=== PATIENT | male | born 1945 | race African-American/Black ===

== ENCOUNTER 2018-08-29 11:08 | Inpatient (IN) | payer OTHER ==
--- OUTSIDE RECORDS SUMMARY | 2018-08-29 11:10 | XMS REPORT | Clinical Summary ---
:1945 Author Organization [facility] Address [address] [place] [address] Care Team Providers Name Role Phone Asked, No Pcp Primary Care Provider Unavailable Allergies No Known Allergies Medications Medication Sig Dispensed Refills Start Date End Date Status amLODIPine (NORVASC) Take 10 mg by mouth 0 Active 10 mg tablet daily. atorvastatin Take 20 mg by mouth 0 Active (LIPITOR) 20 MG daily. Default OP tablet ins furosemide (LASIX) 20 Take 20 mg by mouth 0 Active mg tablet 2 (two) times a day. latanoprost (XALATAN) Administer 1 drop 0 Active 0.005 % ophthalmic to both eyes daily. solution insulin detemir Inject 45 Units 0 Active (LEVEMIR) 100 unit/mL under the skin injection nightly. insulin ASPART Inject 5 Units 0 Active (NovoLOG) 100 unit/mL under the skin 3 injection (three) times a day before meals. calcium carbonate 650 Take 1 tablet by 0 Active mg calcium (1,625 mg) mouth as needed for tablet indigestion. cholecalciferol, Take 2,000 Units by 0 Active vitamin D3, (VITAMIN mouth daily. D3) 2,000 unit capsule capsule metoprolol succinate Take 25 mg by mouth 0 Active XL (TOPROL-XL) 25 mg daily. 24 hr tablet WILMA ASPIRIN ORAL Take 81 mg by mouth 0 Active daily. Active Problems Problem Noted Date Chronic kidney disease (CKD), stage V 08/17/2017 Encounters Date Type Specialty Care Team Description 09/03/2017 Office Visit General Surgery Carlos Albert Surgery follow- up MD Kojo (Primary Dx) after 08/28/2017 Social History Tobacco Use Types Packs/Day Years Used Date Never Smoker Smokeless Tobacco: Never Used Alcohol Use Drinks/Week oz/Week Comments No Sex Assigned at Date Recorded Not on file Job Start Date Occupation Industry Not on file Not on file Not on file Travel History Travel Start Travel End No recent travel history available. Last Filed Vital Signs Vital Sign Reading Time Taken Blood Pressure 164/75 09/03/2017 1:23 PM CDT Pulse 78 09/03/2017 1:23 PM CDT Temperature - - Respiratory Rate - - Oxygen Saturation - - Inhaled Oxygen Concentration - - Weight 117 kg (257 lb) 09/03/2017 1:23 PM CDT Height 165.1 cm (5' 5") 09/03/2017 1:23 PM CDT Body Mass Index 42.77 09/03/2017 1:23 PM CDT Plan of Treatment Health Maintenance Due Date Last Done Comments COLON CANCER SCREENING 1997 SHINGLES VACCINES (#1) 1997 65+ PNEUMOCOCCAL VACCINE (1 of 2 - PCV13) 2012 PNEUMOCOCCAL POLYSACCHARIDE VACCINE AGE 65 AND OVER 2012 INFLUENZA VACCINE 12/30/2017 Implants Implanted Type Area Candy Butcher Device Shelf Model / Identifier Expiration Serial / Date Lot Catheter 19.5cm Peritoneal Dialysis Extended - [id number] Surgical N/A: N/A 04/30/2022 SNPS 14030 / Implanted: 08/17/2017 (Quantity not on file) Implants; / Expanders; [id number] Extenders; Surgical Wires Results Not on fileafter 08/28/2017 Insurance Payer Benefit Plan / Group Subscriber ID Type Phone Address MEDICARE MEDICARE PART A AND B xxxxxxxxxx Medicare [place], [place] (Home) [place] [address] Advance Directives Patient has advance care planning documents on file. For more information, please contact:[address] [place] [address]
[2018-08-29 11:54] LABS: Absolute Lymphocytes (CBC) 0.6 K/uL (0.7-4.9); Absolute Monocytes 0.9 K/uL (0.1-1.3); Absolute Neutrophil 18.5 K/uL (1.8-8.0); Basophils % 0.4 % (0-1.3); Eosinophils % 0.1 % (0-4.4); Hematocrit 34.5 % (39.6-49.0); Lymphocytes % 3.1 % (15.3-44.8); MPV 8.3 fL (7.6-11.3); Monocytes % 4.6 % (3.3-12.3); RBC Red Blood Cell Count 4.18 M/uL (4.33-5.43)
--- NOTE | 2018-08-29 12:18 | RAD REPORT ---
EXAM DESCRIPTION: CT - Stone Protocol - 08/29/2018 12:02 pm CLINICAL HISTORY: left flank pain, hematuria, peritoneal dialysis COMPARISON: July 2015 TECHNIQUE: Axial 5 mm thick images were obtained without oral or IV contrast. The [id number] span s the entirety of the system including uppermost abdomen and lung bases. All CT scans are performed using dose optimization technique as appropriate and may include automated exposure control or mA/KV adjustment according to patient size. FINDINGS: No hydronephrosis present. No obstructing or nonobstructing calculi. Bilateral perinephric stranding is present new from the 2016 comparison. This is slightly worse on the left. No suspicious renal masses. Isodense masses and pyelonephritis are not excluded on a stone protocol CT scan. Urina ry bladder is mostly contracted. No gross abnormality seen. No significant adrenal finding. Imaged portions of the liver, spleen and pancreas show no suspicious findings on non-contrast imaging . Small cyst posterior subcapsular right lobe has not changed since 2016. No gallbladder or biliary t ree abnormality seen. Gallstones can be occult. No dilated bowel loops or bowel wall thickening. No acute GI process identifiable. No hernia, mass or bulky lymphadenopathy noted. No free air or pneumatosis. Trace amount of peritonea l free fluid is present not unexpected. Patient is a peritoneal dialysis patient. No acute bone finding. Vascular calcifications are present. IMPRESSION: No hydronephrosis or obstructing calculus present. Left greater than right perinephric stranding is present. This is new from 2016. Pyelonephritis and i sodense masses are not excluded. No acute finding. Trace amount of free fluid is present not unexpected given the peritoneal dialysis status. Isodense masses and pyelonephritis are not excluded on stone protocol technique.
[2018-08-29 12:36] LABS: Blood Morphology Comment NOT SEEN (NOT SEEN); Platelet Estimate ADEQ
--- NOTE | 2018-08-29 12:41 | EDPHYS ---
Physician Documentation [facility] Name: Jeffery Sneed Age: 73 yrs Sex: Male : 1945 Arrival Date: 08/29/2018 Time: 11:11 Bed 4 Private [facility] Phys[facility] Rojelio Ortiz HPI: 08/29 11:28 This 73 yrs old Black Male presents to ER via Unassigned with complaints of Weakness, rn Urinary Problem. 11:29 The patient presents with pain that is acute. The symptoms are located in the low back. rn Onset: The symptoms/episode began/occurred 2 week(s) ago. The pain does not radiate. Severity of symptoms: At their worst the symptoms were moderate, in the emergency department the symptoms are unchanged. The patient has experienced similar episodes in the past. Reports muscle spasms of back for 2 weeks, reports told by dialysis nurse to get checked because temperature was 99, patient reports painful urination and small amount of blood in urine. No chest pain/cough/sob/abd pain. Denies vomiting/diarrhea. NO trauma. No known prostate problems. . Historical: - Allergies: 11:33 NKA; iw - Home Meds: 11:36 Levemir 100 unit/mL subcutaneous soln 10 units in morning, 50 units at night [Active]; iw Novolog 100 unit/mL Sub-Q soln before meals [Active]; Vitamin C Oral daily [Active]; lisinopril 20 mg oral tab once daily [Active]; calcitriol oral oral MWF [Active]; metoprolol tartrate 25 mg Oral tab 1 tab once daily [Active]; amlodipine 10 mg tab 1 tab once daily [Active]; furosemide 80 mg Oral tab 1 tab 2 times per day [Active]; aspirin 81 mg Oral TbEC 1 tab once daily [Active]; calcium carbonate 600 mg (1,500 mg) Oral tab daily [Active]; Vitamin D Oral daily [Active]; - PMHx: 11:33 Glaucoma; Hyperlipidemia; Hypertension; IDDM; Dialysis; iw - PSHx: 11:33 None; iw - Immunization history:: Adult Immunizations up to date. - Social history:: Smoking status: Patient/guardian denies using tobacco. - Family history:: not pertinent. - Ebola Screening: : Patient negative for fever greater than or equal to 101.5 degrees Fahrenheit, and additional compatible Ebola Virus Disease symptoms Patient denies exposure to infectious person Patient denies travel to an Ebola-affected area in the 21 days before illness onset No symptoms or risks identified at this time. - Hospitalizations: : No recent hospitalization is reported. ROS: 11:29 Constitutional: Negative for fever, chills, and weight loss, Eyes: Negative for injury, rn pain, redness, and discharge, Cardiovascular: Negative for chest pain, palpitations, and edema, Respiratory: Negative for shortness of breath, cough, wheezing, and pleuritic chest pain, Abdomen/GI: Negative for abdominal pain, nausea, vomiting, diarrhea, and constipation, Back: + left low back pain : + dysuria and hematuria MS/Extremity: Negative for injury and deformity, Neuro: Negative for headache, numbness, tingling, and seizure. Exam: 11:29 Constitutional: Overweight male, no acute distress, sitting upright Head/Face: rn Normocephalic, atraumatic. ENT: MMM Respiratory: No increased work of breathing, no retractions or nasal flaring. Abdomen/GI: soft, non-tender, no skin changes Back: No spinal tenderness. No costovertebral tenderness. Painful ROM and ain with getting into bed Skin: Warm, dry, and no evidence of cellulitis. MS/ Extremity: Pulses equal, no cyanosis. Neurovascular intact. Full, normal range of motion. Equal circumference. Neuro: Awake and alert, GCS 15, oriented to person, place, time, and situation. Cranial nerves II-XII grossly intact. Motor strength 5/5 in all extremities. Sensory grossly intact. Cerebellar exam normal. Antalgic gait. Vital Signs: 11:31 BP 162 / 96; Pulse 100; Resp 19 S; Temp 99.4(O); Pulse Ox 100% on R/A; Weight 116.12 iw kg; Height 5 ft. 5 in. (165.10 cm); Pain 0/10; 12:30 BP 133 / 75; Pulse 96; Resp 18 S; Pulse Ox 99% on R/A; aa5 13:10 BP 147 / 78; Pulse 95; Resp 18 S; Temp 100.2(O); Pulse Ox 99% on R/A; aa5 13:56 BP 147 / 79; Pulse 92; Resp 18 S; Temp 100.5(O); Pulse Ox 100% on R/A; aa5 11:31 Body Mass Index 42.60 (116.12 kg, 165.10 cm) iw MDM: 11:20 Patient medically screened. rn 12:39 Differential diagnosis: chronic back pain, Pyelonephritis Ureterolithiasis UTI, muscle rn spasm, radiculopathy. Data reviewed: vital signs, nurses notes, lab test result(s), radiologic studies, CT scan, and as a result, I will admit patient. Counseling: I had a detailed discussion with the patient and/or guardian regarding: the historical points, exam findings, and any diagnostic results supporting the discharge/admit diagnosis, lab results, radiology results, the need for further work-up and treatment in the hospital. Admission orders: after a detailed discussion of the patient's condition and case, the admit orders are written by me. 08/29 11:27 Order name: CBC with Diff; Complete Time: 12:43 08/29 11:27 Order name: Basic Metabolic Panel; Complete Time: 12:19 08/29 11:27 Order name: Urine Culture 08/29 11:27 Order name: Urine Microscopic Only 08/29 11:27 Order name: Procalcitonin; Complete Time: 12:21 rn 08/29 12:21 Order name: Blood Culture Adult (2) 08/29 11:27 Order name: IV Start; Complete Time: 12:01 rn 08/29 11:27 Order name: Urine Dipstick-Ancillary (obtain specimen); Complete Time: 13:13 08/29 11:27 Order name: CT Stone Protocol; Complete Time: 12:19 08/29 12:36 Order name: Urine Dipstick--Ancillary (enter results) 08/29 12:36 Order name: Manual Differential; Complete Time: 12:43 EDMS Administered Medications: 13:10 Drug: Rocephin - (cefTRIAXone) 1 grams {Note: administered slow IVP per pharmacy at aa5 this time .} Route: IVPB; Infused Over: 30 mins; Site: left antecubital; 13:20 Follow up: Response: No adverse reaction aa5 13:13 Drug: Tylenol 650 mg Route: PO; aa5 13:56 Follow up: Response: No adverse reaction aa5 Disposition: 08/29/18 12:40 Hospitalization ordered by Cervantes, Poyani for Inpatient Admission. Preliminary diagnosis is Pyelonephritis. - Bed requested for Telemetry/MedSurg (Inpatient). - Status is Inpatient Admission. iw - Condition is Stable. - Problem is new. - Symptoms have improved. UTI on Admission? Yes Signatures: Dispatcher [employer] EDMS Марина Cronin RN RN dw Jackelyn Garzon RN RN iw Rojelio Ortiz MD MD rn Calderon, Audri, RN RN aa[address] Corrections: (The following items were deleted from the chart) 12:45 12:40 Hospitalization Ordered by Celso Eaton DO for Inpatient Admission. Preliminary rn diagnosis is Pyelonephritis. Bed requested for Telemetry/MedSurg (Inpatient). Status is Inpatient Admission. Condition is Stable. Problem is new. Symptoms have improved. UTI on Admission? Yes. rn 13:05 12:45 08/29/2018 12:40 Hospitalization Ordered by Rosy Cervantes MD for Inpatient eb Admission. Preliminary diagnosis is Pyelonephritis. Bed requested for Telemetry/MedSurg (Inpatient). Status is Inpatient Admission. Condition is Stable. Problem is new. Symptoms have improved. UTI on Admission? Yes. rn 13:40 13:05 08/29/2018 12:40 Hospitalization Ordered by Rosy Cervantes MD for Inpatient dw Admission. Preliminary diagnosis is Pyelonephritis. Bed requested for Telemetry/MedSurg (Inpatient). Status is Inpatient Admission. Condition is Stable. Problem is new. Symptoms have improved. UTI on Admission? Yes. eb 14:16 13:40 08/29/2018 12:40 Hospitalization Ordered by Rosy Cervantes MD for Inpatient iw Admission. Preliminary diagnosis is Pyelonephritis. Bed requested for Telemetry/MedSurg (Inpatient). Status is Inpatient Admission. Condition is Stable. Problem is new. Symptoms have improved. UTI on Admission? Yes. dw
--- NOTE | 2018-08-29 12:41 | ER ---
Nurse's Notes [facility] Name: Jeffery Sneed Age: 73 yrs Sex: Male : 1945 Arrival Date: 08/29/2018 Time: 11:11 Bed 4 Private MD: Cruz Troy Diagnosis: Pyelonephritis Presentation: 08/29 11:29 Presenting complaint: Patient states: c/o blood in urine, pain with urination since iw yesterday, also c/o left low back pain X 2 weeks, feels like muscle spasms, denies vomiting, diarrhea, or abd pain, hx of peritoneal dialysis X 1 year, last dialyzed yesterday. Transition of care: patient was not received from another setting of care. Onset of symptoms was August 28, 2018. Risk Assessment: Do you want to hurt yourself or someone else? Patient reports no desire to harm self or others. Initial Sepsis Screen: Does the patient meet any 2 criteria? No. Patient's initial sepsis screen is negative. Does the patient have a suspected source of infection? No. Patient's initial sepsis screen is negative. Care prior to arrival: None. 11:29 Method Of Arrival: Wheelchair iw 11:29 Acuity: MAHESH 3 iw Historical: - Allergies: 11:33 NKA; iw - Home Meds: 11:36 Levemir 100 unit/mL subcutaneous soln 10 units in morning, 50 units at night [Active]; iw Novolog 100 unit/mL Sub-Q soln before meals [Active]; Vitamin C Oral daily [Active]; lisinopril 20 mg oral tab once daily [Active]; calcitriol oral oral MWF [Active]; metoprolol tartrate 25 mg Oral tab 1 tab once daily [Active]; amlodipine 10 mg tab 1 tab once daily [Active]; furosemide 80 mg Oral tab 1 tab 2 times per day [Active]; aspirin 81 mg Oral TbEC 1 tab once daily [Active]; calcium carbonate 600 mg (1,500 mg) Oral tab daily [Active]; Vitamin D Oral daily [Active]; - PMHx: 11:33 Glaucoma; Hyperlipidemia; Hypertension; IDDM; Dialysis; iw - PSHx: 11:33 None; iw - Immunization history:: Adult Immunizations up to date. - Social history:: Smoking status: Patient/guardian denies using tobacco. - Family history:: not pertinent. - Ebola Screening: : Patient negative for fever greater than or equal to 101.5 degrees Fahrenheit, and additional compatible Ebola Virus Disease symptoms Patient denies exposure to infectious person Patient denies travel to an Ebola-affected area in the 21 days before illness onset No symptoms or risks identified at this time. - Hospitalizations: : No recent hospitalization is reported. Screenin:30 Abuse screen: Denies threats or abuse. Nutritional screening: No deficits noted. aa5 Tuberculosis screening: No symptoms or risk factors identified. Fall Risk None identified. Assessment: 11:30 General: Appears comfortable, Behavior is calm, cooperative. Pain: Complains of pain in aa5 left low back and left flank Pain currently is 5 out of 10 on a pain scale. Quality of pain is described as "spasm" Is continuous. Neuro: Level of Consciousness is awake, alert, obeys commands, Oriented to person, place, time, situation. Cardiovascular: Heart tones S1 S2 present Rhythm is regular. Respiratory: Airway is patent Respiratory effort is even, unlabored, Respiratory pattern is regular, symmetrical. GI: Abdomen is obese, Peritoneal dialysis Catheter noted Abd is non tender X 4 quads Patient currently denies diarrhea, nausea, vomiting. : Reports pain flank(s), with urination, Reports blood tinged urine. EENT: No signs and/or symptoms were reported regarding the EENT system. Derm: Skin is dry, Skin is normal, Skin temperature is warm. Musculoskeletal: Range of motion: intact in all extremities. 11:30 Reassessment: Pt states he does not need any medication for pain at this time and aa5 states he will notify me when needed. . 12:00 Reassessment: Pt in CT . aa5 12:30 : Urine is blood tinged, Urine micro and culture sent to lab. Pt voided 100 cc. aa5 13:00 Reassessment: Pt resting in bed with eyes closed, respirations even and unlabored, skin aa5 is normal/warm/dry. Pt easy to awaken to verbal stimuli. Awaiting room assignment, pt notified of wait time .. 13:56 Neuro: Level of Consciousness is awake, alert, obeys commands, Oriented to person, aa5 place, time, situation. Respiratory: Airway is patent Respiratory effort is even, unlabored, Respiratory pattern is regular, symmetrical. Derm: Skin is dry, Skin is normal, Skin temperature is warm. 13:56 Pain: Pain currently is 5 out of 10 on a pain scale. aa5 Vital Signs: 11:31 BP 162 / 96; Pulse 100; Resp 19 S; Temp 99.4(O); Pulse Ox 100% on R/A; Weight 116.12 iw kg; Height 5 ft. 5 in. (165.10 cm); Pain 0/10; 12:30 BP 133 / 75; Pulse 96; Resp 18 S; Pulse Ox 99% on R/A; aa5 13:10 BP 147 / 78; Pulse 95; Resp 18 S; Temp 100.2(O); Pulse Ox 99% on R/A; aa5 13:56 BP 147 / 79; Pulse 92; Resp 18 S; Temp 100.5(O); Pulse Ox 100% on R/A; aa5 11:31 Body Mass Index 42.60 (116.12 kg, 165.10 cm) iw ED Course: 11:11 Patient arrived in ED. mr 11:11 [facility] is Private Physician. mr 11:20 Rojelio Ortiz MD is Attending Physician. rn 11:27 Saundra Perez RN is Primary Nurse. aa5 11:31 Triage completed. iw 11:32 Arm band placed on. iw 11:32 Patient has correct armband on for positive identification. Placed in gown. Bed in low aa5 position. Call light in reach. Side rails up X2. 11:32 Initial lab(s) drawn, by ia, sent to lab. Inserted saline lock: 22 gauge in left aa5 antecubital area, using aseptic technique. Blood collected. 12:03 CT Stone Protocol In Process Unspecified. EDMS 12:40 Celso Eaton DO is Hospitalizing Provider. rn 12:45 Rosy Cervantes MD is Hospitalizing Provider. rn 13:27 No provider procedures requiring assistance completed. aa5 14:10 Patient admitted, IV remains in place. aa5 Administered Medications: 13:10 Drug: Rocephin - (cefTRIAXone) 1 grams {Note: administered slow IVP per pharmacy at [facility] this time .} Route: IVPB; Infused Over: 30 mins; Site: left antecubital; 13:20 Follow up: Response: No adverse reaction aa5 13:13 Drug: Tylenol 650 mg Route: PO; aa5 13:56 Follow up: Response: No adverse reaction aa5 Outcome: 12:40 Decision to Hospitalize by Provider. rn 14:10 Admitted to Med/surg accompanied by tech, family with patient, via stretcher, with aa5 chart, Report called to JD Thakkar 14:10 Condition: stable aa5 14:10 Instructed on the need for admit, Demonstrated understanding of instructions. 14:16 Patient left the ED. iw Signatures: Dispatcher [employer] EDIL Marek Karyn Jackelyn Celestin, RN JD iw Rojelio Ortiz MD MD rn Calderon, JD Arguello RN aa5 Corrections: (The following items were deleted from the chart) 11:36 11:31 BP 162 / 96; Pulse 100bpm; Resp 19bpm; Spontaneous; Pulse Ox 100% RA; 116.12 kg; iw Height 5 ft. 5 in.; BMI: 42.6; Pain 0/10; iw 14:26 13:56 Pulse 92bpm; Resp 18bpm; Spontaneous; Pulse Ox 100% RA; Temp 100.5F Oral; aa5 aa5
[2018-08-29] MEDS ORDERED: CEFTRIAXONE/SWI 1gm 1 GM/10 ML SYR ONE ×2 (13:14→22:09)
[2018-08-29 13:20] LABS: Urine Bacteria <20 /HPF (NONE SEEN); Urine Culture Reflex Order NOT NEEDED; Urine RBC >50 /HPF (NONE SEEN)
[2018-08-29] MEDS ORDERED: ACETAMINOPHEN 325 MG TABLET ONE (13:22)
[2018-08-29 14:19] LABS: Urine Blood 3+ (NEG); Urine Glucose TRACE (NEG); Urine Protein 3+ (NEG); Urine Specific Gravity 1.015 (1.005-1.030)
[2018-08-29] MEDS ORDERED: HOME MED 1 EA UNK (Ferric Citrate [Auryxia] 210 MG) PO SCH (19:45)
--- NOTE | 2018-08-29 19:45 | P.HP ---
Patient History Date of Service: 08/29/18 Reason for admission: Pyelonephritis History of Present Illness: This is a 73-year-old male on peritoneal dialysis admitted for low-grade fever and bilateral perinephric stranding on CT. Per patient, he started having left- sided pain and on the side/flank. He rated a 10/10, sharp and associated with the urinary retention. Subjective low-grade temperatures also noted. Therefore brought him to the ER. In the ER, CT scan was done which showed bilateral perinephric stranding. His lab work was remarkable for WBC count of 20.2 and creatinine of 14. His pro calcitonin was elevated to 8.35. Otherwise he is finally stable. At the time of my exam, he was alert oriented x3 in no acute distress. He was hemodynamically stable. Allergies No Known Allergies Allergy (Verified 08/15/15 09:01) Home Medications: Amlodipine Besylate 10 mg PO DAILY 08/29/18 Ascorbic Acid [Vitamin C] 500 mg PO DAILY 08/29/18 Aspirin 81 mg PO DAILY 08/29/18 Atorvastatin Calcium 20 mg PO BEDTIME 08/29/18 Calcitriol 0.5 mcg PO SEECOM 08/29/18 Calcium Carbonate [Calcium] 2 tab PO DAILY 08/29/18 Cholecalciferol (Vitamin D3) [Vitamin D3] 3,000 unit PO DAILY 08/29/18 Ferric Citrate [Auryxia] 210 mg PO SEECOM 08/29/18 Ferrous Sulfate [Iron] 325 mg PO DAILY 08/29/18 Furosemide 80 mg PO TID 08/29/18 Insulin Aspart [Novolog] 10 unit SQ BREAKFAST & LUNCH 08/29/18 Insulin Aspart [Novolog] 15 units SQ DAILY AT SUPPER 08/29/18 Insulin Detemir [Levemir] 10 units SQ BREAKFAST 08/29/18 Insulin Detemir [Levemir] 50 units SQ BEDTIME 08/29/18 Lisinopril 20 mg PO DAILY 08/29/18 Metoprolol Succinate [Toprol Xl] 25 mg PO DAILY 08/29/18 - Past Medical/Surgical History Has patient received pneumonia vaccine in the past: No Diabetic: Yes -: HTN -: Hyperlipidemia -: IDDM -: glaucoma - Family History Mother -: Hypertension, Diabetes - Social History Smoking Status: Never smoker Alcohol use: No CD- Drugs: No Caffeine use: Yes Place of Residence: Home Review of Systems 10-point ROS is otherwise unremarkable Physical Examination - Vital Signs Temperature: 98.3 F Blood Pressure: 129/61 Pulse: 98 Respirations: 18 Pulse Ox (%): 98 - Physical Exam General: Alert, In no apparent distress HEENT: Atraumatic, PERRLA, Mucous membr. moist/pink, EOMI, Sclerae nonicteric Neck: Supple, 2+ carotid pulse no bruit, No LAD, Without JVD or thyroid abnormality Respiratory: Clear to auscultation bilaterally, Normal air movement Cardiovascular: Regular rate/rhythm, Normal S1 S2 Gastrointestinal: Normal bowel sounds, No tenderness Musculoskeletal: No tenderness Integumentary: No rashes Neurological: Normal gait, Normal speech, Normal strength at 5/5 x4 extr, Normal tone, Normal affect Lymphatics: No axilla or inguinal lymphadenopathy - Studies Laboratory Data (last 24 hrs) 08/29/18 11:32: Sodium 139, Potassium 4.0, BUN 110 H, Creatinine 14.00 H*, Glucose 202 H 08/29/18 11:32: WBC 20.2 H*, Hgb 11.0 L, Hct 34.5 L, Plt Count 241 Assessment and Plan - Problems (Diagnosis) (1) Diabetes mellitus Onset Date: 08/13/15 Current Visit: No Status: Acute (2) Hypertension Onset Date: 08/13/15 Current Visit: No Status: Acute (3) ESRD on peritoneal dialysis Current Visit: Yes Status: Acute (4) Flank pain Current Visit: Yes Status: Acute (5) Pyelonephritis Current Visit: Yes Status: Acute - Plan Admit to floor with tele. Monitor via labs. Nephrology consulted, Dr. morales. Pending recommendations Start IV antibiotics, in cultures. We will adjust antibiotics once cultures are back. Monitor vital signs. DVT prophylaxis: Lovenox GI prophylaxis: None Diet: Renal Disposition: Pending symptomatic improvement - Advance Directives Does patient have a Living Will: Yes Does patient have a Durable POA for Healthcare: Yes
[2018-08-29] MEDS ORDERED: CEFTRIAXONE 1 GM/NS 50 ML 1 GM/50 ML BAG IV SCH (21:00)
[2018-08-29] MEDS: INSULIN GLARGINE 100 UNITS/ML SQ SCH (21:47)
[2018-08-29] MEDS: ATORVASTATIN 20 MG TAB PO SCH (21:47)
[2018-08-29] MEDS: FUROSEMIDE 40 MG TABLET PO SCH (21:47)
[2018-08-30 06:47] LABS: Absolute Lymphocytes (CBC) 1.1 K/uL (0.7-4.9); Absolute Monocytes 1.3 K/uL (0.1-1.3); Absolute Neutrophil 15.4 K/uL (1.8-8.0); Basophils % 0.4 % (0-1.3); Eosinophils % 0.6 % (0-4.4); Hematocrit 30.6 % (39.6-49.0); Lymphocytes % 6.1 % (15.3-44.8); MPV 8.5 fL (7.6-11.3); Monocytes % 7.1 % (3.3-12.3); RBC Red Blood Cell Count 3.69 M/uL (4.33-5.43)
[2018-08-30 07:17] LABS: Magnesium 2.4 mg/dL (1.8-2.4); Phosphorus 8.2 mg/dL (2.5-4.9); Potassium 4.1 mmol/L (3.5-5.1)
[2018-08-30] MEDS: INSULIN GLARGINE 100 UNITS/ML SQ SCH ×2 (08:00→21:57)
[2018-08-30] MEDS ORDERED: HOME MED 1 EA UNK (Insulin Detemir [Levemir] 10 UNITS) SQ SCH (08:00)
[2018-08-30] MEDS ORDERED: INSULIN ASPART 10 UNIT SQ SCH (08:00)
[2018-08-30] MEDS: INSULIN LISPRO 100 UNIT/1 ML SQ SCH ×3 (08:49→17:54)
[2018-08-30] MEDS: ERYTHROMYCIN 1 APPL/1 GM TUBE EACH EYE SCH ×2 (08:49→21:59)
[2018-08-30] MEDS: VITAMIN D 1000 UNIT TAB PO SCH (08:52)
[2018-08-30] MEDS: ASPIRIN 81 MG CHEWABLE TABLET PO SCH (08:53)
[2018-08-30] MEDS: AMLODIPINE 10 MG TAB PO SCH (08:53)
[2018-08-30] MEDS: LISINOPRIL 20 MG TAB PO SCH (08:53)
[2018-08-30] MEDS: FERROUS SULFATE 325 MG TAB PO SCH (08:54)
[2018-08-30] MEDS: FUROSEMIDE 40 MG TABLET PO SCH ×3 (08:54→22:00)
[2018-08-30] MEDS: METOPROLOL XL 25 MG TAB PO SCH (08:54)
[2018-08-30] MEDS: CEFTRIAXONE/SWI 1gm 1 GM/10 ML SYR IV SCH ×2 (08:55→22:00)
[2018-08-30] MEDS: CALCIUM CARBONATE 500 MG TAB PO SCH (08:55)
[2018-08-30] MEDS ORDERED: CALCIUM CARBONATE PO SCH (09:00)
[2018-08-30] MEDS ORDERED: ERYTHROMYCIN 3.5GM OPTH OINT EACH EYE SCH (09:00)
[2018-08-30] MEDS ORDERED: TOBRADEX 0.3-0.1% OPTH SUSP OPTH SCH (09:00)
[2018-08-30] MEDS: CALCITROL 0.25 MCG CAP PO SCH (09:23)
[2018-08-30] MEDS ORDERED: INSULIN ASPART 15 UNIT SQ SCH (17:00)
--- NOTE | 2018-08-30 19:59 | P.PN ---
Subjective Date of Service: 08/30/18 Chief Complaint: Pyelonephritis Subjective: Improving Patient seen and examined at bedside. at bedside. Chart reviewed and case discussed with nursing staff. Patient without any complaints this morning. Comfortably in the shower. Afebrile overnight, vital signs stable Review of Systems 10-point ROS is otherwise unremarkable Physical Examination - Vital Signs Temperature: 98.3 F Blood Pressure: 129/61 Pulse: 98 Respirations: 18 Pulse Ox (%): 98 - Physical Exam General: Alert, In no apparent distress Neck: Supple, JVD not distended Respiratory: Clear to auscultation bilaterally, Normal air movement Cardiovascular: Regular rate/rhythm, Normal S1 S2 Assessment And Plan - Current Problems (Diagnosis) (1) Diabetes mellitus Onset Date: 08/13/15 Current Visit: No Status: Acute (2) Hypertension Onset Date: 08/13/15 Current Visit: No Status: Acute (3) ESRD on peritoneal dialysis Current Visit: Yes Status: Acute (4) Flank pain Current Visit: Yes Status: Acute (5) Pyelonephritis Current Visit: Yes Status: Acute - Plan Continue to monitor on floor with tele. Monitor via labs. Nephrology consulted, Dr. morales. Pending recommendations Continue IV antibiotics, pending cultures. We will adjust antibiotics once cultures are back. Blood cultures also seem to positive, pending final cultures and sensitivities. Monitor vital signs. DVT prophylaxis: Lovenox GI prophylaxis: None Diet: Renal Disposition: Pending symptomatic improvement. Possible discharge home in the next 24-48 hr once cultures are back.
[2018-08-30] MEDS ORDERED: LATANOPROST 0.005% 2.5ML OPTH OPTH SCH (21:00)
--- NOTE | 2018-08-30 21:34 | P.CNS ---
Date of Consult: 08/30/18 Reason for Consult: ESRD on PD Requesting Physician: Rosy Cervantes Chief Complaint: Pyelonephritis History of Present Illness: This is a 73-year-old male on peritoneal dialysis admitted for low-grade fever and bilateral perinephric stranding on CT. Per patient, he started having left- sided pain and on the side/flank. He rated a 10/10, sharp and associated with the urinary retention. Subjective low-grade temperatures also noted. Therefore brought him to the ER. 11:28 This 73 yrs old Black Male presents to ER via Unassigned with complaints of Weakness, rn Urinary Problem. 11:29 The patient presents with pain that is acute. The symptoms are located in the low back. rn Onset: The symptoms/episode began/occurred 2 week(s) ago. The pain does not radiate. Severity of symptoms: At their worst the symptoms were moderate, in the emergency department the symptoms are unchanged. The patient has experienced similar episodes in the past. Reports muscle spasms of back for 2 weeks, reports told by dialysis nurse to get checked because temperature was 99, patient reports painful urination and small amount of blood in urine. No chest pain/cough/sob/abd pain. Denies vomiting/diarrhea. NO trauma. No known prostate problems. Allergies No Known Allergies Allergy (Verified 08/15/15 09:01) Home medications list reviewed: Yes Home Medications: Amlodipine Besylate 10 mg PO DAILY 08/29/18 Ascorbic Acid [Vitamin C] 500 mg PO DAILY 08/29/18 Aspirin 81 mg PO DAILY 08/29/18 Atorvastatin Calcium 20 mg PO BEDTIME 08/29/18 Calcitriol 0.5 mcg PO SEECOM 08/29/18 Calcium Carbonate [Calcium] 2 tab PO DAILY 08/29/18 Cholecalciferol (Vitamin D3) [Vitamin D3] 3,000 unit PO DAILY 08/29/18 Ferric Citrate [Auryxia] 210 mg PO SEECOM 08/29/18 Ferrous Sulfate [Iron] 325 mg PO DAILY 08/29/18 Furosemide 80 mg PO TID 08/29/18 Insulin Aspart [Novolog] 10 unit SQ BREAKFAST & LUNCH 08/29/18 Insulin Aspart [Novolog] 15 units SQ DAILY AT SUPPER 08/29/18 Insulin Detemir [Levemir] 10 units SQ BREAKFAST 08/29/18 Insulin Detemir [Levemir] 50 units SQ BEDTIME 08/29/18 Lisinopril 20 mg PO DAILY 08/29/18 Metoprolol Succinate [Toprol Xl] 25 mg PO DAILY 08/29/18 - Past Medical/Surgical History Diabetic: Yes -: HTN -: Hyperlipidemia -: IDDM -: glaucoma - Family History Mother Medical History: Hypertension, Diabetes - Social History Alcohol use: No CD- Drugs: No Caffeine use: Yes Place of Residence: Home Review of Systems 10-point ROS is otherwise unremarkable General: Weakness, Malaise Physical Examination Temp Pulse Resp BP Pulse Ox 98.0 F 77 20 141/63 H 98 08/30/18 20:00 08/30/18 20:00 08/30/18 20:00 08/30/18 20:00 08/30/18 20:00 General: In no apparent distress, Oriented x3, Cooperative HEENT: Atraumatic Neck: Supple Respiratory: Clear to auscultation bilaterally Cardiovascular: Regular rate/rhythm, Edema Gastrointestinal: Soft and benign, Non-distended, No guarding Musculoskeletal: No clubbing, No contractures Integumentary: No rashes, No cyanosis Neurological: Normal speech Blood work reviewed in the chart. BUN 126/ Cr 15.8 Imagings Data: EXAM DESCRIPTION: CT - Stone Protocol - 08/29/2018 12:02 pm CLINICAL HISTORY: left flank pain, hematuria, peritoneal dialysis COMPARISON: July 2015 TECHNIQUE: Axial 5 mm thick images were obtained without oral or IV contrast. The [id number] spans the entirety of the system including uppermost abdomen and lung bases. All CT scans are performed using dose optimization technique as appropriate and may include automated exposure control or mA/KV adjustment according to patient size. FINDINGS: No hydronephrosis present. No obstructing or nonobstructing calculi. Bilateral perinephric stranding is present new from the 2016 comparison. This is slightly worse on the left. No suspicious renal masses. Isodense masses and pyelonephritis are not excluded on a stone protocol CT scan. Urinary bladder is mostly contracted. No gross abnormality seen. No significant adrenal finding. Imaged portions of the liver, spleen and pancreas show no suspicious findings on non-contrast imaging. Small cyst posterior subcapsular right lobe has not changed since 2016. No gallbladder or biliary tree abnormality seen. Gallstones can be occult. No dilated bowel loops or bowel wall thickening. No acute GI process identifiable. No hernia, mass or bulky lymphadenopathy noted. No free air or pneumatosis. Trace amount of peritoneal free fluid is present not unexpected. Patient is a peritoneal dialysis patient. No acute bone finding. Vascular calcifications are present. IMPRESSION: No hydronephrosis or obstructing calculus present. Left greater than right perinephric stranding is present. This is new from 2016. Pyelonephritis and isodense masses are not excluded. No acute finding. Trace amount of free fluid is present not unexpected given the peritoneal dialysis status. Isodense masses and pyelonephritis are not excluded on stone protocol technique. Conclusions/Impression: A/ ESRD on HD. Proteinuria. HTN with CKD/ CHF. Diastolic CHF, chronic. Anemia in CKD. DM II with CKD. EMI/ Secondary HyperPTH. Hypocalcemia. HyperPO4. GNR Cystitis/ Pyelonephritis. P/ Continue current POC and Medications. Continue home PD prescription. Agree with abx. Follow up cultures. Titrate insulin as needed. Restart home medications as indicated. Agree with diuresis. Give Procrit. No NSAIDs. AM labs. Daily weight. Thank you kindly for the consultation.
[2018-08-30] MEDS ORDERED: EPOETIN ALFA 10,000 UNIT/ML SQ ONE (21:48)
[2018-08-30] MEDS: ATORVASTATIN 20 MG TAB PO SCH (22:00)
[2018-08-30] MEDS ORDERED: EPOETIN ALFA 10,000 UNIT/ML VIAL ONE (23:35)
[2018-08-31] MEDS: INSULIN GLARGINE 100 UNITS/ML SQ SCH ×2 (08:00→20:39)
[2018-08-31] MEDS ORDERED: PNEUMOCOCCAL VACCINE 0.5 ML IMVAC ONE (08:00)
[2018-08-31] MEDS: INSULIN LISPRO 100 UNIT/1 ML SQ SCH ×3 (08:44→18:03)
[2018-08-31] MEDS: CEFTRIAXONE/SWI 1gm 1 GM/10 ML SYR IV SCH ×2 (08:47→20:40)
[2018-08-31] MEDS: ERYTHROMYCIN 1 APPL/1 GM TUBE EACH EYE SCH ×2 (08:51→20:41)
[2018-08-31] MEDS: ASPIRIN 81 MG CHEWABLE TABLET PO SCH (08:51)
[2018-08-31] MEDS: FERROUS SULFATE 325 MG TAB PO SCH (08:52)
[2018-08-31] MEDS: CALCIUM CARBONATE 500 MG TAB PO SCH (08:52)
[2018-08-31] MEDS: FUROSEMIDE 40 MG TABLET PO SCH ×3 (08:52→20:39)
[2018-08-31] MEDS: LISINOPRIL 20 MG TAB PO SCH (08:52)
[2018-08-31] MEDS: VITAMIN D 1000 UNIT TAB PO SCH (08:53)
[2018-08-31] MEDS: AMLODIPINE 10 MG TAB PO SCH (08:54)
[2018-08-31] MEDS: METOPROLOL XL 25 MG TAB PO SCH (08:54)
--- NOTE | 2018-08-31 18:47 | P.PN ---
Date of Service: 08/31/18 Vital Signs Temp Pulse Resp BP Pulse Ox 98.5 F 69 18 119/51 L 97 08/31/18 16:00 08/31/18 16:00 08/31/18 16:00 08/31/18 16:00 08/31/18 16:00 Medications Amlodipine Besylate (Norvasc) 10 mg PO DAILY JOE Stop: 09/29/18 09:01 Last Admin: 08/31/18 08:54 Dose: 10 mg Aspirin (Aspirin Chewable) 81 mg PO DAILY JOE Stop: 09/29/18 09:01 Last Admin: 08/31/18 08:51 Dose: 81 mg Atorvastatin Calcium (Lipitor) 20 mg PO BEDTIME JOE Stop: 09/28/18 21:01 Last Admin: 08/30/18 22:00 Dose: 20 mg Calcitriol (Rocaltrol) 0.5 mcg PO MoWeFr@0900 JOE Stop: 09/29/18 09:01 Last Admin: 08/30/18 09:23 Dose: 0.5 mcg Calcium Carbonate/Glycine (Oscal) 1,000 mg PO DAILY JOE Stop: 09/29/18 09:01 Last Admin: 08/31/18 08:52 Dose: 1,000 mg Cholecalciferol (Vitamin D 1000 Iu Tab) 3,000 unit PO DAILY JOE Stop: 09/29/18 09:01 Last Admin: 08/31/18 08:53 Dose: 3,000 unit Erythromycin (Erythromycin Eye Ointment) 1 appl EACH EYE BID JOE Stop: 09/29/18 09:01 Last Admin: 08/31/18 08:51 Dose: 1 appl Ferrous Sulfate (Feosol) 325 mg PO DAILY JOE Stop: 09/29/18 09:01 Last Admin: 08/31/18 08:52 Dose: 325 mg Furosemide (Lasix) 80 mg PO TID JOE Stop: 09/28/18 22:01 Last Admin: 08/31/18 14:00 Dose: 80 mg Home Med (Ferric Citrate [Auryxia]) 210 mg PO SEECOM JOE Stop: 09/28/18 19:46 Ceftriaxone Sodium/Sodium Chloride (Rocephin 1 Gm/10 Ml Swi Ivp) 1 gm in 10 mls @ 600 mls/hr IV Q12HR JOE; Protocol Stop: 09/29/18 09:01 Last Admin: 08/31/18 08:47 Dose: 10 mls Insulin Glargine (Lantus) 50 units SQ BEDTIME JOE Stop: 09/28/18 21:01 Last Admin: 08/30/18 21:57 Dose: 50 units Insulin Glargine (Lantus) 10 units SQ BREAKFAST JOE Stop: 09/29/18 08:01 Last Admin: 08/31/18 08:00 Dose: 10 units Insulin Human Lispro (Humalog) 10 unit SQ BREAKFAST & LUNCH JOE Stop: 09/29/18 08:01 Last Admin: 08/31/18 11:57 Dose: 10 unit Insulin Human Lispro (Humalog) 15 unit SQ DAILY AT SUPPER JOE Stop: 09/29/18 17:01 Last Admin: 08/31/18 18:03 Dose: 15 unit Latanoprost (Xalatan 0.005% Ophth Bri) 1 drops OPTH BEDTIME JOE Stop: 09/29/18 21:01 Last Admin: 08/30/18 21:59 Dose: 1 drop Lisinopril (Prinivil) 20 mg PO DAILY JOE Stop: 09/29/18 09:01 Last Admin: 08/31/18 08:52 Dose: 20 mg Metoprolol Succinate (Toprol Xl) 25 mg PO DAILY JOE Stop: 09/29/18 09:01 Last Admin: 08/31/18 08:54 Dose: 25 mg Microbiology Results 08/29/18 12:50 Blood - Blood Aerobic Blood Culture - Preliminary 08/29/18 12:50 Blood - Blood Gram Stain - Preliminary 08/29/18 12:50 Blood - Blood Anaerobic Blood Culture - Preliminary 08/29/18 12:50 Blood - Blood Gram Stain - Preliminary 08/29/18 12:35 Blood - Blood Aerobic Blood Culture - Preliminary 08/29/18 12:35 Blood - Blood Gram Stain - Preliminary 08/29/18 12:35 Blood - Blood Anaerobic Blood Culture - Preliminary 08/29/18 12:35 Blood - Blood Gram Stain - Preliminary 08/29/18 12:30 Clean Catch Urine [place] Count - Final >100,000 CFU/ML. 08/29/18 12:30 Clean Catch Urine - Final Escherichia Coli Assessment/ Plan: Nephrology. Feeling better today. Currently doing PD without complications. Case discussed with the . CPS stable without CP or SOB. No acute events overnight. Vitals, medications, blood work and imaging reviewed in the chart. General: In no apparent distress, Oriented x3, Cooperative HEENT: Atraumatic Neck: Supple Respiratory: Clear to auscultation bilaterally Cardiovascular: Regular rate/rhythm, Edema Gastrointestinal: Soft and benign, Non-distended, No guarding Musculoskeletal: No clubbing, No contractures Integumentary: No rashes, No cyanosis Neurological: Normal speech Blood work reviewed in the chart. BUN 126/ Cr 15.8 Imagings Data: EXAM DESCRIPTION: CT - Stone Protocol - 08/29/2018 12:02 pm CLINICAL HISTORY: left flank pain, hematuria, peritoneal dialysis COMPARISON: July 2015 TECHNIQUE: Axial 5 mm thick images were obtained without oral or IV contrast. The [id number] spans the entirety of the system including uppermost abdomen and lung bases. All CT scans are performed using dose optimization technique as appropriate and may include automated exposure control or mA/KV adjustment according to patient size. FINDINGS: No hydronephrosis present. No obstructing or nonobstructing calculi. Bilateral perinephric stranding is present new from the 2016 comparison. This is slightly worse on the left. No suspicious renal masses. Isodense masses and pyelonephritis are not excluded on a stone protocol CT scan. Urinary bladder is mostly contracted. No gross abnormality seen. No significant adrenal finding. Imaged portions of the liver, spleen and pancreas show no suspicious findings on non-contrast imaging. Small cyst posterior subcapsular right lobe has not changed since 2016. No gallbladder or biliary tree abnormality seen. Gallstones can be occult. No dilated bowel loops or bowel wall thickening. No acute GI process identifiable. No hernia, mass or bulky lymphadenopathy noted. No free air or pneumatosis. Trace amount of peritoneal free fluid is present not unexpected. Patient is a peritoneal dialysis patient. No acute bone finding. Vascular calcifications are present. IMPRESSION: No hydronephrosis or obstructing calculus present. Left greater than right perinephric stranding is present. This is new from 2016. Pyelonephritis and isodense masses are not excluded. No acute finding. Trace amount of free fluid is present not unexpected given the peritoneal dialysis status. Isodense masses and pyelonephritis are not excluded on stone protocol technique. Conclusions/Impression: A/ ESRD on HD. Proteinuria. HTN with CKD/ CHF. Diastolic CHF, chronic. Anemia in CKD. DM II with CKD. EMI/ Secondary HyperPTH. Hypocalcemia. HyperPO4. E.coli Cystitis/ Pyelonephritis. P/ Continue current POC and Medications. Continue home PD prescription. Start PO4 binder. Agree with abx. May be able to change to PO abx soon. Titrate insulin as needed. Agree with diuresis. No NSAIDs. AM labs. Daily weight.
[2018-08-31] MEDS: ATORVASTATIN 20 MG TAB PO SCH (20:38)
[2018-08-31] MEDS ORDERED: OPTH OPTH SCH (21:00)
[2018-08-31] MEDS ORDERED: LATANOPROST 0.005% OPTH SCH (21:00)
--- NOTE | 2018-08-31 22:24 | PN ---
Date of Progress Note: 08/31/2018 Subjective: The patient is seen and examined. Chart reviewed and case discussed with RN. The patie nt does not have any specific complaints. Code Status: Full. Medications: List reviewed. Physical Examination: Vital Signs: Temperature 97.2, heart rate 74, blood pressure 118/70, respirations 18, and O2 of 96% on room air. General: Awake, alert, and oriented x3 elderly male, no acute distress. Obese, BMI 42. CV: S1 and S2. Regular rate and rhythm. Peripheral pulses present. Respiratory: Moving air well bilaterally. No wheezing. Gastrointestinal: Abdomen is soft, nontender, and nondistended. Positive bowel sounds. Extremities: No clubbing or cyanosis. The patient does have peripheral edema. Neurologic: Nonfocal. Laboratory Data: Hemoglobin A1c is 7.7, rest of the labs are pending. Urine culture growing out Esc herichia coli resistant to ampicillin. Blood cultures growing out gram-negative rods. Assessment And Plan: A 73-year-old male with, 1.Acute pyelonephritis secondary to Escherichia coli. Urine cultures positive. We will continue IV antibiotics. The patient is currently on Rocephin. 2.Bacteremia secondary to gram-negative rods. ID and sensitivity pending at this time. We will con tinue IV antibiotics for now. White blood cell count is improving. The patient has been afebrile si nce the . We will continue to monitor. 3.Diabetes mellitus type 2 with chronic kidney disease, on insulin. We will monitor Accu-Cheks and continue sliding scale insulin. 4.Essential hypertension. Resume home medications. Continue to monitor. Stable. 5.End-stage renal disease, on peritoneal dialysis. We will continue for now. Dr. Lozano on board. 6.Flank pain secondary to pyelonephritis, improving. 7.Plan: Discharge once ID and sensitivity for blood cultures have returned and the patient is impro hill clinically. Currently still has elevated white blood cell count, needs dialysis. SA/MODL Voice ID: [id number] Report ID: [id number]
[2018-09-01 04:14] LABS: Absolute Neutrophil 9.5 K/uL (1.8-8.0); Basophils % 0.5 % (0-1.3); Eosinophils % 3.7 % (0-4.4); Hematocrit 28.7 % (39.6-49.0); MPV 9.2 fL (7.6-11.3); Monocytes % 8.2 % (3.3-12.3); RBC Red Blood Cell Count 3.51 M/uL (4.33-5.43)
[2018-09-01 05:01] LABS: Albumin 2.5 g/dL (3.4-5.0); Bilirubin Total 0.2 mg/dL (0.2-1.0); Magnesium 2.3 mg/dL (1.8-2.4); Potassium 3.8 mmol/L (3.5-5.1); Protein, Total 6.6 g/dL (6.4-8.2); Uric Acid 9.3 mg/dL (3.5-7.2)
[2018-09-01 05:06] LABS: Phosphorus 8.9 mg/dL (2.5-4.9)
[2018-09-01 08:09] LABS: Urine Appearance CLEAR; Urine Bilirubin NEGATIVE (NEG); Urine Blood 3+ (NEG); Urine Color YELLOW; Urine Glucose TRACE (NEG); Urine Protein 2+ (NEG); Urine Urobilinogen 0.2 mg/dL (0.2-1.0)
[2018-09-01] MEDS: INSULIN GLARGINE 100 UNITS/ML SQ SCH (08:30)
[2018-09-01] MEDS: SEVELAMER CARBONATE 800 MG TABLET PO SCH ×2 (08:30→12:10)
[2018-09-01] MEDS: INSULIN LISPRO 100 UNIT/1 ML SQ SCH ×2 (08:31→12:10)
[2018-09-01] MEDS: ERYTHROMYCIN 1 APPL/1 GM TUBE EACH EYE SCH (09:00)
[2018-09-01] MEDS: CALCIUM CARBONATE 500 MG TAB PO SCH (09:24)
[2018-09-01] MEDS: VITAMIN D 1000 UNIT TAB PO SCH (09:24)
[2018-09-01] MEDS: METOPROLOL XL 25 MG TAB PO SCH (09:24)
[2018-09-01] MEDS: ASPIRIN 81 MG CHEWABLE TABLET PO SCH (09:24)
[2018-09-01 09:25] LABS: Urine Bacteria <20 /HPF (NONE SEEN); Urine Culture Reflex Order REFLEXED; Urine RBC 20-50 /HPF (NONE SEEN)
[2018-09-01] MEDS: FUROSEMIDE 40 MG TABLET PO SCH ×2 (09:25→14:21)
[2018-09-01] MEDS: AMLODIPINE 10 MG TAB PO SCH (09:25)
[2018-09-01] MEDS: CALCITROL 0.25 MCG CAP PO SCH (09:25)
[2018-09-01] MEDS: LISINOPRIL 20 MG TAB PO SCH (09:25)
[2018-09-01] MEDS: FERROUS SULFATE 325 MG TAB PO SCH (09:26)
[2018-09-01] MEDS: CEFTRIAXONE/SWI 1gm 1 GM/10 ML SYR IV SCH (09:30)
--- NOTE | 2018-09-01 22:17 | P.PN ---
Date of Service: 09/01/18 Vital Signs Temp Pulse Resp BP Pulse Ox 97.7 F 77 18 145/91 H 98 09/01/18 12:00 09/01/18 14:21 09/01/18 12:00 09/01/18 14:21 09/01/18 12:00 Microbiology Results 08/29/18 12:35 Blood - Blood Aerobic Blood Culture - Final Escherichia Coli 08/29/18 12:35 Blood - Blood Gram Stain - Final 08/29/18 12:35 Blood - Blood Anaerobic Blood Culture - Final Escherichia Coli 08/29/18 12:35 Blood - Blood Gram Stain - Final 08/29/18 12:50 Blood - Blood Aerobic Blood Culture - Final Escherichia Coli 08/29/18 12:50 Blood - Blood Gram Stain - Final 08/29/18 12:50 Blood - Blood Anaerobic Blood Culture - Final Escherichia Coli 08/29/18 12:50 Blood - Blood Gram Stain - Final 08/29/18 12:30 Clean Catch Urine [place] Count - Final >100,000 CFU/ML. 08/29/18 12:30 Clean Catch Urine - Final Escherichia Coli Assessment/ Plan: Nephrology. Feeling better today. Case discussed with the . CPS stable without CP or SOB. No acute events overnight. Vitals, medications, blood work and imaging reviewed in the chart. General: In no apparent distress, Oriented x3, Cooperative HEENT: Atraumatic Neck: Supple Respiratory: Clear to auscultation bilaterally Cardiovascular: Regular rate/rhythm, Edema Gastrointestinal: Soft and benign, Non-distended, No guarding Musculoskeletal: No clubbing, No contractures Integumentary: No rashes, No cyanosis Neurological: Normal speech Blood work reviewed in the chart. BUN 126/ Cr 15.8 Imagings Data: EXAM DESCRIPTION: CT - Stone Protocol - 08/29/2018 12:02 pm CLINICAL HISTORY: left flank pain, hematuria, peritoneal dialysis COMPARISON: July 2015 TECHNIQUE: Axial 5 mm thick images were obtained without oral or IV contrast. The [id number] spans the entirety of the system including uppermost abdomen and lung bases. All CT scans are performed using dose optimization technique as appropriate and may include automated exposure control or mA/KV adjustment according to patient size. FINDINGS: No hydronephrosis present. No obstructing or nonobstructing calculi. Bilateral perinephric stranding is present new from the 2016 comparison. This is slightly worse on the left. No suspicious renal masses. Isodense masses and pyelonephritis are not excluded on a stone protocol CT scan. Urinary bladder is mostly contracted. No gross abnormality seen. No significant adrenal finding. Imaged portions of the liver, spleen and pancreas show no suspicious findings on non-contrast imaging. Small cyst posterior subcapsular right lobe has not changed since 2016. No gallbladder or biliary tree abnormality seen. Gallstones can be occult. No dilated bowel loops or bowel wall thickening. No acute GI process identifiable. No hernia, mass or bulky lymphadenopathy noted. No free air or pneumatosis. Trace amount of peritoneal free fluid is present not unexpected. Patient is a peritoneal dialysis patient. No acute bone finding. Vascular calcifications are present. IMPRESSION: No hydronephrosis or obstructing calculus present. Left greater than right perinephric stranding is present. This is new from 2016. Pyelonephritis and isodense masses are not excluded. No acute finding. Trace amount of free fluid is present not unexpected given the peritoneal dialysis status. Isodense masses and pyelonephritis are not excluded on stone protocol technique. Conclusions/Impression: A/ ESRD on HD. Proteinuria. HTN with CKD/ CHF. Diastolic CHF, chronic. Anemia in CKD. DM II with CKD. EMI/ Secondary HyperPTH. Hypocalcemia. HyperPO4. E.coli Cystitis/ Pyelonephritis. P/ Continue current POC and Medications. Continue home PD prescription. Agree with abx. Titrate insulin as needed. Agree with diuresis. No NSAIDs. AM labs. Daily weight. Follow up in the PD clinic.
--- NOTE | 2018-09-02 06:13 | DS ---
Date of Discharge: 09/01/2018 [place]: Dr. Lozano with Nephrology. Admitting Diagnoses: 1.Pyelonephritis. 2.Flank pain. 3.End-stage renal disease, on peritoneal dialysis. 4.Essential hypertension. 5.Diabetes mellitus type 2, insulin requiring, with chronic kidney disease. 6.Morbid obesity. Discharge Diagnoses: 1.Acute pyelonephritis, secondary to Escherichia coli. 2.Bacteremia secondary to Escherichia coli. 3.Diabetes mellitus type 2 with chronic kidney disease, on insulin. 4.Essential hypertension, stable. 5.End-stage renal disease, on peritoneal dialysis, stable. 6.Flank pain, secondary to pyelonephritis, resolved. 7.Morbid obesity. 8.Hyperphosphatemia. 9.Moderate protein-calorie malnutrition, albumin is 2.5. 10.Microcytic anemia, likely due to anemia of chronic kidney disease. Hemoglobin and hematocrit are stable. Hospital Course: The patient is a 73-year-old male with end-stage kidney disease, on peritoneal dial ysis, who was found to have pyelonephritis. The patient came in with flank pain and fever. CT scan showed bilateral perinephric stranding. The patient was started on IV antibiotics. Cultures were ob tained. His white count was elevated at 20,000 and procalcitonin was 8.35. The patient's white bloo d cell count trended down and was down to 12. The patient remained afebrile. His urine culture show ed E. coli which was pansensitive, essentially other than to ampicillin and aztreonam. The patient's blood cultures were also positive for E. coli and the patient responded well to Rocephin. The patie nt continued his peritoneal dialysis. He was not septic. Peritoneal dialysis machinery was brought in by the and was continued. Dr. Lozano with Nephrology was also consulted. The patient was t hen cleared for discharge as his pain resolved, he was no longer febrile, was able to ambulate withou t difficulty, and he was cleared from Nephrology standpoint. The patient was then sent home in a sta ble condition. Activity: As tolerated. Diet: Renal. Followup: Follow up with primary care physician in 2-3 days. Follow up with bundle shaker, Dr. Yoni kidd, in 2 weeks. Return to ER for worsening condition. Medications: As per medication reconciliation list. Physical Examination: General: Awake, alert, oriented x3, not in any acute distress. Morbidly obese male. CV: S1, S2. No murmurs. Respiratory: Moving air well bilaterally. Abdomen: Abdomen is soft, nontender, nondistended. Positive bowel sounds. Extremities: No clubbing or cyanosis. The patient does have peripheral edema. Neurologic: Nonfocal. Total time spent discharging the patient was 33 minutes. /MARCI Voice ID: [id number] Report ID: [id number]
== END 2018-09-01 16:07 | disposition home or self-care (01) | DRG 690 ==
LOC: ER 11:08 → ERHOLD 13:37 → 4TH 14:04
PROVIDERS: ADMIT Family Medicine; ATTEND Family Medicine
DX: N10 Acute pyelonephritis (principal); R78.81 Bacteremia; Z68.41 Body mass index [BMI] 40.0-44.9, adult; E44.0 Moderate protein-calorie malnutrition; I13.2 Hypertensive heart and chronic kidney disease with heart failure and with stage 5 chronic kidney disease, or end stage renal disease; I50.32 Chronic diastolic (congestive) heart failure; B96.20 Unspecified Escherichia coli [E. coli] as the cause of diseases classified elsewhere; E66.01 Morbid (severe) obesity due to excess calories; D63.1 Anemia in chronic kidney disease; E83.39 Other disorders of phosphorus metabolism; E11.22 Type 2 diabetes mellitus with diabetic chronic kidney disease; N18.6 End stage renal disease; Z99.2 Dependence on renal dialysis
CPT/HCPCS: 36415; 74176; 76377; 80048; 80053; 81001; 81003; 81015; 82962; 83036; 83605; 83735; 83880; 84100; 84145; 84550; 85025; 87040; 87077; 87086; 87088; 87186; 87205; 96374; 99285; J0696; J0885; Q4081

== ENCOUNTER 2022-05-16 17:19 | Inpatient (IN) | payer OTHER ==
--- OUTSIDE RECORDS SUMMARY | 2022-05-16 17:27 | XMS REPORT | Continuity of Care Document ---
:1945 Author Organization [facility] t Address [address] [place] [address] Care Team Providers Name Role Phone Irving Smith MD Primary Care Physician Camron KERR, Moi Aguiar Attending Clinician Sharron Platt MD Attending Clinician Irving Smith MD Attending Clinician DB VERAS Attending Clinician Unavailable [facility] [place] Attending Clinician Unavailable Fabio Valentin Attending Clinician FABIO VALENTIN Attending Clinician Unavailable Provider, Unknown Attending Clinician Unavailable Bety KERR, Matt Varma Attending Clinician Leno KERR, Hector Ho Attending Clinician Brooklyn KERR, Yancy Kiser Attending Clinician Junito Garcia CRNA Attending Clinician [phone] Jose KERR, Chandan Ellis Attending Clinician [phone] Nash CAMARA-C, Alanna Randhawa Attending Clinician [phone] Maureen Mccloud MA Attending Clinician Unavailable Nu Fraga MA Attending Clinician Unavailable MARILEE SAMPSON Attending Clinician Unavailable MD MARILEE SAMPSON Attending Clinician Unavailable MD AIDE TILLMAN Attending Clinician Unavailable AIDE TILLMAN Attending Clinician Unavailable MIRIAM MCGUIRE Attending Clinician Unavailable MD IRVING SMITH Attending Clinician Unavailable SUKI Attending Clinician Unavailable IRVING SMITH Admitting Clinician Unavailable Kade Negrete Admitting Clinician KADE NEGRETE Admitting Clinician Unavailable MARILEE SAMPSON Admitting Clinician Unavailable MD MARILEE SAMPSON Admitting Clinician Unavailable MD AIDE TILLMAN Admitting Clinician Unavailable AIDE TILLMAN Admitting Clinician Unavailable MD IRVING SMITH Admitting Clinician Unavailable SUKI Admitting Clinician Unavailable MATT SEVERINO Admitting Clinician Unavailable Payers Payer Name Policy Type Policy Number Effective Date Expiration Date S ource MEDICARE [place]: [id number] 2006 [employer] 00:00:00 Problems Condition Condition Condition Status Onset Resolution Last Treating Co mments Source Name Details Category Date Date Treatment Clinician Date Generalize Generalize Disease Active 2021-06 M ethodi d d 0-28 st abdominal abdominal 00:00: [facility]osp [facility]ita pain pain 00 l SBO SMALL SBO SMALL Diagnosis Active 2021-062022-03-20 Memoria BOWEL BOWEL 0-07 11:19:00 l OBSTRUCTIO OBSTRUCTIO 00:00: He rubio Villatoro 00 ASPIRATION ASPIRATION P P Active 03/07/2022 [facility] SBO (small SBO (small Disease Active M ethodi bowel bowel 7-03 st obstructio obstructio 00:00: Ho dennista n) n) 00 l Hyperlipid Hyperlipid Disease Active M ethodi emia emia -20 st 00:00: Hospita 00 l Peritoneal Peritoneal Disease Active M ethodi dialysis dialysis 20 st finding finding 00:00: Hospita 00 l 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 00:00: Hospit a 00 l Chronic Chronic Disease Active Methodi kidney kidney 4-20 st disease-mi disease-mi 00:00: Ho spita neral and neral and 00 l bone bone disorder disorder Peritoniti Peritoniti Disease Active M ethodi s s 4-20 st associated associated 00:00: Ho spita with with 00 l peritoneal peritoneal dialysis dialysis End stage End stage Disease Active Met [facility]odi renal renal 420 st failure on failure on 00:00: Ho spita dialysis dialysis 00 l ESRD (end ESRD (end Disease Active Overview: Methodi stage stage 4-[address] renal renal 00:00: g of this Hospita disease) disease) 00 note l might be different from the original. 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 Met hodi chronic chronic 4-12 st kidney kidney 00:00: Hospita disease disease 00 l Dependence Dependence Disease Active M ethodi on renal on renal 4-12 st dialysis dialysis 00:00: Hospit a 00 l Secondary Secondary Disease Active Met hodi hyperparat hyperparat 4-12 st hyroidism hyroidism 00:00: Hosp anita 00 l End stage End stage Disease Active Met hodi renal renal 4-12 st disease disease 00:00: Hospita 00 l Dialysis-a Dialysis-a Disease Active M ethodi ssociated ssociated 3-08 st peritoniti peritoniti 00:00: Ho spita s s 00 l Acute Acute Disease Active Methodi abdominal abdominal 3-06 st pain pain 00:00: Hospita 00 l Acute Acute Disease Active Methodi perforated perforated 07-20 gastric gastric 00:00: Hospita ulcer with ulcer with 00 l hemorrhage hemorrhage ESRD on ESRD on Disease Active 2018-06 Methodi peritoneal peritoneal 2- dialysis dialysis 00:00: Hospit a 00 l Hyperkalem Hyperkalem Disease Active 2018-06 M ethodi ia ia 07-21 00:00: Hospita 00 l Hypertensi Hypertensi Disease Active 2018-06 M ethodi ve urgency ve urgency 07-21 00:00: Hospita 00 l Hypoxemia Hypoxemia Disease Active 2018-06 Met hodi 07-21 00:00: Hospita 00 l Hypertensi Hypertensi Disease Active 2018-06 M ethodi on on 07-21 00:00: Hospita 00 l Chronic Chronic Disease Active Methodi kidney kidney 3 disease disease 00:00: Hospita (CKD), (CKD), 00 l stage V 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 00:00: Hospit a 00 l Dependence Dependenc Problem Active 2022-03-10 Memoria on e on 10:10:54 l hemodialys hemodialys He rmann is due to is due to end stage end stage renal renal disease disease (finding) (finding) Active Problem 03/10/2022 [facility] Diabetic Diabetic Problem Active 2022-03-10 Memoria on diet on diet 10:10:54 l only only [place] (finding) (finding) Active Problem 03/10/2022 [facility] Pneumonia Pneumonia Problem Active 2022-03-10 Memoria (disorder) (disorder) 10:10:54 l Active [place] Problem 03/10/2022 [facility] Allergies, Adverse Reactions, Alerts This patient has no known allergies or adverse reactions. Family History Family Member Diagnosis Comments Start Date Stop Date Source Natural father No Known Problems Met [facility] Natural mother Diabetes [facility] Social History Social Habit Start Date Stop Date Quantity Comments Source Alcohol intake 2022-03-29 2022-03-29 Current [facility] 00:00:00 00:00:00 non-drinker of Hospital alcohol (finding) Social History 2022-03-07 [facility]22[facility]03[facility] 21:47:11 Tobacco use and 2017-08-13 2017-08-13 Smokeless tobacco [facility] exposure 00:00:00 00:00:00 non-user Hospital Sex Ass[birth year] At [birth year] [facility] 00:00:00 00:00:00 Hospital Smoking Status Start Date Stop Date Source Never smoked tobacco [facility] Medications Ordered Filled Start Stop Current Ordering Indication Dosage Frequency Signature Comments Components Source Medication Medication Date Date Medication? Clinician (SIG) Name Name amLODIPine 2021-06 No 10mg QD Take 1 Meth vincent (NORVASC) 06-02 tablet (10 st 10 mg 00:00: 05:59 mg total) Hospit a tablet 00 :00 by mouth l daily for 30 days. amLODIPine 2021-06 No 5mg QD Take 5 mg M ethodi (NORVASC) 06-[address] 2.5 mg 15:12: 00:00 daily. Hospita tablet 12 :00 l atorvastati 2021-06 Yes 20mg QD Take 20 mg Methodi n (LIPITOR) 06-[address] 20 MG 15:12: nightly. Hospita tablet 09 Default OP l ins latanoprost 2021-06 Yes 1[drp] QD Administer Methodi (XALATAN) 06-[address] 0.005 % 15:12: both eyes Hospi ta ophthalmic 09 nightly. l solution insulin 2021-06 Yes Q.[id number] Inject Me thodi ASPART 06-[id number] (NovoLOG) 15:12: 3D skin 3 Hospit a 100 unit/mL 09 (three) l injection times a day before meals. 10 UNITS WITH MEALS AND 15 UNITS AT BEDTIME metoprolol 2021-06 Yes 25mg QD Take 25 mg M ethodi succinate 06-[address] XL 15:12: daily. Hospita (TOPROL-XL) 09 l 25 mg 24 hr tablet WILMA 2021-06 Yes 81mg Q2D Take 81 mg Method i ASPIRIN 06-[address] ORAL 15:12: every Hospita 09 other day. l ascorbic 2021-06 Yes 1{tbl} QD Take 1 Metho di acid 1-[address] (VITAMIN C 15:12: mouth Hospit a ORAL) 09 daily. l ferric 2021-06 Yes 3{tbl} Q.[id number] Take 3 M ethodi citrate 210 06-[id number] mg iron 15:12: 3D mouth 3 Hospita tablet 09 (three) l times a day with meals. 3 tabs with meals and 1 tab with snacks losartan 2021-06 Yes 50mg Q.5D Take 50 mg Met jermainei (COZAAR) 50 06-[address] MG tablet 15:12: (two) Hospita 09 times a l day. insulin 2021-06 Yes 45U QD Inject 45 Metho di GLARGINE - Units st (Lantus 15:12: under the Hospi ta Solostar 09 skin l U-100 nightly. Insulin) 100 unit/mL injection (pen) ferric 2021-06 Yes 1{tbl} Take 1 Methodi citrate 06-[address] (Auryxia) 15:12: mouth as Hosp anita 210 mg iron 09 needed l tablet (snacks). 3 tabs with meals and 2 tabs with snacks gabapentin 2021-06 Yes 300mg QD Take 300 Me thodi (NEURONTIN) - mg by st 300 mg 15:12: mouth Hospita capsule 09 nightly. l cholecalcif 2021-06 Yes Take by Met alfaro [place], [address] vitamin D3, 15:12: Hospit a (VITAMIN D3 09 l ORAL) lactulose 2021-06 Yes Q.[id number] Take by Methodi 10 gram/15 06-[id number] mL (15 mL) 15:12: 3D (three) Hosp anita solution 09 times a l day. nut.tx.impa 2021-06- No 240mL Q.5D Take 240 Methodi ired renal 06-01 12-[address] fxn,soy 00:00: 05:59 mouth 2 Hospit a ([employer] 00 :00 (two) l Renal 2 times a [place]) 0.09 day for 30 gram- 2 days. kcal/mL liquid Augmentin 2021-06 Yes 1 tab, PO, Me moria 500 mg oral 0-09 Q24H, X 7 l tablet 20:57: day, # 7 Blaze 00 tab, 0 Refill(s), Pharmacy: [facility] #[id number], 165.1, cm, 03/07/22 22:24:00 CDT, Height, 73.636, kg, 03/07/22 22:24:00 CDT, Weight Augmentin 2021-06 Yes 1 tab, PO, Me moria 500 mg oral 0-09 Q24H, X 7 l tablet 20:57: day, # 7 Blaze 00 tab, 0 Refill(s), Pharmacy: [facility] #[id number], 165.1, cm, 03/07/22 22:24:00 CDT, Height, 73.636, kg, 03/07/22 22:24:00 CDT, Weight Augmentin 2021-06 Yes 1 tab, PO, Me moria 500 mg oral 0-09 Q24H, X 7 l tablet 20:57: day, # 7 [place] 00 tab, 0 Refill(s), Pharmacy: [facility][id number], 165.1, cm, 03/07/22 22:24:00 CDT, Height, 73.636, kg, 03/07/22 22:24:00 CDT, Weight amLODIPine 2021-06 No Notes: Memor ia 0-09 (Same as: l 02:00: Norvasc) atorvastati 2021-06 No Notes: Santiago pravin n 0-09 (Same as: l 02:00: Lipitor) losartan 2021-06 No Notes: Memoria 0-09 (Same as: l 02:00: Cozaar) amLODIPine 2021-06 No Notes: Memor ia 0-09 (Same as: l 02:00: Norvasc) atorvastati 2021-06 No Notes: Santiago pravin n 0-09 (Same as: l 02:00: Lipitor) losartan 2021-06 No Notes: Memoria 0-09 (Same as: l 02:00: Cozaar) amLODIPine 2021-06 No Notes: Memor ia 0-09 (Same as: l 02:00: Norvasc) atorvastati 2021-06 No Notes: Santiago pravin n 0-09 (Same as: l 02:00: Lipitor) losartan 2021-06 No Notes: Memoria 0-09 (Same as: l 02:00: Cozaar) Dextrose 2021-06 No 12.5 gm, Memor ia 50% Syringe 0-08 25 mL, l (D50W) 22:13: Route: Blaze IVP, Drug Form: INJ, Dosing Weight 73.636, kg, PRN, PRN Blood Glucose Results, Start date: 03/08/22 17:13:00 CDT, Duration: 30 day, Stop date: 04/07/22 16:12:00 ENTRY TABLE OPERATOR, 0 glucagon 2021-06 No 1 mg, Memoria 0-08 Route: IM, l 22:13: Drug form: [place] 00 PDR/INJ, PRN, Dosing Weight 73.636, kg, PRN Blood Glucose Results, Start date: 03/08/22 17:13:00 CDT, Duration: 30 day, Stop date: 04/07/22 16:12:00 ENTRY TABLE OPERATOR, 0 insulin 2021-06 No Notes: Memoria lispro 0-08 (Same as: l 22:13: Humalog) Roll in palms of hands gently; Do not shake vigorously . WASTE: F/P - Black; E - Municipal Trash Bin Stable for 28 days at room temperatur e. Expires in days from ____Date Dextrose 2021-06 No 12.5 gm, Memor ia 50% Syringe 0-08 25 mL, l (D50W) 22:13: Route: IVP, Drug Form: INJ, Dosing Weight 73.636, kg, PRN, PRN Blood Glucose Results, Start date: 03/08/22 17:13:00 CDT, Duration: 30 day, Stop date: 04/07/22 16:12:00 ENTRY TABLE OPERATOR, 0 glucagon 2021-06 No 1 mg, Memoria 0-08 Route: IM, l 22:13: Drug form: Blaze 00 PDR/INJ, PRN, Dosing Weight 73.636, kg, PRN Blood Glucose Results, Start date: 03/08/22 17:13:00 CDT, Duration: 30 day, Stop date: 04/07/22 16:12:00 ENTRY TABLE OPERATOR, 0 insulin 2021-06 No Notes: Memoria lispro 0-08 (Same as: l 22:13: Humalog) Blaze 00 Roll in palms of hands gently; Do not shake vigorously . WASTE: F/P - Black; E - Municipal Trash Bin Stable for 28 days at room temperatur e. Expires in days from ____Date Dextrose 2021-06 No 12.5 gm, Memor ia 50% Syringe 0-08 25 mL, l (D50W) 22:13: Route: [place] 00 IVP, Drug Form: INJ, Dosing Weight 73.636, kg, PRN, PRN Blood Glucose Results, Start date: 03/08/22 17:13:00 CDT, Duration: 30 day, Stop date: 04/07/22 16:12:00 ENTRY TABLE OPERATOR, 0 glucagon 2021-06 No 1 mg, Memoria 0-08 Route: IM, l 22:13: Drug form: Blaze 00 PDR/INJ, PRN, Dosing Weight 73.636, kg, PRN Blood Glucose Results, Start date: 03/08/22 17:13:00 CDT, Duration: 30 day, Stop date: 04/07/22 16:12:00 ENTRY TABLE OPERATOR, 0 insulin 2021-06 No Notes: Memoria lispro 0-08 (Same as: l 22:13: Humalog) Blaze 00 Roll in palms of hands gently; Do not shake vigorously . WASTE: F/P - Black; E - Municipal Trash Bin Stable for 28 days at room temperatur e. Expires in days from ____Date Augmentin 2021-06 No 1 tab, PO, Me moria 500 mg oral 0-08 Q24H, X 7 l tablet 19:16: day, # 7 [place] 00 tab, 0 Refill(s), Pharmacy: [facility] #[id number], 165.1, cm, 03/07/22 22:24:00 CDT, Height, 73.636, kg, 03/07/22 22:24:00 CDT, Weight Augmentin 2021-06 No 1 tab, PO, Me moria 500 mg oral 0-08 Q24H, X 7 l tablet 19:16: day, # 7 Blaze 00 tab, 0 Refill(s), Pharmacy: [facility] #[id number], 165.1, cm, 03/07/22 22:24:00 CDT, Height, 73.636, kg, 03/07/22 22:24:00 CDT, Weight Augmentin 2021-06 No 1 tab, PO, Me moria 500 mg oral 0-08 Q24H, X 7 l tablet 19:16: day, # 7 Blaze 00 tab, 0 Refill(s), Pharmacy: [facility] #[id number], 165.1, cm, 03/07/22 22:24:00 CDT, Height, 73.636, kg, 03/07/22 22:24:00 CDT, Weight lactulose 2021-06 No Notes: Memori a 10 g/15 mL 0-08 (Same l oral syrup 14:11: as:Chronul H ermann 00 ac) lactulose 2021-06 No Notes: Memori a 10 g/15 mL 0-08 (Same l oral syrup 14:11: as:Chronul H ermann 00 ac) lactulose 2021-06 No Notes: Memori a 10 g/15 mL 0-08 (Same l oral syrup 14:11: as:Chronul H ermann 00 ac) Protonix 2021-06 No Notes: Memoria 0-07 Tablet l 23:13: should not Blaze 00 be chewed or crushed. (Same as: Protonix) Protonix 2021-06 No Notes: Memoria 0-07 Tablet l 23:13: should not Blaze 00 be chewed or crushed. (Same as: Protonix) Protonix 2021-06 No Notes: Memoria 0-07 Tablet l 23:13: should not Blaze 00 be chewed or crushed. (Same as: Protonix) atorvastati 2021-06 Yes 80 mg = 1 M emoria n 80 mg 0-07 tab, PO, l oral tablet 22:34: Bedtime, He rmann 00 taken at night 1999, # 30 tab, 0 Refill(s) atorvastati 2021-06 Yes 80 mg = 1 M emoria n 80 mg 0-07 tab, PO, l oral tablet 22:34: Bedtime, He rmann 00 taken at night 1999, # 30 tab, 0 Refill(s) atorvastati 2021-06 Yes 80 mg = 1 M emoria n 80 mg 0-07 tab, PO, l oral tablet 22:34: Bedtime, He rmann 00 taken at night 1999, # 30 tab, 0 Refill(s) lactulose 2021-06 Yes 10 gm = 15 Me moria 10 g/15 mL 0-07 mL, PO, l oral syrup 22:32: Daily, 10 He rmann 00 mL as needed for constipati on, 0 Refill(s) lactulose 2021-06 Yes 10 gm = 15 Me moria 10 g/15 mL 0-07 mL, PO, l oral syrup 22:32: Daily, 10 He rmann 00 mL as needed for constipati on, 0 Refill(s) lactulose 2021-06 Yes 10 gm = 15 Me moria 10 g/15 mL 0-07 mL, PO, l oral syrup 22:32: Daily, 10 He rmann 00 mL as needed for constipati on, 0 Refill(s) amLODIPine 2021-06 No PO, Daily, M emoria 0-07 0 l 22:30: Refill(s) Blaze 00 amLODIPine 2021-06 No PO, Daily, M emoria 0-07 0 l 22:30: Refill(s) Blaze 00 amLODIPine 2021-06 No PO, Daily, M emoria 0-07 0 l 22:30: Refill(s) [place] 00 Zosyn + 2021-06 No Notes: Memoria Sodium 0-07 (Same as: l Chloride 22:00: Zosyn) Blaze 0.9% IV 100 00 Dosing mL based on Piperacill in component MEDICATION WASTE Product Size: 3375 mg Product Wasted: ___ mg Zosyn + 2021-06 No Notes: Memoria Sodium 0-07 (Same as: l Chloride 22:00: Zosyn) [place] 0.9% IV 100 00 Dosing mL based on Piperacill in component MEDICATION WASTE Product Size: 3375 mg Product Wasted: ___ mg Zosyn + 2021-06 No Notes: Memoria Sodium 0-07 (Same as: l Chloride 22:00: Zosyn) Blaze 0.9% IV 100 00 Dosing mL based on Piperacill in component MEDICATION WASTE Product Size: 3375 mg Product Wasted: ___ mg Dextrose 2021-06 No 25 mL, Memoria 50% Syringe 0-07 Route: l (D50W) 21:46: IVP, kg, [place] 00 PRN, PRN Blood Glucose Results, Start date: 03/07/22 16:46:00 CDT, Duration: 30 day, Stop date: 04/06/22 15:45:00 ENTRY TABLE OPERATOR glucagon 2021-06 No 1 mg, Memoria 0-07 Route: IM, l 21:46: PRN, kg, [place] 00 PRN Blood Glucose Results, Start date: 03/07/22 16:46:00 CDT, Duration: 30 day, Stop date: 04/06/22 15:45:00 ENTRY TABLE OPERATOR insulin 2021-06 No Notes: Memoria lispro 0-07 (Same as: l 21:46: Humalog) [place] 00 Roll in palms of hands gently; Do not shake vigorously . WASTE: F/P - Black; E - Municipal Trash Bin Stable for 28 days at room temperatur e. Expires in days from ____Date Dextrose 2021-06 No 25 mL, Memoria 50% Syringe 0-07 Route: l (D50W) 21:46: IVP, kg, Blaze 00 PRN, PRN Blood Glucose Results, Start date: 03/07/22 16:46:00 CDT, Duration: 30 day, Stop date: 04/06/22 15:45:00 ENTRY TABLE OPERATOR glucagon 2021-06 No 1 mg, Memoria 0-07 Route: IM, l 21:46: PRN, kg, [place] 00 PRN Blood Glucose Results, Start date: 03/07/22 16:46:00 CDT, Duration: 30 day, Stop date: 04/06/22 15:45:00 ENTRY TABLE OPERATOR insulin 2021-06 No Notes: Memoria lispro 0-07 (Same as: l 21:46: Humalog) [place] 00 Roll in palms of hands gently; Do not shake vigorously . WASTE: F/P - Black; E - Municipal Trash Bin Stable for 28 days at room temperatur e. Expires in days from ____Date Dextrose 2021-06 No 25 mL, Memoria 50% Syringe 0-07 Route: l (D50W) 21:46: IVP, kg, Blaze 00 PRN, PRN Blood Glucose Results, Start date: 03/07/22 16:46:00 CDT, Duration: 30 day, Stop date: 04/06/22 15:45:00 ENTRY TABLE OPERATOR glucagon 2021-06 No 1 mg, Memoria 0-07 Route: IM, l 21:46: PRN, kg, Blaze 00 PRN Blood Glucose Results, Start date: 03/07/22 16:46:00 CDT, Duration: 30 day, Stop date: 04/06/22 15:45:00 ENTRY TABLE OPERATOR insulin 2021-06 No Notes: Memoria lispro 0-07 (Same as: l 21:46: Humalog) Blaze 00 Roll in palms of hands gently; Do not shake vigorously . WASTE: F/P - Black; E - Municipal Trash Bin Stable for 28 days at room temperatur e. Expires in days from ____Date Lactated 2021-06 No 1,000 mL, Santiago pravin Ringers IV 0-07 Rate: 60 l 1000 mL 20:31: ml/hr, Blaze 00 Infuse over: 16.7 hr, Route: IV, Total Volume: 1,000, Priority: STAT, Start date: 03/07/22 15:31:00 CDT, Duration: 30 day, Stop date: 04/06/22 15:30:00 ENTRY TABLE OPERATOR Lactated 2021-06 No 1,000 mL, Santiago pravin Ringers IV 0-07 Rate: 60 l 1000 mL 20:31: ml/hr, [place] 00 Infuse over: 16.7 hr, Route: IV, Total Volume: 1,000, Priority: STAT, Start date: 03/07/22 15:31:00 CDT, Duration: 30 day, Stop date: 04/06/22 15:30:00 ENTRY TABLE OPERATOR Lactated 2021- No 1,000 mL, Santiago pravin Ringers IV 0-07 Rate: 60 l 1000 mL 20:31: ml/hr, Infuse over: 16.7 hr, Route: IV, Total Volume: 1,000, Priority: STAT, Start date: 03/07/22 15:31:00 CDT, Duration: 30 day, Stop date: 04/06/22 15:30:00 ENTRY TABLE OPERATOR bisacodyl 2021-06 No 10 mg, Memori a 0-07 Route: NM, l 20:26: Daily, kg, PRN Constipati on, Start date: 03/07/22 15:26:00 CDT, Duration: 30 day, Stop date: 04/06/22 15:25:00 ENTRY TABLE OPERATOR bisacodyl 2021-06 No 10 mg, Memori a 0-07 Route: NM, l 20:26: Daily, kg, PRN Constipati on, Start date: 03/07/22 15:26:00 CDT, Duration: 30 day, Stop date: 04/06/22 15:25:00 ENTRY TABLE OPERATOR bisacodyl 2021- No 10 mg, Memori a 0-07 Route: NM, l 20:26: Daily, kg, [place] 00 PRN Constipati on, Start date: 03/07/22 15:26:00 CDT, Duration: 30 day, Stop date: 04/06/22 15:25:00 ENTRY TABLE OPERATOR Dextrose 2021-06 No 12.5 gm, Memor ia 50% Syringe 0-07 25 mL, l (D50W) 19:41: Route: IVP, Drug Form: INJ, kg, PRN, PRN Blood Glucose Results, Start date: 03/07/22 14:41:00 CDT, Duration: 30 day, Stop date: 04/06/22 13:40:00 ENTRY TABLE OPERATOR, 0 glucagon 2021-06 No 1 mg, Memoria 0-07 Route: IM, l 19:41: Drug form: PDR/INJ, PRN, kg, PRN Blood Glucose Results, Start date: 03/07/22 14:41:00 CDT, Duration: 30 day, Stop date: 04/06/22 13:40:00 ENTRY TABLE OPERATOR, 0 melatonin 2021-06 No Notes: Memori a 0-07 (Same as: l 19:41: Melatonin) Blaze acetaminoph 2021-06 No Notes: Do M emoria en 0-07 not exceed l 19:41: 4 gm/day. Blaze 00 (Same as: Tylenol) Dextrose 2021-06 No 12.5 gm, Memor ia 50% Syringe 0-07 25 mL, l (D50W) 19:41: Route: Blaze 00 IVP, Drug Form: INJ, kg, PRN, PRN Blood Glucose Results, Start date: 03/07/22 14:41:00 CDT, Duration: 30 day, Stop date: 04/06/22 13:40:00 ENTRY TABLE OPERATOR, 0 glucagon 2021-06 No 1 mg, Memoria 0-07 Route: IM, l 19:41: Drug form: Blaze 00 PDR/INJ, PRN, kg, PRN Blood Glucose Results, Start date: 03/07/22 14:41:00 CDT, Duration: 30 day, Stop date: 04/06/22 13:40:00 ENTRY TABLE OPERATOR, 0 melatonin 2021-06 No Notes: Memori a 0-07 (Same as: l 19:41: Melatonin) [place] 00 acetaminoph 2021-06 No Notes: Do M emoria en 0-07 not exceed l 19:41: 4 gm/day. [place] 00 (Same as: Tylenol) Dextrose 2021-06 No 12.5 gm, Memor ia 50% Syringe 0-07 25 mL, l (D50W) 19:41: Route: Blaze 00 IVP, Drug Form: INJ, kg, PRN, PRN Blood Glucose Results, Start date: 03/07/22 14:41:00 CDT, Duration: 30 day, Stop date: 04/06/22 13:40:00 ENTRY TABLE OPERATOR, 0 glucagon 2021-06 No 1 mg, Memoria 0-07 Route: IM, l 19:41: Drug form: [place] 00 PDR/INJ, PRN, kg, PRN Blood Glucose Results, Start date: 03/07/22 14:41:00 CDT, Duration: 30 day, Stop date: 04/06/22 13:40:00 ENTRY TABLE OPERATOR, 0 melatonin 2021-06 No Notes: Memori a 007 (Same as: l 19:41: Melatonin) acetaminoph 2021-06 No Notes: Do M emoria en 0-07 not exceed l 19:41: 4 gm/day. (Same as: Tylenol) losartan 50 2021-06 Yes 50 mg = 1 M emoria mg oral 0-07 tab, PO, l tablet 01:00: Daily, at Naveed n 00 night ..around 20:00, # 90 tab, 0 Refill(s) amLODIPine 2021-06 Yes 10 mg, PO, M emoria 0-07 Daily, l 01:00: amlodipine besylate taken at night 1999, 0 Refill(s) losartan 50 2021-06 Yes 50 mg = 1 M emoria mg oral 0-07 tab, PO, l tablet 01:00: Daily, at Naveed n 00 night ..around 20:00, # 90 tab, 0 Refill(s) amLODIPine 2021-06 Yes 10 mg, PO, M emoria 0-07 Daily, l 01:00: amlodipine besylate taken at night 1999, 0 Refill(s) losartan 50 2021-06 Yes 50 mg = 1 M emoria mg oral 0-07 tab, PO, l tablet 01:00: Daily, at Naveed n 00 night ..around 20:00, # 90 tab, 0 Refill(s) amLODIPine 2021-06 Yes 10 mg, PO, M emoria 0-07 Daily, l 01:00: amlodipine besylate taken at night 1999, 0 Refill(s) clonIDINE 2021-0 2021- No .3mg Q7D Place 1 Meth vincent (CATAPRES-T 12-15-16 patch (0.3 s t TS) 0.3 00:00: 04:59 mg total) [facility] mg/24 hr 00 :00 on the l skin once a week for 60 days. clonIDINE 2021-0 202- No .3mg Q7D Place 1 Meth vincent (CATAPRES-T 7-17 -16 patch (0.3 s t TS) 0.3 00:00: 04:59 mg total) [facility]osp [facility]ita mg/24 hr 00 :00 on the l skin once a week for 60 days. clonIDINE 0 2022- No .3mg Q7D Place 1 Meth vincent (CATAPRES-T 12-15 09-16 patch (0.3 s t TS) 0.3 00:00: 04:59 mg total) [facility]osp [facility]ita mg/24 hr 00 :00 on the l skin once a week for 60 days. atorvastati 0 Yes 20mg QD Take 20 mg Methodi n (LIPITOR) [address] 20 MG 20:25: nightly. Hospita tablet 34 Default OP l ins latanoprost Yes 1[drp] QD Administer Methodi (XALATAN) 12-[address] 0.005 % 20:25: both eyes Hospi ta ophthalmic 34 daily. l solution insulin 0 Yes Q.[id number] Inject Me thodi ASPART 12-[id number] (NovoLOG) 20:25: 3D skin 3 Hospit a 100 unit/mL 34 (three) l injection times a day before meals. 10 UNITS WITH MEALS AND 15 UNITS AT BEDTIME metoprolol Yes 25mg QD Take 25 mg M ethodi succinate [address] XL 20:25: daily. Hospita (TOPROL-XL) 34 l 25 mg 24 hr tablet WILMA 0 Yes 81mg Q2D Take 81 mg Method i ASPIRIN [address] ORAL 20:25: every Hospita 34 other day. l ascorbic 0 Yes 1{tbl} QD Take 1 Metho di acid -[address] (VITAMIN C 20:25: mouth Hospit a ORAL) 34 daily. l ferric 2021-0 Yes 3{tbl} Q.[id number] Take 3 M ethodi citrate 210 -[id number] mg iron 20:25: 3D mouth 3 Hospita tablet 34 (three) l times a day with meals. 3 tabs with meals and 1 tab with snacks amLODIPine 0 Yes 5mg QD Take 5 mg [facility] (NORVASC) [address] 2.5 mg 20:25: daily. Hospita tablet 34 l losartan 2022-0 Yes 50mg Q.5D Take 50 mg Met hodi (COZAAR) 50 7-[address] MG tablet 20:25: (two) Hospita 34 times a l day. insulin Yes 45U QD Inject 45 Metho di GLARGINE 7-[address] (Lantus 20:25: under the Hospi ta Solostar 34 skin l U-100 nightly. Insulin) 100 unit/mL injection (pen) ferric Yes 1{tbl} Take 1 [facility] citrate 7-[address] (Auryxia) 20:25: mouth as Hosp anita 210 mg iron 34 needed l tablet (snacks). 3 tabs with meals and 2 tabs with snacks gabapentin Yes 300mg QD Take 300 [facility] (NEURONTIN) 7-[address] 300 mg 20:25: mouth Hospita capsule 34 nightly. l cholecalcif Yes Take by Met h[facility] [place], 7-[address] vitamin D3, 20:25: Hospit a (VITAMIN D3 34 l ORAL) lactulose 0 Yes [id number] Take by Method[facility] 10 gram/15 7-[id number] mL (15 mL) 20:25: 3D (three) Hosp anita solution 34 times a l day. atorvastati Yes 20mg QD Take 20 mg Methodi n (LIPITOR) 7-[address] 20 MG 20:25: nightly. Hospita tablet 34 Default OP l ins latanoprost Yes 1[drp] QD Administer Methodi (XALATAN) 7-[address] 0.005 % 20:25: both eyes Hospi ta ophthalmic 34 daily. l solution insulin 0 Yes [id number] Inject Me [facility] ASPART 7-[id number] (NovoLOG) 20:25: 3D skin 3 Hospit a 100 unit/mL 34 (three) l injection times a day before meals. 10 UNITS WITH MEALS AND 15 UNITS AT BEDTIME metoprolol Yes 25mg QD Take 25 mg M ethodi succinate 7-[address] XL 20:25: daily. Hospita (TOPROL-XL) 34 l 25 mg 24 hr tablet WILMA 0 Yes 81mg Q2D Take 81 mg Method i ASPIRIN 7-[address] ORAL 20:25: every Hospita 34 other day. l ascorbic 2021-0 Yes 1{tbl} QD Take 1 Metho di acid 7-[address] (VITAMIN C 20:25: mouth Hospit a ORAL) 34 daily. l ferric 202-0 Yes 3{tbl} [id number] Take 3 M ethodi citrate 210 7-[id number] mg iron 20:25: 3D mouth 3 Hospita tablet 34 (three) l times a day with meals. 3 tabs with meals and 1 tab with snacks amLODIPine 0 Yes 5mg QD Take 5 mg [facility] (NORVASC) 7-[address] 2.5 mg 20:25: daily. Hospita tablet 34 l losartan 0 Yes 50mg Q.5D Take 50 mg Met [facility] (COZAAR) 50 7-[address] MG tablet 20:25: (two) Hospita 34 times a l day. insulin 0 Yes 45U QD Inject 45 Metho di GLARGINE 7-[address] (Lantus 20:25: under the Hospi ta Solostar 34 skin l U-100 nightly. Insulin) 100 unit/mL injection (pen) ferric 0 Yes 1{tbl} Take 1 [facility] citrate 7-[address] (Auryxia) 20:25: mouth as [facility]osp [facility]ita 210 mg iron 34 needed l tablet (snacks). 3 tabs with meals and 2 tabs with snacks gabapentin 2021-0 Yes 300mg QD Take 300 [facility] (NEURONTIN) 7-[address] 300 mg 20:25: mouth Hospita capsule 34 nightly. l cholecalcif 0 Yes Take by Met [facility] [place], 7-[address] vitamin D3, 20:25: Hospit a (VITAMIN D3 34 l ORAL) lactulose 2021-0 Yes [id number] Take by Method[facility] 10 gram/15 7-[id number] mL (15 mL) 20:25: 3D (three) Hosp anita solution 34 times a l day. pantoprazol 2021-0 2022- No 40mg QD Take 40 mg Methodi e 12-[address] (PROTONIX) 11:43: 00:00 daily. Hosp anita 40 MG EC 58 :00 l tablet pantoprazol 2021-0 2021- No 40mg QD Take 40 mg Methodi e 12-[address] (PROTONIX) 11:43: 00:00 daily. [facility]osp anita 40 MG EC 58 :00 l tablet pantoprazol 2021-0 2- No 40mg QD Take 40 mg Methodi e 12-[address] (PROTONIX) 11:43: 00:00 daily. Hosp anita 40 MG EC 58 :00 l tablet pantoprazol 2021-0 2- No 40mg QD Take 1 Met hodi e 12-03-05 tablet (40 st (PROTONIX) 00:00: 04:59 mg total) H ospita 40 MG EC 00 :00 by mouth l tablet daily for 30 days. ondansetron 2021-0 2021- No 4mg Q8H Take 1 Met hodi (Zofran) 4 -10 06-05 tablet (4 st MG tablet 00:00: 04:59 mg total) Ho spita 00 :00 by mouth l every 8 (eight) hours as needed for nausea or vomiting for up to 30 days. pantoprazol 2021-0 2021- No 40mg QD Take 1 Met hodi e 12-03-05 tablet (40 st (PROTONIX) 00:00: 04:59 mg total) H ospita 40 MG EC 00 :00 by mouth l tablet daily for 30 days. ondansetron 2021-0 2021- No 4mg Q8H Take 1 Met hodi (Zofran) 4 - 08-05 tablet (4 st MG tablet 00:00: 04:59 mg total) Ho spita 00 :00 by mouth l every 8 (eight) hours as needed for nausea or vomiting for up to 30 days. pantoprazol 2-0 2- No 40mg QD Take 1 Met hodi e 12-03 08-05 tablet (40 st (PROTONIX) 00:00: 04:59 mg total) H ospita 40 MG EC 00 :00 by mouth l tablet daily for 30 days. ondansetron 2022-0 2022- No 4mg Q8H Take 1 Met [facility]odi (Zofran) 4 7-05 08-05 tablet (4 st MG tablet 00:00: 04:59 mg total) Ho spita 00 :00 by mouth l every 8 (eight) hours as needed for nausea or vomiting for up to 30 days. lidocaine-p 2021- No Apply Meth vincent rilocaine 02-[address] (EMLA) 00:00: 04:59 as needed Hospi ta 2.5-2.5 % 00 :00 for mild l cream pain. Apply to area 30-45 minutes prior to dialysis. lidocaine-p 2021- No Apply Meth vincent rilocaine 02-[address] (EMLA) 00:00: 04:59 as needed Hospi ta 2.5-2.5 % 00 :00 for mild l cream pain. Apply to area 30-45 minutes prior to dialysis. lidocaine-p 2021- No Apply Meth vincent rilocaine 02-[address] (EMLA) 00:00: 04:59 as needed Hospi ta 2.5-2.5 % 00 :00 for mild l cream pain. Apply to area 30-45 minutes prior to dialysis. traMADoL Yes [id number] 50mg Q8H Take 1 Method i (Ultram) 50 8-12 tablet (50 st mg tablet 00:00: mg total) Hos melissa 00 by mouth l every 8 (eight) hours as needed for moderate pain for up to 3 days .acute pain. traMADoL Yes [id number] 50mg Q8H Take 1 Method i (Ultram) 50 8-12 tablet (50 st mg tablet 00:00: mg total) Hos melissa 00 by mouth l every 8 (eight) hours as needed for moderate pain for up to 3 days .acute pain. traMADoL Yes [id number] 50mg Q8H Take 1 Method i (Ultram) 50 8-12 tablet (50 st mg tablet 00:00: mg total) Hos melissa 00 by mouth l every 8 (eight) hours as needed for moderate pain for up to 3 days .acute pain. Immunizations Ordered Immunization Filled Immunization Date Status Commen ts Source Name Name [facility] COVID-19 MRNA 2020-08-25 Completed Meth odist VACCINATION 00:00:00 [facility] PFIZER COVID-19 MRNA 2020-08-25 Completed Meth odist VACCINATION 00:00:00 [facility] PFIZER COVID-19 MRNA 2020-08-25 Completed Meth odist VACCINATION 00:00:00 [facility] PFIZER COVID-19 MRNA 2020-08-04 Completed Meth odist VACCINATION 00:00:00 [facility] PFIZER COVID-19 MRNA 2020-08-04 Completed Meth odist VACCINATION 00:00:00 [facility] PFIZER COVID-19 MRNA 2020-08-04 Completed Meth odist VACCINATION 00:00:00 Hospital Vital Signs Vital Name Observation Time Observation Value Comments Source Systolic blood 2022-04-01 16:28:31 175 mm[Hg] [facility] pressure Diastolic blood 2022-04-01 16:28:31 84 mm[Hg] [facility] pressure Heart rate 2022-04-01 16:28:31 66 /min [facility] Body temperature 2022-04-01 16:28:31 36.06 Yen [facility] Respiratory rate 2022-04-01 16:28:31 16 /min [facility] Oxygen saturation in 2022-04-01 16:28:31 98 /min [facility] Arterial blood by Pulse oximetry Body weight 2022-04-01 10:00:00 70.761 kg [facility] BMI 2022-04-01 10:00:00 25.96 kg/m2 [facility] Body height 2022-03-28 16:20:00 165.1 cm [facility] Heart Rate 2022-03-09 16:59:33 [facility] Respitory Rate 2022-03-09 16:59:33 [facility] Systolic (mm Hg) 2022-03-09 16:59:27 [facility] [place] Diastolic (mm Hg) 2022-03-09 16:59:27 [facility] Heart Rate 2022-03-09 16:59:27 [facility] [place] Temperature Oral (F) 2022-03-09 16:59:02 97.5 F [facility] Heart Rate 2022-03-09 12:26:54 [facility] Respitory Rate 2022-03-09 12:26:54 Memori [facility] [place] Systolic (mm Hg) 2022-03-09 12:26:47 [facility] Diastolic (mm Hg) 2022-03-09 12:26:47 [facility] Temperature Oral (F) 2022-03-09 12:26:26 97.9 F [facility] Temperature Oral (F) 2022-03-09 08:54:00 98.0 F [facility] [place] Respitory Rate 2022-03-09 08:54:00 Memori [facility] [place] Systolic (mm Hg) 2022-03-09 08:54:00 Santiago [facility] Diastolic (mm Hg) 2022-03-09 08:54:00 Mem [facility] Height 2022-03-08 03:24:00 165.1 cm [facility] [place] Weight 2022-03-08 03:24:00 [facility] BMI Calculated 2022-03-08 03:24:00 [facility] [place] Body height 2022-02-13 18:33:00 165.1 cm [facility] Body weight 2022-02-13 18:33:00 81.194 kg [facility] BMI 2022-02-13 18:33:00 29.79 kg/m2 [facility] Systolic blood 2022-02-13 18:31:15 206 mm[Hg] [facility] pressure Diastolic blood 2022-02-13 18:31:15 97 mm[Hg] [facility] pressure Heart rate 2022-02-13 18:31:15 83 /min [facility] Body temperature 2022-02-13 18:31:15 36.39 Yen [facility] Respiratory rate 2022-02-13 18:31:15 16 /min [facility] Oxygen saturation in 2022-02-13 18:31:15 96 /min [facility] Arterial blood by Pulse oximetry Procedures Procedure Date / Time Performing Clinician Source Performed POC GLUCOSE 2022-04-01 16:28:00 [facility] POC GLUCOSE 2022-04-01 12:35:00 [facility] COMPREHENSIVE METABOLIC 2022-04-01 10:47:00 [facility] PANEL CBC WITH PLATELET AND 2022-04-01 10:47[facility]00 [facility]FFER[facility] MAGNESIUM LEVEL 2022-04-01 10:47:00 [facility] ESTIMATED GFR 2022-04-01 10:47:00 [facility] POC GLUCOSE 2022-04-01 01:29:00 [facility] POC GLUCOSE 2022-03-31 21:12:[address] [facility] POC GLUCOSE 2022-03-31 18:15:00 Luis [facility] POC GLUCOSE 2022-03-31 12:45:[address] [facility] POC GLUCOSE 2022-03-31 01:41:[address] [facility] POC GLUCOSE 2022-03-30 20:48:[address] [facility] HEMODIALYSIS 2022-03-30 17:02:28 [facility] POC GLUCOSE 2022-03-30 16:21:00 Luis [facility] POC GLUCOSE 2022-03-30 12:49:[address] [facility] BASIC METABOLIC PANEL 2022-03-30 10:29:00 [facility] FERRITIN LEVEL 2022-03-30 10:29:00 [facility] spital TOTAL IRON BINDING 2022-03-30 10:29:00 [facility] CAPACITY RETICULOCYTE COUNT 2022-03-30 10:29:00 [facility] ESTIMATED GFR 2022-03-30 10:29:00 [facility] spital POC GLUCOSE 2022-03-30 01:33:[address] [facility] POC GLUCOSE 2022-03-29 22:03:[address] [facility] POC GLUCOSE 2022-03-29 18:27:[address] [facility] HEPATITIS B SURFACE 2022-03-29 14:15:00 Chris [facility] ANTIGEN HEPATITIS B SURFACE AB, 2022-03-29 14:15:00 Chris, [facility] QUANTITATIVE POC GLUCOSE 2022-03-29 12:16:[address] [facility] CBC WITH PLATELET AND 2022-03-29 09:51:00 Elian Mehta [facility] DIFFERENTIAL BASIC METABOLIC PANEL 2022-03-29 09:51:00 Elian Mehta [facility] ESTIMATED GFR 2022-03-29 09:51:00 Elian Mehta [facility] POC GLUCOSE 2022-03-29 03:35:[address] [facility] LACTIC ACID LEVEL, SEPSIS 2022-03-28 22:50:00 [facility] - NOW AND REPEAT 2X EVERY 3 HOURS HEMODIALYSIS 2022-03-28 21:58:34 Elian Mehta [facility] LACTIC ACID LEVEL, SEPSIS 2022-03-28 20:43:00 [facility] - NOW AND REPEAT 2X EVERY 3 HOURS COVID-19 QUALITATIVE 2022-03-28 20:33:00 [facility] RT-PCR CBC WITH PLATELET AND 2022-03-28 17:30:00 [facility] DIFFERENTIAL COMPREHENSIVE METABOLIC 2022-03-28 17:30:00 [facility] PANEL LACTIC ACID LEVEL, SEPSIS 2022-03-28 17:30:00 [facility] - NOW AND REPEAT 2X EVERY 3 HOURS ESTIMATED GFR 2022-03-28 17:30:[address] [facility] [address] ABDOMEN PELVIS WO 2022-03-28 17:11:31 [facility] CONTRAST POC GLUCOSE 2021-12-12 22:04:[address] [facility] POC GLUCOSE 2021-12-12 16:17:[address] [facility] POC GLUCOSE 2021-12-12 16:14:[address] [facility] POC GLUCOSE 2021-12-12 12:32:00 [facility] PHOSPHORUS LEVEL 2021-12-12 10:03:00 [facility] MAGNESIUM LEVEL 2021-12-12 10:03:00 [facility] COMPREHENSIVE METABOLIC 2021-12-12 10:03:00 [facility] PANEL HC COMPLETE BLD COUNT 2021-12-12 10:03:00 [facility] W/AUTO DIFF ESTIMATED GFR 2021-12-12 10:03:00 [facility] POC GLUCOSE 2021-12-12 00:11:00 [facility] 2021-12-11 22:43:00 [facility] POC [facility]SE 2021-12-11 19:29:00 [facility] HEMODIALYSIS 2021-12-11 14:05:58 [facility] POC GLUCOSE 2021-12-11 12:12:00 [facility] PHOSPHORUS LEVEL 2021-12-11 10:50:00 [facility] MAGNESIUM LEVEL 2021-12-11 10:50:00 [facility] COMPREHENSIVE METABOLIC 2021-12-11 10:50:00 [facility] PANEL HC COMPLETE BLD COUNT 2021-12-11 10:50:00 [facility] W/AUTO DIFF ESTIMATED GFR 2021-12-11 10:50:00 [facility] POC GLUCOSE 2021-12-11 09:34:00 [facility] POC [facility]SE 2021-12-11 05:03:00 [facility] POC GLUCOSE 2021-12-11 01:08:00 [facility] POC GLUCOSE 2021-12-10 21:37:00 [facility] FL SMALL BOWEL 2021-12-10 17:44:42 Chip Ramesh ospital HEPATIC FUNCTION PANEL 2021-12-10 14:56:00 Chip Ramesh Chandan [facility] POC GLUCOSE 2021-12-10 12:52:00 Luis [facility] HC COMPLETE BLD COUNT 2021-12-10 09:33:00 [facility]FF COMPREHENSIVE METABOLIC 2021-12-10 09:33:00 [facility] PHOSPHORUS LEVEL 2021-12-10 09:33:00 [facility] MAGNESI[facility]EL 2021-12-10 09:33:00 [facility] ESTIMATED GFR 2021-12-10 09:33:00 [facility] 2021-12-10 09:33:[address] [facility] POC GLUCOSE 2021-12-10 00:54:[address] [facility] POC GLUCOSE 2021-12-09 22:36:[address] [facility] BASIC METABOLIC PANEL 2021-12-09 17:36:00 [facility] 2021-12-09 17:36:[address] [facility] MAGNESIUM LEVEL 2021-12-09 17:36:[address] [facility] ESTIMATED GFR 2021-12-09 17:36:[address] [facility] POC GLUCOSE 2021-12-09 17:12:[address] [facility] HEMODIALYSIS 2021-12-09 14:27:40 [facility]SE 2021-12-09 13:07:[address] [facility] POC GLUCOSE 2021-12-09 02:05:00 [facility] POC GLUCOSE 2021-12-08 21:51:[address] [facility] POC GLUCOSE 2021-12-08 16:32:[address] [facility] POC GLUCOSE 2021-12-08 12:58:[address] [facility] POC GLUCOSE 2021-12-08 01:49:[address] [facility] POC GLUCOSE 2021-12-07 21:23:[address] [facility] POTASSIUM LEVEL 2021-12-07 18:56:00 Roman Villalpando [facility] POC GLUCOSE 2021-12-07 17:11:[address] [facility] POC GLUCOSE 2021-12-07 12:17:[address] [facility] POC GLUCOSE 2021-12-07 09:52:[address] [facility] MAGNESIUM LEVEL 2021-12-07 09:35:00 Chip Ramesh ospital HC COMPLETE BLD COUNT 2021-12-07 09:35:00 Chip Ramesh [facility] W/AUTO DIFF COMPREHENSIVE METABOLIC 2021-12-07 09:35:00 Chip Ramesh [facility] PANEL ESTIMATED GFR 2021-12-07 09:35:[address] [facility] POC GLUCOSE 2021-12-07 05:30:[address] [facility] POC GLUCOSE 2021-12-07 03:11:[address] [facility] POC GLUCOSE 2021-12-07 00:27:[address] [facility] HEMODIALYSIS 2021-12-06 20:01:42 Ilia Perez spital HEPATITIS B SURFACE 2021-12-06 19:51:00 Ilia Perez [facility] ANTIGEN POC GLUCOSE 2021-12-06 16:56:[address] [facility] POC GLUCOSE 2021-12-06 13:10:[address] [facility] MAGNESIUM LEVEL 2021-12-06 10:29:00 Chip Ramesh ospital HC COMPLETE BLD COUNT 2021-12-06 10:29:00 Chip Ramesh [facility] W/AUTO DIFF COMPREHENSIVE METABOLIC 2021-12-06 10:29:00 Chip Ramesh [facility] PANEL ESTIMATED GFR 2021-12-06 10:29:00 Luis [facility] POC GLUCOSE 2021-12-06 10:11:00 Luis [facility] POC GLUCOSE 2021-12-06 02:04:00 Luis [facility] POC GLUCOSE 2021-12-05 22:14:00 Luis [facility] POC GLUCOSE 2021-12-05 19:00:00 Luis [facility] ARTERIAL LINE 2021-12-05 18:45:31 [facility] NM AN ELECTIVE 2021-12-05 16:42:00 Junito Garcia [facility] ENDOTRACHEAL AIRWAY LYSIS, ADHESIONS, FOR 2021-12-05 16:25:00 [facility] SMALL BOWEL OBSTRUCTION POC GLUCOSE 2021-12-05 12:12:00 Luis [facility] XR CHEST 1 VW PORTABLE 2021-12-05 11:51:38 Luis [facility] POC GLUCOSE 2021-12-05 11:41:00 Luis [facility] MAGNESIUM LEVEL 2021-12-05 08:14:[address] [facility] ospital HC COMPLETE BLD COUNT 2021-12-05 08:14:00 Detbarbara [facility] W/AUTO DIFF COMPREHENSIVE METABOLIC 2021-12-05 08:14:00 Detbarbara [facility] PANEL PHOSPHORUS LEVEL 2021-12-05 08:14:00 [facility] PARTIAL THROMBOPLASTIN 2021-12-05 08:14:00 Detbarbara [facility] TIME (PTT) PROTHROMBIN TIME WITH INR 2021-12-05 08:14:00 Gadiel [facility] TYPE AND SCREEN 2021-12-05 08:14:00 DetChip jimenez [facility]spital ESTIMATED GFR 2021-12-05 08:14:00 Luis [facility] POC GLUCOSE 2021-12-05 07:03:00 Luis [facility] POC GLUCOSE 2021-12-05 05:00:00 [facility] ECG 12-LEAD 2021-12-05 03:23:09 [facility] POC GLUCOSE 2021-12-05 02:12:00 [facility] POC GLUCOSE 2021-12-04 23:09:[address] [facility] LACTIC ACID LEVEL, SEPSIS 2021-12-04 23:05:00 Breanna Pierre [facility] - NOW AND REPEAT 2X EVERY Virant 3 HOURS POC GLUCOSE 2021-12-04 22:38:[address] [facility] POC GLUCOSE 2021-12-04 22:09:00 [facility] LACTIC ACID LEVEL, SEPSIS 2021-12-04 19:56:00 Breanna Pierre se [facility] - NOW AND REPEAT 2X EVERY Virant 3 HOURS POC GLUCOSE 2021-12-04 19:24:[address] [facility] POC GLUCOSE 2021-12-04 18:37:00 [facility] ECG 12-LEAD 2021-12-04 16:19:15 Breanna Pierre [facility] Virant LACTIC ACID LEVEL 2021-12-04 15:56:00 [facility] COMPREHENSIVE METABOLIC 2021-12-04 15:56:00 [facility] PANEL LIPASE LEVEL 2021-12-04 15:56:00 [facility] ESTIMATED GFR 2021-12-04 15:56:00 [facility] HC COMPLETE BLD COUNT 2021-12-04 15:17:00 Breanna Pierre [facility] W/AUTO DIFF Virant CT ABDOMEN PELVIS WO 2021-12-04 14:55:52 Breanna Pierre [facility] CONTRAST Virant POC GLUCOSE 2021-12-03 12:09:00 [facility] METABOLIC 2021-12-03 09:26:00 Marianna De Paz [facility] PANEL HC COMPLETE BLD COUNT 2021-12-03 09:26:00 [facility] W/AUTO DIFF ESTIMATED GFR 2021-12-03 09:26:00 [facility] POC GLUCOSE 2021-12-03 01:54:00 [facility] POC [facility]SE 2021-12-02 20:01:00 [facility] POC GLUCOSE 2021-12-02 19:21:00 [facility] POC GLUCOSE 2021-12-02 18:57:00 [facility] HEPATITIS B SURFACE 2021-12-02 15:19:00 [facility] ANTIGEN HEPATITIS B SURFACE AB, 2021-12-02 15:19:00 [facility] QUANTITATIVE HEPATITIS B SURFACE 2021-12-02 15:19:00 [facility] ANTIBODY CT ABDOMEN PELVIS WO 2021-12-02 13:18:04 Matt Severino [facility] CONTRAST POC GLUCOSE 2021-12-02 12:12:[address] [facility] COMPREHENSIVE METABOLIC 2021-12-02 09:12:00 [facility] PANEL HC COMPLETE BLD COUNT 2021-12-02 09:12:00 [facility] W/AUTO DIFF ESTIMATED GFR 2021-12-02 09:12:00 [facility] POC GLUCOSE 2021-12-02 09:10:00 [facility] POC GLUCOSE 2021-12-02 04:50:00 [facility] LACTIC ACID LEVEL, SEPSIS 2021-12-02 03:36:00 [facility] - NOW AND REPEAT 2X EVERY 3 HOURS POC GLUCOSE 2021-12-02 02:46:00 [facility] LACTIC ACID LEVEL, SEPSIS 2021-12-01 23:31:00 [facility] - [facility] REPEAT 2X EVERY 3 HOURS COVID-19 ANTI-SPIKE IGG 2021-12-01 22:12:00 [facility]-19 SEROLOGY PATIENT 2021-12-01 22:12:00 [facility] SURVEILLANCE POC GLUCOSE 2021-12-01 20:59:00 Luis, [facility] COVID-19 ANTI-SPIKE IGG 2021-12-01 18:56:[address] [facility] ANTIBODY TITER COVID-19 SEROLOGY PATIENT 2021-12-01 18:56:00 [facility] POC GLUCOSE 2021-12-01 17:56:00 [facility] COVID-19 QUALITATIVE 2021-12-01 16:01:00 [facility] Jadiel Ellis HEMODIALYSIS 2021-12-01 15:52:[address] [facility] [address] [facility] [address] [facility]EL[facility] WO 2021-12-01 13:24:10 [facility] Jadiel Ellis LACTIC ACID LEVEL, SEPSIS 2021-12-01 13:07:00 Zandra [facility] - NOW AND REPEAT 2X EVERY 3 HOURS HC COMPLETE BLD COUNT 2021-12-01 13:07:00 [facility] W/AUTO DIFF Jadiel Ellis COMPREHENSIVE METABOLIC 2021-12-01 13:07:00 [facility] Jadiel Ellis MAGNESIUM LEVEL 2021-12-01 13:07:00 Jose [facility] spital Jadiel Ellis TROPONIN T 2021-12-01 13:07:00 Chandan Garcia [facility] spital Jadiel Ellis B NATRIURETIC PEPTIDE 2021-12-01 13:07:00 [facility] Jadiel Ellis PROTHROMBIN TIME WITH INR 2021-12-01 13:07:00 [facility] Jadiel Ellis PARTIAL THROMBOPLASTIN 2021-12-01 13:07:00 [facility] TIME (PTT) Sangeezelda Jolorenzo CREATINE KINASE, TOTAL 2021-12-01 13:07:00 Jose [facility] ([facility]) Sangeeth Joywin LIPASE LEVEL 2021-12-01 13:07:00 Chandan Garcia spital Sangeeth Joywin ESTIMATED GFR 2021-12-01 13:07:00 Chandan Garcia spital Sangeezelda Jolorenzo XR CHEST 1 VW PORTABLE 2021-12-01 13:04:10 Jose [facility] Sangeeth Joywin ECG 12-LEAD 2021-12-01 12:59:45 Chandan Garcia spital Sangeeth Joywin ECG ED PRELIMINARY 2021-12-01 12:38:30 Jose [facility] INTERPRETATION Sangjustin Ellis Plan of Care Planned Activity Planned Date Details Comments Source Future Scheduled 2022-05-15 65+ [facility]OC[facility] [facility] Test 15:08:19 VACCINE (1 - PCV) [code = 65+ PNEUMOCOCCAL VACCINE (1 - PCV)] Future Scheduled 2022-05-15 DIABETES: RETINAL EYE [facility] Test 15:08:19 EXAM [code = DIABETES: RETINAL EYE EXAM] Future Scheduled 2022-05-15 DIABETIC FOOT EXAM [facility] Test 15:08:19 [code = DIABETIC FOOT EXAM] Future Scheduled 2022-05-15 Hepatitis C screening [facility] Test 15:08:19 (procedure) [code = 026287188] Future Scheduled 2022-05-15 SHINGLES VACCINES (1 Met [facility] Test 15:08:19 of 2) [code = SHINGLES VACCINES (1 of 2)] Future Scheduled 2022-05-15 COLONOSCOPY SCREENING [facility] Test 15:08:19 [code = COLONOSCOPY SCREENING] Future Scheduled 2022-05-15 COVID-19 VACCINE (3 - Me [facility] Test 15:08:19 Booster for Pfizer series) [code = COVID-19 VACCINE (3 - Booster for Pfizer series)] Future Scheduled 2022-05-[address] [facility] Test 15:08:19 [code = INFLUENZA VACCINE] Future Scheduled 2022-03-03 HEPATITIS B VACCINES [facility] Test 09:53:43 (1 of 3 - 3-dose series) [code = HEPATITIS B VACCINES (1 of 3 - 3-dose series)] Future Scheduled 2022-03-03 65+ P[facility]UMOCOCCAL [facility] Test 09:53:43 VACCINE (1 - PCV) [code = 65+ PNEUMOCOCCAL VACCINE (1 - PCV)] Future Scheduled 2022-03-03 DIABETES: RETINAL EYE Me [facility] Test 09:53:43 EXAM [code = DIABETES: RETINAL EYE EXAM] Future Scheduled 2022-03-[address] [facility] Test 09:53:43 [code = DIABETIC FOOT EXAM] Future Scheduled 2022-03-03 Hepatitis C screening [facility] Test 09:53:43 (procedure) [code = 622287758] Future Scheduled 2022-03-03 SHINGLES VACCINES (1 Met [facility] Test 09:53:43 of 2) [code = SHINGLES VACCINES (1 of 2)] Future Scheduled 2022-03-03 COLONOSCOPY SCREENING [facility] Test 09:53:43 [code = COLONOSCOPY SCREENING] Future Scheduled 2022-03-03 COVID-19 VACCINE (3 - Me [facility] Test 09:53:43 Booster for Pfizer series) [code = COVID-19 VACCINE (3 - Booster for Pfizer series)] Future Scheduled 2022-03-[address] [facility] Test 09:53:43 [code = INFLUENZA VACCINE] Future Scheduled 2022-03-03 HEPATITIS B VACCINES Met [facility] Test 09:53:43 (1 of 3 - 3-dose series) [code = HEPATITIS B VACCINES (1 of 3 - 3-dose series)] Future Scheduled 2022-03-03 65+ [facility] VACCINE (1 - PCV) [code = 65+ PNEUMOCOCCAL VACCINE (1 - PCV)] Future Scheduled 2022-03-03 DIABETES: RETINAL EYE Me [facility] Test 09:53:43 EXAM [code = DIABETES: RETINAL EYE EXAM] Future Scheduled 2022-03-[address] [facility] Test 09:53:43 [code = DIABETIC FOOT EXAM] Future Scheduled 2022-03-03 Hepatitis C screening [facility] Test 09:53:43 (procedure) [code = 943556396] Future Scheduled 2022-03-03 SHINGLES VACCINES (1 [facility] Test 09:53:43 of 2) [code = SHINGLES VACCINES (1 of 2)] Future Scheduled 2022-03-03 COLONOSCOPY SCREENING [facility] Test 09:53:43 [code = COLONOSCOPY SCREENING] Future Scheduled 2022-03-03 COVID-19 VACCINE (3 - Me [facility] Test 09:53:43 Booster for Pfizer series) [code = COVID-19 VACCINE (3 - Booster for Pfizer series)] Future Scheduled 2022-03-03 INFLUENZA VACCINE Method [facility] Hospital Test 09:53:43 [code = INFLUENZA VACCINE] Encounters Start End Encounter Admission Attending Care Care Encounter Source Date/Time Date/Time Type Type Clinicians Facility Department ID 2022-03-28 2022-04-01 [facility] Moi Lyon.2.840.1 [id number] Methodi 11:30:00 15:12:00 Encounter Sharron Platt 95839.1.1 386 Irving Smith [facility] 3.430.2.7 Hospita .3.353053 l .8 2022-03-28 2022-04-01 Inpatient IRVING SMITH [facility] 064 [id number] [place] 00:00:00 00:00:00 386 Method i 2022-03-31 2022-03-31 Travel 1.2.840.1 1.2.941.271 9602 [id number] Methodi 00:00:00 00:00:00 83141.1.1 350.1.13.43 280 3.430.2.7 0.2.7.3.698 [facility] .3.827938 084.8 l .8 2022-03-31 2022-03-31 Inpatient AYAD, [facility] [id number] 66 [place] 00:00:00 00:00:00 MOHAMMED 428 Metho di 2022-03-29 2022-03-29 Outpatient MEHTA, [facility] [address]9340 [id number] [place] 00:00:00 00:00:[address] 2022-03-28 2022-03-28 Travel 1.2.840.1 1.2.914.087 0534 [id number] Methodi 00:00:00 00:00:[address] 3.430.2.7 0.2.7.3.698 Ho spita .3.393606 084.8 l .8 2022-03-07 2022-03-09 Inpatient [facility] [id number] [facility] 17:00:00 21:31:00 r [place] 80 l [place] Estef[place] nn 2022-03-07 2022-03-09 Inpatient [facility] [id number] [id number] [facility] 17:00:00 21:31:00 r [place] 80 l [place] nn 2022-03-07 2022-03-09 Outpatient CrystalFabio matta [facility] [id number] 12:00:00 16:31:00 [place] 80 2022-03-07 2022-03-09 Inpatient FABIO VALENTIN [facility] 2280 [facility] 12:00:00 16:31:00 2022-02-13 2022-02-13 Emergency [facility] [id number] [place] [address] 00:00:00 00:00:[address] 2022-02-13 2022-02-13 Documentat Provider, 1.2.840.1 [id number] 2 [id number] Methodi 00:00:00 00:00:00 ion Unknown 24180.1.[address] 3.430.2.7 Hospit a .3.780375 l .8 2022-02-13 2022-02-13 Documentat Provider, 1.2.840.1 [id number] 2 [id number] Methodi 00:00:00 00:00:00 ion Unknown 01250.1.[address] 3.430.2.7 Hospit a .3.304371 l .8 2021-12-19 2021-12-19 Office Oppermann, 1.2.840.1 [id number] 733 [id number] Methodi 14:00:00 14:34:48 Visit Matt Varma 75842.1.1 889 s t 3.430.2.7 Hospit a .3.501395 l .8 2021-12-19 2021-12-19 Office Opcamacho, 1.2.840.1 [id number] Methodi 14:00:00 14:34:48 Visit Matt Varma 18308.1.1 889 s t 3.430.2.7 Hospit a .3.528461 l .8 2021-12-19 2021-12-19 Travel 1.2.840.1 1.2.763.308 1711 [id number] Methodi 00:00:00 00:00:[address] 3.430.2.7 0.2.7.3.698 Ho spita .3.525316 084.8 l .8 2021-12-19 2021-12-19 Travel 1.2.840.1 1.2.965.404 2274 [id number] Methodi 00:00:00 00:00:[address] 3.430.2.7 0.2.7.3.698 Ho spita .3.915202 084.8 l .8 2021-12-04 2021-12-12 [facility] Hector Burr 1.2.840.1 [id number] Methodi 08:34:00 20:20:00 Encounter Irving Smith 33319.1.[address] 3.430.2.7 Hospit a .3.118693 l .8 2021-12-04 2021-12-12 [facility] Hector Burr 1.2.840.1 [id number] Methodi 08:34:00 20:20:00 Encounter Irving Smith 05743.1.[address] 3.430.2.7 Hospit a .3.452286 l .8 2021-12-05 2021-12-05 Anesthesia Yancy Barahona 1.2.840.1 10 [id number] Methodi 11:25:00 14:00:00 Event Junito Garcia 86569.1.[address] 3.430.2.7 Hospit a .3.547956 l .8 2021-12-05 2021-12-05 Anesthesia Yancy Barahona. 1.2.840.1 10 [id number] Methodi 11:25:00 14:00:00 Event Junito Garcia 56780.1.[address] 3.430.2.7 Hospit a .3.295511 l .8 2021-12-05 2021-12-05 Surgery [facility], 1.2.840.1 [id number] 589 [id number] Methodi 11:00:00 13:25:00 Matt Varma 97725.1.1 887 s t 3.430.2.7 Hospit a .3.522521 l .8 2021-12-05 2021-12-05 Surgery [facility], 1.2.840.1 [id number] 767 [id number] Methodi 11:00:00 13:25:00 Matt Varma 73125.1.1 887 s t 3.430.2.7 Hospit a .3.417103 l .8 2021-12-04 2021-12-04 Travel 1.2.840.1 1.2.815.636 0936 [id number] Methodi 00:00:00 00:00:[address] 3.430.2.7 0.2.7.3.698 Ho spita .3.993077 084.8 l .8 2021-12-04 2021-12-04 Travel 1.2.840.1 1.2.679.371 7096 [id number] Methodi 00:00:00 00:00:[address] 3.430.2.7 0.2.7.3.698 Ho spita .3.496379 084.8 l .8 2021-12-01 2021-12-03 [facility] Chandan Garcia in 1.2.840.1 [id number] Methodi 07:14:00 11:43:00 Encounter Irving Smith 45399.1.[address] 3.430.2.7 Hospit a .3.901989 l .8 2021-12-01 2021-12-03 [facility] Chandan Garcia in 1.2.840.1 [id number] Methodi 07:14:00 11:43:00 Encounter Irving Smith 21590.1.[address] 3.430.2.7 Hospit a .3.454654 l .8 2021-04-09 2021-04-09 Office Nash, 1.2.840.1 [id number] Methodi 10:00:00 11:58:48 Visit Alanna 89526.1.[address] [place] 3.430.2.7 Hosp anita .3.687947 l .8 2021-04-09 2021-04-09 Travel 1.2.840.1 1.2.597.337 9424 788414 Methodi 00:00:00 00:00:[address] 3.430.2.7 0.2.7.3.698 Ho spita .3.378026 084.8 l .8 2021-04-03 2021-04-03 Telephone Davis-Na 1.2.840.1 [id number] Methodi 00:00:00 00:00:00 mireya, 20391.1.[address] Maureen A 3.430.2.7 Hospit a .3.709059 l .8 2021-03-22 2021-03-22 Travel 1.2.840.1 1.2.216.065 3686 [id number] Methodi 00:00:00 00:00:[address] 3.430.2.7 0.2.7.3.698 Ho spita .3.478553 084.8 l .8 2021-03-22 2021-03-22 Telephone Nash, 1.2.840.1 [id number] 2100 [id number] Methodi 00:00:00 00:00:[address] [place] 3.430.2.7 Hosp anita .3.058471 l .8 2021-03-22 2021-03-22 Telephone Nash, 1.2.840.1 [id number] 2099 [id number] Methodi 00:00:00 00:00:[address] [place] 3.430.2.7 Hosp anita .3.399739 l .8 2021-03-21 2021-03-21 Telephone Flakito, 1.2.840.1 [id number] Methodi 00:00:00 00:00:[address] 3.430.2.7 Hospit a .3.845777 l .8 2021-02-26 2021-02-26 Outpatient [facility] [id number] [place] 00:00:00 00:00:[address] 2021-01-22 2021-01-22 Outpatient [facility] [id number] [place] 00:00:00 00:00:[address] 2021-01-10 2021-01-10 Outpatient ADRIÁN, [facility] [id number] 578 [place] 00:00:00 00:00:00 MARILEE [address] 2021-01-08 2021-01-08 Outpatient ADRIÁN [facility] [id number] [place] 00:00:00 00:00:00 MARILEE [address] 2020-12-29 2020-12-29 Outpatient PRIMO, [facility] [id number] 516 [place] 00:00:00 00:00:00 MAHPARA [address] 2020-12-28 2020-12-28 Outpatient [facility] [id number] 443 [place] 00:00:00 00:00:[address] 2020-12-28 2020-12-28 Outpatient ADRIÁN, [facility] [id number] 450 [place] 00:00:00 00:00:00 MARILEE [address] 2020-12-11 2020-12-11 Outpatient [facility] [id number] [place] 00:00:00 00:00:[address] 2020-11-20 2020-11-20 Outpatient ADRIÁN [facility] [id number] 844 [place] 00:00:00 00:00:00 MARILEE [address] 2020-11-20 2020-11-20 Outpatient [facility] [id number] 314 [place] 00:00:00 00:00:[address] 2020-11-08 2020-11-08 Outpatient ADRIÁN, [facility] [id number] 527 [place] 00:00:00 00:00:00 MARILEE [address] 2020-10-11 2020-10-11 Outpatient ADRIÁN, [facility] [id number] 365 [place] 00:00:00 00:00:00 MARILEE [address] 2020-09-18 2020-09-18 Outpatient ADRIÁN, [facility] 032 [id number] 496 [place] 00:00:00 00:00:00 MARILEE [address] 2020-09-17 2020-09-17 Outpatient ADRIÁN, [facility] [id number] 514 [place] 00:00:00 00:00:00 MARILEE [address] 2020-09-17 2020-09-17 Outpatient WOJCIECHOWS [facility] [id number] [place] 00:00:00 00:00:00 KI, 870 Method i MIRIAM 2020-09-12 2020-09-12 Outpatient ADRIÁN, [facility] [id number] 481 [place] 00:00:00 00:00:00 MARILEE [address] 2020-08-04 2020-08-08 Inpatient IRIVNG SMITH [facility] 012 [id number] [place] 00:00:00 00:00:[address] 2020-07-20 2020-07-23 Inpatient IRVING SMITH [facility] 064 2100 [id number] [place] 00:00:00 00:00:[address] 2020-05-17 2020-05-17 Outpatient IHDE_G MMG G [id number] 020 [place] 03:27:00 03:27:00 1217 Medical Group 2019-05-20 2019-05-23 Inpatient IRVING SMITH [facility] 012 [id number] [place] 00:00:00 00:00:[address] 2019-04-21 2019-04-21 Outpatient BETY [facility] 021 2100 [id number] [place] 00:00:00 00:00:00 MATT Jain [facility] Results Test Description Test Time Test Comments Results Result Comments Source POC glucose 2022-04-01 16:29:00 Test Item Value Reference Range Interpretation Comme nts POC glucose (test code = 80 mg/dL 99 Ope rator Name: Chaya Chung ID: [id number]) [id number] able: RN Notified Hindu AbgexfarPAHU-BtE-4 (COVID-19) RNA [Presence] in Respiratory specimen by BRYANT with probe [id number] 23:00:15 Test Item Value Reference Range Interpretation Comments SARS-CoV-2 (COVID-19) RNA Not detected [Presence] in Respiratory specimen by BRYANT with probe detection (test code = 91684-6) Whether patient is employed in a Unknown healthcare setting (test code = 44866-7) Whether the patient has symptoms Unknown related to condition of interest (test code = 81590-9) Whether the patient was Unknown hospitalized for condition of interest (test code = 64558-1) Whether the patient was admitted Unknown to intensive care unit (ICU) for condition of interest (test code = 87989-2) Whether patient resides in a Unknown congregate care setting (test code = 02229-8) status (test code = Unknown 34107-6) Date and time of symptom onset Unknown (test code = 79893-6) [facility] 08:25:00 Test Item Value Reference Range Interpretation Comments Monocytes # (test code 0.3 See_Comment [Aut omated message] The = Monocytes #) system which generated this result tra nsmitted reference range : <=0.8. The reference r jeff was not used to int erpret this result as normal/abnormal . [facility] Yatedo [id number] 08:25:00 Test Item Value Reference Range Interpretation Comments Glucose Lvl (test code = Glucose Lvl) 93 70-99 [facility] [id number] 08:25:00 Test Item Value Reference Range Interpretation Comments BUN (test code = BUN) 42 7-22 [facility] [id number] 08:25:00 Test Item Value Reference Range Interpretation Comments Creatinine Lvl (test code = Creatinine 9.08 0.50-1.40 Lvl) [place] 366252-10-08 08:25:00 Test Item Value Reference Range Interpretation Comments Sodium Lvl (test code = Sodium Lvl) 140 135-145 [place] 366252-10-08 08:25:00 Test Item Value Reference Range Interpretation Comments Potassium Lvl (test code = Potassium 4.5 3.5-5.1 Lvl) [place] 366252-10-08 08:25:00 Test Item Value Reference Range Interpretation Comments Chloride Lvl (test code = Chloride Lvl) 104 95-109 [place] [address]-10-08 08:25:00 Test Item Value Reference Range Interpretation Comments CO2 (test code = CO2) 29 24-32 [place] 366252-10-08 08:25:00 Test Item Value Reference Range Interpretation Comments Calcium Lvl (test code = Calcium Lvl) 8.9 8.5-10.5 [place] [address]-10-08 08:25:00 Test Item Value Reference Range Interpretation Comments Total Protein (test code = Total 6.1 6.4-8.4 Protein) [place] 366252-10-08 08:25:00 Test Item Value Reference Range Interpretation Comments Albumin Lvl (test code = Albumin Lvl) 2.7 3.5-5.0 [place] 366252-10-08 08:25:00 Test Item Value Reference Range Interpretation Comments ALT (test code = ALT) 11 See_Comment [Auto mated message] The system which ge nerated this result transmit fatoumata reference range : <=65. The reference range was not used to interpr et this result as edwin l/abnormal. [place] 366252-10-08 08:25:00 Test Item Value Reference Range Interpretation Comments AST (test code = AST) 13 See_Comment [Auto mated message] The system which ge nerated this result transmit fatoumata reference range : <=37. The reference range was not used to interpr et this result as edwin l/abnormal. [place] [address]-10-08 08:25:00 Test Item Value Reference Range Interpretation Comments Alk Phos (test code = Alk Phos) 57 39-136 [facility] [id number] 08:25:00 Test Item Value Reference Range Interpretation Comments Bili Total (test code = Bili Total) 0.5 0.2-1.3 [place] 366252-10-08 08:25:00 Test Item Value Reference Range Interpretation Comments AGAP (test code = AGAP) 11.5 10.0-20.0 [place] 366252-10-08 08:25:00 Test Item Value Reference Range Interpretation Comments B/C Ratio (test code = B/C Ratio) 5 1 6-25 [place] 366252-10-08 08:25:00 Test Item Value Reference Range Interpretation Comments Globulin (test code = Globulin) 3.4 2.7-4.2 [place] 366252-10-08 08:25:00 Test Item Value Reference Range Interpretation Comments A/G Ratio (test code = A/G Ratio) 0.8 1 0.7-1.6 [place] [address]-10-08 08:25:00 Test Item Value Reference Range Interpretation Comments eGFR (test code = eGFR) 6 [place] 887802-10-08 08:25:00 Test Item Value Reference Range Interpretation Comments WBC (test code = WBC) 6.4 3.7-10.4 [place] [address]-10-08 08:25:00 Test Item Value Reference Range Interpretation Comments RBC (test code = RBC) 4.06 4.70-6.10 [place] [address]-10-08 08:25:00 Test Item Value Reference Range Interpretation Comments Hgb (test code = Hgb) 10.7 14.0-18.0 [place] [address]-10-08 08:25:00 Test Item Value Reference Range Interpretation Comments Hct (test code = Hct) 33.4 42.0-54.0 [place] [address]-10-08 08:25:00 Test Item Value Reference Range Interpretation Comments MCV (test code = MCV) 82.2 80.0-94.0 [place] [address]-10-08 08:25:00 Test Item Value Reference Range Interpretation Comments MCH (test code = MCH) 26.4 pg 27.0-31.0 [place] [address]-10-08 08:25:00 Test Item Value Reference Range Interpretation Comments MCHC (test code = MCHC) 32.1 32.0-36.0 [place] [address]-10-08 08:25:00 Test Item Value Reference Range Interpretation Comments RDW (test code = RDW) 16.1 11.5-14.5 [place] [address]-10-08 08:25:00 Test Item Value Reference Range Interpretation Comments Platelet (test code = Platelet) 154 133-450 [place] 887802-10-08 08:25:00 Test Item Value Reference Range Interpretation Comments MPV (test code = MPV) 7.8 7.4-10.4 [place] [address]-10-08 08:25:00 Test Item Value Reference Range Interpretation Comments Segs (test code = Segs) 81.9 45.0-75.0 [place] [address]-10-08 08:25:00 Test Item Value Reference Range Interpretation Comments Lymphocytes (test code = Lymphocytes) 13.0 20.0-40.0 [place] [address]-10-08 08:25:00 Test Item Value Reference Range Interpretation Comments Monocytes (test code = Monocytes) 4.0 2.0-12.0 [place] [address]-10-08 08:25:00 Test Item Value Reference Range Interpretation Comments Eosinophils (test code = 0.4 See_Comment [A utomated message] The Eosinophils) system which ge nerated this result tra nsmitted reference range : <=4.0. The reference r jeff was not used to int erpret this result as normal/abnormal . [id number] 08:25:00 Test Item Value Reference Range Interpretation Comments Basophils (test code = 0.7 See_Comment [Aut omated message] The Basophils) system which ge nerated this result tra nsmitted reference range : <=1.0. The reference r jeff was not used to int erpret this result as normal/abnormal . [place] [address]-10-08 08:25:00 Test Item Value Reference Range Interpretation Comments Neutrophils # (test code = Neutrophils 5.2 1.5-8.1 #) [place] [address]-10-08 08:25:00 Test Item Value Reference Range Interpretation Comments Lymphocytes # (test code = Lymphocytes 0.8 1.0-5.5 #) [place] [address]-10-08 08:25:00 Test Item Value Reference Range Interpretation Comments Monocytes # (test code 0.3 See_Comment [Aut omated message] The = Monocytes #) system which generated this result tra nsmitted reference range : <=0.8. The reference r jeff was not used to int erpret this result as normal/abnormal . [facility] [id number] 08:25:00 Test Item Value Reference Range Interpretation Comments Glucose Lvl (test code = Glucose Lvl) 93 70-99 [facility] [id number] 08:25:00 Test Item Value Reference Range Interpretation Comments BUN (test code = BUN) 42 7-22 [facility] [id number] 08:25:00 Test Item Value Reference Range Interpretation Comments Creatinine Lvl (test code = Creatinine 9.08 0.50-1.40 Lvl) [place] 366252-10-08 08:25:00 Test Item Value Reference Range Interpretation Comments Sodium Lvl (test code = Sodium Lvl) 140 135-145 [facility] [id number] 08:25:00 Test Item Value Reference Range Interpretation Comments Potassium Lvl (test code = Potassium 4.5 3.5-5.1 Lvl) [facility] [id number] 08:25:00 Test Item Value Reference Range Interpretation Comments Chloride Lvl (test code = Chloride Lvl) 104 95-109 [place] 366252-10-08 08:25:00 Test Item Value Reference Range Interpretation Comments CO2 (test code = CO2) 29 24-32 [facility] [id number] 08:25:00 Test Item Value Reference Range Interpretation Comments Calcium Lvl (test code = Calcium Lvl) 8.9 8.5-10.5 [facility] [id number] 08:25:00 Test Item Value Reference Range Interpretation Comments Total Protein (test code = Total 6.1 6.4-8.4 Protein) [place] 366252-10-08 08:25:00 Test Item Value Reference Range Interpretation Comments Albumin Lvl (test code = Albumin Lvl) 2.7 3.5-5.0 [facility] [id number] 08:25:00 Test Item Value Reference Range Interpretation Comments ALT (test code = ALT) 11 See_Comment [Auto mated message] The system which ge nerated this result transmit fatoumata reference range : <=65. The reference range was not used to interpr et this result as edwin l/abnormal. [facility] [place] [id number] 08:25:00 Test Item Value Reference Range Interpretation Comments AST (test code = AST) 13 See_Comment [Auto mated message] The system which ge nerated this result transmit fatoumata reference range : <=37. The reference range was not used to interpr et this result as edwin l/abnormal. [facility] [id number] 08:25:00 Test Item Value Reference Range Interpretation Comments Alk Phos (test code = Alk Phos) 57 39-136 [facility] [place] [id number] 08:25:00 Test Item Value Reference Range Interpretation Comments Bili Total (test code = Bili Total) 0.5 0.2-1.3 [facility] [id number] 08:25:00 Test Item Value Reference Range Interpretation Comments AGAP (test code = AGAP) 11.5 10.0-20.0 [facility] [id number] 08:25:00 Test Item Value Reference Range Interpretation Comments B/C Ratio (test code = B/C Ratio) 5 1 6-25 [facility] [id number] 08:25:00 Test Item Value Reference Range Interpretation Comments Globulin (test code = Globulin) 3.4 2.7-4.2 [facility] Yatedo [id number] 08:25:00 Test Item Value Reference Range Interpretation Comments A/G Ratio (test code = A/G Ratio) 0.8 1 0.7-1.6 [facility] Yatedo [id number] 08:25:00 Test Item Value Reference Range Interpretation Comments eGFR (test code = eGFR) 6 [facility] AgejpowHOGLOELSMU0176-95-94 08:25:00 Test Item Value Reference Range Interpretation Comments WBC (test code = WBC) 6.4 3.7-10.4 [facility] CqybouzSIPMMAPJBA1595-35-93 08:25:00 Test Item Value Reference Range Interpretation Comments RBC (test code = RBC) 4.06 4.70-6.10 [facility] SuovnxjRQXUPDEFCN4813-67-10 08:25:00 Test Item Value Reference Range Interpretation Comments Hgb (test code = Hgb) 10.7 14.0-18.0 [place] 887802-10-08 08:25:00 Test Item Value Reference Range Interpretation Comments Hct (test code = Hct) 33.4 42.0-54.0 [facility]SkdlsliANMDGKHKNP5685-68-29 08:25:00 Test Item Value Reference Range Interpretation Comments MCV (test code = MCV) 82.2 80.0-94.0 [facility] CenterYjgargsMMXSDNPWBB0573-91-14 08:25:00 Test Item Value Reference Range Interpretation Comments MCH (test code = MCH) 26.4 pg 27.0-31.0 [facility] CenterMocqoicZDQCEVTXZK7942-60-58 08:25:00 Test Item Value Reference Range Interpretation Comments MCHC (test code = MCHC) 32.1 32.0-36.0 [facility] CenterHqpjcglIUUDWZYBTN0921-51-59 08:25:00 Test Item Value Reference Range Interpretation Comments RDW (test code = RDW) 16.1 11.5-14.5 [facility] CenterJqfdlmfQYGZXQUSOT7388-53-35 08:25:00 Test Item Value Reference Range Interpretation Comments Platelet (test code = Platelet) 154 133-450 [facility] CenterCfovetyOZDVRGYDPD1326-85-32 08:25:00 Test Item Value Reference Range Interpretation Comments MPV (test code = MPV) 7.8 7.4-10.4 [place] 887802-10-08 08:25:00 Test Item Value Reference Range Interpretation Comments Segs (test code = Segs) 81.9 45.0-75.0 [facility] CenterIsugpbqXBMQMQAFIU4934-44-65 08:25:00 Test Item Value Reference Range Interpretation Comments Lymphocytes (test code = Lymphocytes) 13.0 20.0-40.0 [facility] CenterZerhyajUIKSBRFZNX2608-51-58 08:25:00 Test Item Value Reference Range Interpretation Comments Monocytes (test code = Monocytes) 4.0 2.0-12.0 [facility] CenterVefpxksKVSRIBZZGT6604-66-63 08:25:00 Test Item Value Reference Range Interpretation Comments Eosinophils (test code = 0.4 See_Comment [A utomated message] The Eosinophils) system which ge nerated this result tra nsmitted reference range : <=4.0. The reference r jeff was not used to int erpret this result as normal/abnormal . [place] [address]-10-08 08:25:00 Test Item Value Reference Range Interpretation Comments Basophils (test code = 0.7 See_Comment [Aut omated message] The Basophils) system which ge nerated this result tra nsmitted reference range : <=1.0. The reference r jeff was not used to int erpret this result as normal/abnormal . [place] 887802-10-08 08:25:00 Test Item Value Reference Range Interpretation Comments Neutrophils # (test code = Neutrophils 5.2 1.5-8.1 #) [facility] CenterIwjlgsyYUWUFNUZIM6891-11-30 08:25:00 Test Item Value Reference Range Interpretation Comments Lymphocytes # (test code = Lymphocytes 0.8 1.0-5.5 #) [facility] CenterGwmymgrEIZLUYOYDS5067-51-36 08:25:00 Test Item Value Reference Range Interpretation Comments Monocytes # (test code 0.3 See_Comment [Aut omated message] The = Monocytes #) system which generated this result tra nsmitted reference range : <=0.8. The reference r jeff was not used to int erpret this result as normal/abnormal . [place] 366252-10-08 08:25:00 Test Item Value Reference Range Interpretation Comments Glucose Lvl (test code = Glucose Lvl) 93 70-99 [facility]2022-10-08 08:25:00 Test Item Value Reference Range Interpretation Comments BUN (test code = BUN) 42 7-22 [place] 366252-10-08 08:25:00 Test Item Value Reference Range Interpretation Comments Creatinine Lvl (test code = Creatinine 9.08 0.50-1.40 Lvl) [place] 366252-10-08 08:25:00 Test Item Value Reference Range Interpretation Comments Sodium Lvl (test code = Sodium Lvl) 140 135-145 [place] 366252-10-08 08:25:00 Test Item Value Reference Range Interpretation Comments Potassium Lvl (test code = Potassium 4.5 3.5-5.1 Lvl) [place] 366252-10-08 08:25:00 Test Item Value Reference Range Interpretation Comments Chloride Lvl (test code = Chloride Lvl) 104 95-109 [facility] [id number] 08:25:00 Test Item Value Reference Range Interpretation Comments CO2 (test code = CO2) 29 24-32 [place] 366252-10-08 08:25:00 Test Item Value Reference Range Interpretation Comments Calcium Lvl (test code = Calcium Lvl) 8.9 8.5-10.5 [place] 366252-10-08 08:25:00 Test Item Value Reference Range Interpretation Comments Total Protein (test code = Total 6.1 6.4-8.4 Protein) [place] 366252-10-08 08:25:00 Test Item Value Reference Range Interpretation Comments Albumin Lvl (test code = Albumin Lvl) 2.7 3.5-5.0 [facility] [id number] 08:25:00 Test Item Value Reference Range Interpretation Comments ALT (test code = ALT) 11 See_Comment [Auto mated message] The system which ge nerated this result transmit fatoumata reference range : <=65. The reference range was not used to interpr et this result as edwin l/abnormal. [facility] [id number] 08:25:00 Test Item Value Reference Range Interpretation Comments AST (test code = AST) 13 See_Comment [Auto mated message] The system which ge nerated this result transmit fatoumata reference range : <=37. The reference range was not used to interpr et this result as edwin l/abnormal. [place] 366252-10-08 08:25:00 Test Item Value Reference Range Interpretation Comments Alk Phos (test code = Alk Phos) 57 39-136 [facility] [id number] 08:25:00 Test Item Value Reference Range Interpretation Comments Bili Total (test code = Bili Total) 0.5 0.2-1.3 [facility] [id number] 08:25:00 Test Item Value Reference Range Interpretation Comments AGAP (test code = AGAP) 11.5 10.0-20.0 [facility] [id number] 08:25:00 Test Item Value Reference Range Interpretation Comments B/C Ratio (test code = B/C Ratio) 5 1 6-25 [facility] [id number] 08:25:00 Test Item Value Reference Range Interpretation Comments Globulin (test code = Globulin) 3.4 2.7-4.2 [facility] [id number] 08:25:00 Test Item Value Reference Range Interpretation Comments A/G Ratio (test code = A/G Ratio) 0.8 1 0.7-1.6 [facility] [id number] 08:25:00 Test Item Value Reference Range Interpretation Comments eGFR (test code = eGFR) 6 [facility] CenterGsmhfsyNFMCDKBVZW9399-61-26 08:25:00 Test Item Value Reference Range Interpretation Comments WBC (test code = WBC) 6.4 3.7-10.4 [facility] CenterMtnstfuWOZVAGRRTJ8534-76-57 08:25:00 Test Item Value Reference Range Interpretation Comments RBC (test code = RBC) 4.06 4.70-6.10 [facility] CenterPlandscOKGZSKVMBB9751-22-45 08:25:00 Test Item Value Reference Range Interpretation Comments Hgb (test code = Hgb) 10.7 14.0-18.0 [facility] CenterTynqnygIDAKQYTQUV4546-18-05 08:25:00 Test Item Value Reference Range Interpretation Comments Hct (test code = Hct) 33.4 42.0-54.0 [facility] CenterBicmxroJMUXSILDFR7556-26-18 08:25:00 Test Item Value Reference Range Interpretation Comments MCV (test code = MCV) 82.2 80.0-94.0 [facility] CenterDwcyddaGBYHSIAHRU8330-39-91 08:25:00 Test Item Value Reference Range Interpretation Comments MCH (test code = MCH) 26.4 pg 27.0-31.0 [facility] CenterGjabxryYQEOIFNCKW4583-92-91 08:25:00 Test Item Value Reference Range Interpretation Comments MCHC (test code = MCHC) 32.1 32.0-36.0 [place] 887802-10-08 08:25:00 Test Item Value Reference Range Interpretation Comments RDW (test code = RDW) 16.1 11.5-14.5 [facility] CenterKwwjxndCCPLKXMDTC9414-97-67 08:25:00 Test Item Value Reference Range Interpretation Comments Platelet (test code = Platelet) 154 133-450 [facility] CenterTjppiiwKNWWBKWRWS7746-90-59 08:25:00 Test Item Value Reference Range Interpretation Comments MPV (test code = MPV) 7.8 7.4-10.4 [place] 887802-10-08 08:25:00 Test Item Value Reference Range Interpretation Comments Segs (test code = Segs) 81.9 45.0-75.0 [place] [address]-10-08 08:25:00 Test Item Value Reference Range Interpretation Comments Lymphocytes (test code = Lymphocytes) 13.0 20.0-40.0 [place] [address]-10-08 08:25:00 Test Item Value Reference Range Interpretation Comments Monocytes (test code = Monocytes) 4.0 2.0-12.0 [place] [address]-10-08 08:25:00 Test Item Value Reference Range Interpretation Comments Eosinophils (test code = 0.4 See_Comment [A utomated message] The Eosinophils) system which ge nerated this result tra nsmitted reference range : <=4.0. The reference r jeff was not used to int erpret this result as normal/abnormal . [place] [address]-10-08 08:25:00 Test Item Value Reference Range Interpretation Comments Basophils (test code = 0.7 See_Comment [Aut omated message] The Basophils) system which ge nerated this result tra nsmitted reference range : <=1.0. The reference r jeff was not used to int erpret this result as normal/abnormal . [place] [address]-10-08 08:25:00 Test Item Value Reference Range Interpretation Comments Neutrophils # (test code = Neutrophils 5.2 1.5-8.1 #) [address]10-08 08:25:00 Test Item Value Reference Range Interpretation Comments Lymphocytes # (test code = Lymphocytes 0.8 1.0-5.5 #) [place] 366252-10-08 02:17:00 Test Item Value Reference Range Interpretation Comments Lactic Acid Lvl (test code = Lactic 1.7 0.5-2.2 Acid Lvl) [place] 366252-10-08 02:17:00 Test Item Value Reference Range Interpretation Comments Lactic Acid Lvl (test code = Lactic 1.7 0.5-2.2 Acid Lvl) [place] [address]-10-08 02:17:00 Test Item Value Reference Range Interpretation Comments Lactic Acid Lvl (test code = Lactic 1.7 0.5-2.2 Acid Lvl) [facility]2022-10-08 00:02:00 Test Item Value Reference Range Interpretation Comments Lactic Acid Lvl (test code = Lactic 2.3 0.5-2.2 Acid Lvl) [place] 366252-10-08 00:02:00 Test Item Value Reference Range Interpretation Comments Lactic Acid Lvl (test code = Lactic 2.3 0.5-2.2 Acid Lvl) [place] 366252-10-08 00:02:00 Test Item Value Reference Range Interpretation Comments Lactic Acid Lvl (test code = Lactic 2.3 0.5-2.2 Acid Lvl) [place] [address]-10-07 23:40:00 Test Item Value Reference Range Interpretation Comments Coronavirus (COVID-19) Not Detected (03/07/22 BRYANT (test code = 6:40 PM) Coronavirus (COVID-19) BRYANT) [place] [address]-10-07 23:40:00 Test Item Value Reference Range Interpretation Comments Coronavirus (COVID-19) Not Detected (03/07/22 BRYANT (test code = 6:40 PM) Coronavirus (COVID-19) BRYANT) [place] 138432-10-07 23:40:00 Test Item Value Reference Range Interpretation Comments Coronavirus (COVID-19) Not Detected (03/07/22 BRYANT (test code = 6:40 PM) Coronavirus (COVID-19) BRYANT) [place] 887802-10-07 22:16:00 Test Item Value Reference Range Interpretation Comments MCHC (test code = MCHC) 32.3 32.0-36.0 [place] 887802-10-07 22:16:00 Test Item Value Reference Range Interpretation Comments RDW (test code = RDW) 15.8 11.5-14.5 [place] [address]-10-07 22:16:00 Test Item Value Reference Range Interpretation Comments Platelet (test code = Platelet) 186 133-450 [facility] CenterLwwfspzILIWFMAMWQ6101-15-98 22:16:00 Test Item Value Reference Range Interpretation Comments MPV (test code = MPV) 7.9 7.4-10.4 [place] 887802-10-07 22:16:00 Test Item Value Reference Range Interpretation Comments Segs (test code = Segs) 80.9 45.0-75.0 [facility] CenterDoehswkZSOUGXTKVD2794-25-50 22:16:00 Test Item Value Reference Range Interpretation Comments Lymphocytes (test code = Lymphocytes) 12.2 20.0-40.0 [place] 887802-10-07 22:16:00 Test Item Value Reference Range Interpretation Comments Monocytes (test code = Monocytes) 6.0 2.0-12.0 [place] 887802-10-07 22:16:00 Test Item Value Reference Range Interpretation Comments Eosinophils (test code = 0.1 See_Comment [A utomated message] The Eosinophils) system which ge nerated this result tra nsmitted reference range : <=4.0. The reference r jeff was not used to int erpret this result as normal/abnormal . [facility] CenterZejdiarIYFBZAZRKR1396-76-88 22:16:00 Test Item Value Reference Range Interpretation Comments MCHC (test code = MCHC) 32.3 32.0-36.0 [facility] CenterGzjununATOOOPAWUP9716-66-35 22:16:00 Test Item Value Reference Range Interpretation Comments Basophils (test code = 0.8 See_Comment [Aut omated message] The Basophils) system which ge nerated this result tra nsmitted reference range : <=1.0. The reference r jeff was not used to int erpret this result as normal/abnormal . [facility] CenterImacocrFABUMXPVFY9271-47-46 22:16:00 Test Item Value Reference Range Interpretation Comments RDW (test code = RDW) 15.8 11.5-14.5 [place] 887802-10-07 22:16:00 Test Item Value Reference Range Interpretation Comments Platelet (test code = Platelet) 186 133-450 [place] 887802-10-07 22:16:00 Test Item Value Reference Range Interpretation Comments MPV (test code = MPV) 7.9 7.4-10.4 [place] 887802-10-07 22:16:00 Test Item Value Reference Range Interpretation Comments Segs (test code = Segs) 80.9 45.0-75.0 [place] 887802-10-07 22:16:00 Test Item Value Reference Range Interpretation Comments Lymphocytes (test code = Lymphocytes) 12.2 20.0-40.0 [place] [address]-10-07 22:16:00 Test Item Value Reference Range Interpretation Comments Monocytes (test code = Monocytes) 6.0 2.0-12.0 [place] [address]-10-07 22:16:00 Test Item Value Reference Range Interpretation Comments Eosinophils (test code = 0.1 See_Comment [A utomated message] The Eosinophils) system which ge nerated this result tra nsmitted reference range : <=4.0. The reference r jeff was not used to int erpret this result as normal/abnormal . [place] 887802-10-07 22:16:00 Test Item Value Reference Range Interpretation Comments Basophils (test code = 0.8 See_Comment [Aut omated message] The Basophils) system which ge nerated this result tra nsmitted reference range : <=1.0. The reference r jeff was not used to int erpret this result as normal/abnormal . [place] [address]-10-07 22:16:00 Test Item Value Reference Range Interpretation Comments Neutrophils # (test code = Neutrophils 3.4 1.5-8.1 #) [place] [address]-10-07 22:16:00 Test Item Value Reference Range Interpretation Comments Lymphocytes # (test code = Lymphocytes 0.5 1.0-5.5 #) [place] [address]-10-07 22:16:00 Test Item Value Reference Range Interpretation Comments Neutrophils # (test code = Neutrophils 3.4 1.5-8.1 #) [place] [address]-10-07 22:16:00 Test Item Value Reference Range Interpretation Comments Monocytes # (test code 0.3 See_Comment [Aut omated message] The = Monocytes #) system which generated this result tra nsmitted reference range : <=0.8. The reference r jeff was not used to int erpret this result as normal/abnormal . [place] 366252-10-07 22:16:00 Test Item Value Reference Range Interpretation Comments Glucose Lvl (test code = Glucose Lvl) 126 70-99 [place] 366252-10-07 22:16:00 Test Item Value Reference Range Interpretation Comments BUN (test code = BUN) 35 7-22 [place] 366252-10-07 22:16:00 Test Item Value Reference Range Interpretation Comments Creatinine Lvl (test code = Creatinine 8.22 0.50-1.40 Lvl) [place] [address]-10-07 22:16:00 Test Item Value Reference Range Interpretation Comments Sodium Lvl (test code = Sodium Lvl) 140 135-145 [place] [address]-10-07 22:16:00 Test Item Value Reference Range Interpretation Comments Potassium Lvl (test code = Potassium 4.4 3.5-5.1 Lvl) [place] 366252-10-07 22:16:00 Test Item Value Reference Range Interpretation Comments Chloride Lvl (test code = Chloride Lvl) 101 95-109 [place] 366252-10-07 22:16:00 Test Item Value Reference Range Interpretation Comments CO2 (test code = CO2) 29 24-32 [place] [address]-10-07 22:16:00 Test Item Value Reference Range Interpretation Comments Calcium Lvl (test code = Calcium Lvl) 9.5 8.5-10.5 [facility]JDVNCGXIG6419-89-59 22:16:00 Test Item Value Reference Range Interpretation Comments Lymphocytes # (test code = Lymphocytes 0.5 1.0-5.5 #) [place] 366252-10-07 22:16:00 Test Item Value Reference Range Interpretation Comments Total Protein (test code = Total 7.3 6.4-8.4 Protein) [place] [address]-10-07 22:16:00 Test Item Value Reference Range Interpretation Comments Albumin Lvl (test code = Albumin Lvl) 3.4 3.5-5.0 [place] [address]-10-07 22:16:00 Test Item Value Reference Range Interpretation Comments ALT (test code = ALT) 14 See_Comment [Auto mated message] The system which ge nerated this result transmit fatoumata reference range : <=65. The reference range was not used to interpr et this result as edwin l/abnormal. [place] 366252-10-07 22:16:00 Test Item Value Reference Range Interpretation Comments AST (test code = AST) 16 See_Comment [Auto mated message] The system which ge nerated this result transmit fatoumata reference range : <=37. The reference range was not used to interpr et this result as edwin l/abnormal. [place] 366252-10-07 22:16:00 Test Item Value Reference Range Interpretation Comments Alk Phos (test code = Alk Phos) 67 39-136 [place] 366252-10-07 22:16:00 Test Item Value Reference Range Interpretation Comments Bili Total (test code = Bili Total) 0.5 0.2-1.3 [place] 366252-10-07 22:16:00 Test Item Value Reference Range Interpretation Comments AGAP (test code = AGAP) 14.4 10.0-20.0 [place] [address]-10-07 22:16:00 Test Item Value Reference Range Interpretation Comments B/C Ratio (test code = B/C Ratio) 4 1 6-25 [place] [address]-10-07 22:16:00 Test Item Value Reference Range Interpretation Comments Globulin (test code = Globulin) 3.9 2.7-4.2 [place] 366252-10-07 22:16:00 Test Item Value Reference Range Interpretation Comments A/G Ratio (test code = A/G Ratio) 0.9 1 0.7-1.6 [place] [address]-10-07 22:16:00 Test Item Value Reference Range Interpretation Comments Monocytes # (test code 0.3 See_Comment [Aut omated message] The = Monocytes #) system which generated this result tra nsmitted reference range : <=0.8. The reference r jeff was not used to int erpret this result as normal/abnormal . [facility] [id number] 22:16:00 Test Item Value Reference Range Interpretation Comments eGFR (test code = eGFR) 6 [place] 887802-10-07 22:16:00 Test Item Value Reference Range Interpretation Comments WBC (test code = WBC) 4.2 3.7-10.4 [place] 887802-10-07 22:16:00 Test Item Value Reference Range Interpretation Comments RBC (test code = RBC) 4.69 4.70-6.10 [place] [address]-10-07 22:16:00 Test Item Value Reference Range Interpretation Comments Hgb (test code = Hgb) 12.6 14.0-18.0 [place] [address]-10-07 22:16:00 Test Item Value Reference Range Interpretation Comments Hct (test code = Hct) 38.9 42.0-54.0 [place] 887802-10-07 22:16:00 Test Item Value Reference Range Interpretation Comments MCV (test code = MCV) 83.0 80.0-94.0 [place] [address]-10-07 22:16:00 Test Item Value Reference Range Interpretation Comments MCH (test code = MCH) 26.8 pg 27.0-31.0 [place] 366252-10-07 22:16:00 Test Item Value Reference Range Interpretation Comments Glucose Lvl (test code = Glucose Lvl) 126 70-99 [place] 366252-10-07 22:16:00 Test Item Value Reference Range Interpretation Comments BUN (test code = BUN) 35 7-22 [place] 366252-10-07 22:16:00 Test Item Value Reference Range Interpretation Comments Creatinine Lvl (test code = Creatinine 8.22 0.50-1.40 Lvl) [place] 366252-10-07 22:16:00 Test Item Value Reference Range Interpretation Comments Sodium Lvl (test code = Sodium Lvl) 140 135-145 [place] 366252-10-07 22:16:00 Test Item Value Reference Range Interpretation Comments Potassium Lvl (test code = Potassium 4.4 3.5-5.1 Lvl) [place] 366252-10-07 22:16:00 Test Item Value Reference Range Interpretation Comments Chloride Lvl (test code = Chloride Lvl) 101 95-109 [place] 366252-10-07 22:16:00 Test Item Value Reference Range Interpretation Comments CO2 (test code = CO2) 29 24-32 [place] 366252-10-07 22:16:00 Test Item Value Reference Range Interpretation Comments Calcium Lvl (test code = Calcium Lvl) 9.5 8.5-10.5 [place] 366252-10-07 22:16:00 Test Item Value Reference Range Interpretation Comments Total Protein (test code = Total 7.3 6.4-8.4 Protein) [place] 366252-10-07 22:16:00 Test Item Value Reference Range Interpretation Comments Albumin Lvl (test code = Albumin Lvl) 3.4 3.5-5.0 [facility] [id number] 22:16:00 Test Item Value Reference Range Interpretation Comments ALT (test code = ALT) 14 See_Comment [Auto mated message] The system which ge nerated this result transmit fatoumata reference range : <=65. The reference range was not used to interpr et this result as edwin l/abnormal. [facility] [id number] 22:16:00 Test Item Value Reference Range Interpretation Comments AST (test code = AST) 16 See_Comment [Auto mated message] The system which ge nerated this result transmit fatoumata reference range : <=37. The reference range was not used to interpr et this result as edwin l/abnormal. [facility] [id number] 22:16:00 Test Item Value Reference Range Interpretation Comments Alk Phos (test code = Alk Phos) 67 39-136 [facility] [id number] 22:16:00 Test Item Value Reference Range Interpretation Comments Bili Total (test code = Bili Total) 0.5 0.2-1.3 [facility] [id number] 22:16:00 Test Item Value Reference Range Interpretation Comments AGAP (test code = AGAP) 14.4 10.0-20.0 [facility] [id number] 22:16:00 Test Item Value Reference Range Interpretation Comments B/C Ratio (test code = B/C Ratio) 4 1 6-25 [facility] [id number] 22:16:00 Test Item Value Reference Range Interpretation Comments Globulin (test code = Globulin) 3.9 2.7-4.2 [facility] [id number] 22:16:00 Test Item Value Reference Range Interpretation Comments A/G Ratio (test code = A/G Ratio) 0.9 1 0.7-1.6 [facility] [id number] 22:16:00 Test Item Value Reference Range Interpretation Comments eGFR (test code = eGFR) 6 [place] 887802-10-07 22:16:00 Test Item Value Reference Range Interpretation Comments WBC (test code = WBC) 4.2 3.7-10.4 [place] 887802-10-07 22:16:00 Test Item Value Reference Range Interpretation Comments RBC (test code = RBC) 4.69 4.70-6.10 [place] 887802-10-07 22:16:00 Test Item Value Reference Range Interpretation Comments Hgb (test code = Hgb) 12.6 14.0-18.0 [place] [address]-10-07 22:16:00 Test Item Value Reference Range Interpretation Comments Hct (test code = Hct) 38.9 42.0-54.0 [place] 887802-10-07 22:16:00 Test Item Value Reference Range Interpretation Comments MCV (test code = MCV) 83.0 80.0-94.0 [place] [address]-10-07 22:16:00 Test Item Value Reference Range Interpretation Comments MCH (test code = MCH) 26.8 pg 27.0-31.0 [place] 887802-10-07 22:16:00 Test Item Value Reference Range Interpretation Comments MCHC (test code = MCHC) 32.3 32.0-36.0 [place] 887802-10-07 22:16:00 Test Item Value Reference Range Interpretation Comments RDW (test code = RDW) 15.8 11.5-14.5 [place] 887802-10-07 22:16:00 Test Item Value Reference Range Interpretation Comments Platelet (test code = Platelet) 186 133-450 [facility] [id number] 22:16:00 Test Item Value Reference Range Interpretation Comments MPV (test code = MPV) 7.9 7.4-10.4 [place] [id number] 22:16:00 Test Item Value Reference Range Interpretation Comments Segs (test code = Segs) 80.9 45.0-75.0 [place] [id number] 22:16:00 Test Item Value Reference Range Interpretation Comments Lymphocytes (test code = Lymphocytes) 12.2 20.0-40.0 [place] [id number] 22:16:00 Test Item Value Reference Range Interpretation Comments Monocytes (test code = Monocytes) 6.0 2.0-12.0 [place] [id number] 22:16:00 Test Item Value Reference Range Interpretation Comments Eosinophils (test code = 0.1 See_Comment [A utomated message] The Eosinophils) system which ge nerated this result tra nsmitted reference range : <=4.0. The reference r jeff was not used to int erpret this result as normal/abnormal . [place] [id number] 22:16:00 Test Item Value Reference Range Interpretation Comments Basophils (test code = 0.8 See_Comment [Aut omated message] The Basophils) system which ge nerated this result tra nsmitted reference range : <=1.0. The reference r jeff was not used to int erpret this result as normal/abnormal . [place] [id number] 22:16:00 Test Item Value Reference Range Interpretation Comments Neutrophils # (test code = Neutrophils 3.4 1.5-8.1 #) [place] [id number] 22:16:00 Test Item Value Reference Range Interpretation Comments Lymphocytes # (test code = Lymphocytes 0.5 1.0-5.5 #) [place] [id number] 22:16:00 Test Item Value Reference Range Interpretation Comments Monocytes # (test code 0.3 See_Comment [Aut omated message] The = Monocytes #) system which generated this result tra nsmitted reference range : <=0.8. The reference r jeff was not used to int erpret this result as normal/abnormal . [facility]2022-10-07 22:16:00 Test Item Value Reference Range Interpretation Comments Glucose Lvl (test code = Glucose Lvl) 126 70-99 [place] [id number] 22:16:00 Test Item Value Reference Range Interpretation Comments BUN (test code = BUN) 35 7-22 [place] [address]-10-07 22:16:00 Test Item Value Reference Range Interpretation Comments Creatinine Lvl (test code = Creatinine 8.22 0.50-1.40 Lvl) [place] 366252-10-07 22:16:00 Test Item Value Reference Range Interpretation Comments Sodium Lvl (test code = Sodium Lvl) 140 135-145 [place] 366252-10-07 22:16:00 Test Item Value Reference Range Interpretation Comments Potassium Lvl (test code = Potassium 4.4 3.5-5.1 Lvl) [place] [address]-10-07 22:16:00 Test Item Value Reference Range Interpretation Comments Chloride Lvl (test code = Chloride Lvl) 101 95-109 [facility] [id number] 22:16:00 Test Item Value Reference Range Interpretation Comments CO2 (test code = CO2) 29 24-32 [facility] [id number] 22:16:00 Test Item Value Reference Range Interpretation Comments Calcium Lvl (test code = Calcium Lvl) 9.5 8.5-10.5 [facility] [id number] 22:16:00 Test Item Value Reference Range Interpretation Comments Total Protein (test code = Total 7.3 6.4-8.4 Protein) [facility] [id number] 22:16:00 Test Item Value Reference Range Interpretation Comments Albumin Lvl (test code = Albumin Lvl) 3.4 3.5-5.0 [facility] [id number] 22:16:00 Test Item Value Reference Range Interpretation Comments ALT (test code = ALT) 14 See_Comment [Auto mated message] The system which ge nerated this result transmit fatoumata reference range : <=65. The reference range was not used to interpr et this result as edwin l/abnormal. [facility] Yatedo [id number] 22:16:00 Test Item Value Reference Range Interpretation Comments AST (test code = AST) 16 See_Comment [Auto mated message] The system which ge nerated this result transmit fatoumata reference range : <=37. The reference range was not used to interpr et this result as edwin l/abnormal. [facility] [id number] 22:16:00 Test Item Value Reference Range Interpretation Comments Alk Phos (test code = Alk Phos) 67 39-136 [facility] [id number] 22:16:00 Test Item Value Reference Range Interpretation Comments Bili Total (test code = Bili Total) 0.5 0.2-1.3 [facility] [id number] 22:16:00 Test Item Value Reference Range Interpretation Comments AGAP (test code = AGAP) 14.4 10.0-20.0 [facility] [id number] 22:16:00 Test Item Value Reference Range Interpretation Comments B/C Ratio (test code = B/C Ratio) 4 1 6-25 [facility] [id number] 22:16:00 Test Item Value Reference Range Interpretation Comments Globulin (test code = Globulin) 3.9 2.7-4.2 [facility] [id number] 22:16:00 Test Item Value Reference Range Interpretation Comments A/G Ratio (test code = A/G Ratio) 0.9 1 0.7-1.6 [facility] [id number] 22:16:00 Test Item Value Reference Range Interpretation Comments eGFR (test code = eGFR) 6 [id number] 22:16:00 Test Item Value Reference Range Interpretation Comments WBC (test code = WBC) 4.2 3.7-10.4 [facility] Cent[id number] 22:16:00 Test Item Value Reference Range Interpretation Comments RBC (test code = RBC) 4.69 4.70-6.10 [facility] CenterQ[id number] 22:16:00 Test Item Value Reference Range Interpretation Comments Hgb (test code = Hgb) 12.6 14.0-18.0 [facility] Cent[id number] 22:16:00 Test Item Value Reference Range Interpretation Comments Hct (test code = Hct) 38.9 42.0-54.0 [facility] [id number] 22:16:00 Test Item Value Reference Range Interpretation Comments MCV (test code = MCV) 83.0 80.0-94.0 [facility] CenterJadqanwIYOIPJKRGK0470-28-23 22:16:00 Test Item Value Reference Range Interpretation Comments MCH (test code = MCH) 26.8 pg 27.0-31.0 [facility] [id number] 22:05:00 Test Item Value Reference Range Interpretation Comments POC glucose (test code 102 mg/dL 65-99 [facility] Name: = 55258-6) Max Jo I D: [id number] able: RN Notified Lab Interpretation Abnormal (test code = 19131-9) [facility] [id number] 22:05:00 Test Item Value Reference Range Interpretation Comments POC glucose (test code 102 mg/dL 65-99 [facility] Name: = 20390-9) Max Jo I D: [id number] able: RN Notified Lab Interpretation Abnormal (test code = 96894-1) [address]2022-07-09 02:13:03 Test Item Value Reference Range Interpretation Comments Ventricular rate (test code = 253) Atrial rate (test code = 255) NM interval (test code = 266) QRSD interval (test code = 260) QT interval (test code = 264) QTC interval (test code = 265) P axis 1 (test code = 267) QRS axis 1 (test code = 268) T wave axis (test code = 270) EKG impression (test Sinus rhythm with code = 273) occasional premature ventricular complexes-Otherwise normal ECG-In automated comparison with ECG of 04-DEC-2021 11:19,-premature ventricular complexes are now present- [address]2022-07-09 02:13:03 Test Item Value Reference Range Interpretation Comments Ventricular rate (test code = 253) Atrial rate (test code = 255) NM interval (test code = 266) QRSD interval (test code = 260) QT interval (test code = 264) QTC interval (test code = 265) P axis 1 (test code = 267) QRS axis 1 (test code = 268) T wave axis (test code = 270) EKG impression (test Sinus rhythm with code = 273) occasional premature ventricular complexes-Otherwise normal ECG-In automated comparison with ECG of 04-DEC-2021 11:19,-premature ventricular complexes are now present- [address]2022-07-09 02:13:03 Test Item Value Reference Range Interpretation Comments Ventricular rate (test code = 253) Atrial rate (test code = 255) NM interval (test code = 266) QRSD interval (test code = 260) QT interval (test code = 264) QTC interval (test code = 265) P axis 1 (test code = 267) QRS axis 1 (test code = 268) T wave axis (test code = 270) EKG impression (test Sinus rhythm with code = 273) occasional premature ventricular complexes-Otherwise normal ECG-In automated comparison with ECG of 04-DEC-2021 11:19,-premature ventricular complexes are now present- [facility] [Presence] in Respiratory specimen by BRYANT with probe [id number] 16:32:59 Test Item Value Reference Range Interpretation Comments SARS-CoV-2 (COVID-19) RNA Not detected [Presence] in Respiratory specimen by BRYANT with probe detection (test code = 31297-2) Whether patient is employed in a Unknown healthcare setting (test code = 26063-1) Whether the patient has symptoms Unknown related to condition of interest (test code = 97086-1) Whether the patient was Unknown hospitalized for condition of interest (test code = 81185-4) Whether the patient was admitted Unknown to intensive care unit (ICU) for condition of interest (test code = 13243-9) Whether patient resides in a Unknown congregate care setting (test code = 67262-6) status (test code = Unknown 51777-0) Date and time of symptom onset Unknown (test code = 50578-7) [facility] ED Preliminary Interpretation - Not an [id number] 12:38:30 Test Item Value Reference Range Interpretation Comments KANIKA (test code = KANIKA) Chandan Garcia MD 12/04/2021 1:44 [facility] [place] Interpretation - Not an OrderPerformed by: Chandan Garcia MDAuthorized by: Chandan Garcia MD ECG reviewed by ED Physician in the absence of a cable assembler: yes Interpretation: Interpretation: abnormal Rate: ECG rate: 59 ECG rate assessment: bradycardic Rhythm: Rhythm: sinus bradycardia Ectopy: Ectopy: none QRS: QRS axis: Normal QRS intervals: NormalST segments: ST segments: Non-specificT waves: T waves: non-specific Lab Interpretation Abnormal (test code = 29974-3) [facility] ED Preliminary Interpretation - Not an [id number] 12:38:30 Test Item Value Reference Range Interpretation Comments KANIKA (test code = KANIKA) Chandan Garcia MD 12/04/2021 1:44 [facility] [place] Interpretation - Not an OrderPerformed by: Chandan Garcia MDAuthorized by: Chandan Garcia MD ECG reviewed by ED Physician in the absence of a cable assembler: yes Interpretation: Interpretation: abnormal Rate: ECG rate: 59 ECG rate assessment: bradycardic Rhythm: Rhythm: sinus bradycardia Ectopy: Ectopy: none QRS: QRS axis: Normal QRS intervals: NormalST segments: ST segments: Non-specificT waves: T waves: non-specific Lab Interpretation Abnormal (test code = 27895-8) [facility] ED Preliminary Interpretation - Not an [id number] 12:38:30 Test Item Value Reference Range Interpretation Comments KANIKA (test code = KANIKA) Chandan Garcia MD 12/04/2021 1:44 [facility] [place] Interpretation - Not an OrderPerformed by: Chandan Garcia MDAuthorized by: Chandan Garcia MD ECG reviewed by ED Physician in the absence of a cable assembler: yes Interpretation: Interpretation: abnormal Rate: ECG rate: 59 ECG rate assessment: bradycardic Rhythm: Rhythm: sinus bradycardia Ectopy: Ectopy: none QRS: QRS axis: Normal QRS intervals: NormalST segments: ST segments: Non-specificT waves: T waves: non-specific Lab Interpretation Abnormal (test code = 72439-1) [facility] [Presence] in Respiratory specimen by BRYANT with probe [id number] 20:55:57 Test Item Value Reference Range Interpretation Comments SARS-CoV-2 (COVID-19) RNA Not detected Not-Detected [Presence] in Respiratory specimen by BRYANT with probe detection (test code = 47758-5) Whether patient is employed in a healthcare setting (test code = 63281-4) Whether the patient has symptoms related to condition of interest (test code = 58470-2) Patient was hospitalized because of this condition (test code = 29842-0) Whether the patient was admitted to intensive care unit (ICU) for condition of interest (test code = 26553-8) Whether patient resides in a congregate care setting (test code = 19542-0) [facility]-CoV-[facility] (COVID-19) RNA [Presence] in Respiratory specimen by BRYANT with probe [id number] 16:58:19 Test Item Value Reference Range Interpretation Comments SARS-CoV-2 (COVID-19) RNA Not detected Not-Detected [Presence] in Respiratory specimen by BRYANT with probe detection (test code = 85181-7) Whether patient is employed in a healthcare setting (test code = 31090-4) Whether the patient has symptoms related to condition of interest (test code = 96503-7) Patient was hospitalized because of this condition (test code = 80408-0) Whether the patient was admitted to intensive care unit (ICU) for condition of interest (test code = 83229-8) Whether patient resides in a congregate care setting (test code = 63018-7) [facility]-CoV-2 (COVID-19) RNA [Presence] in Respiratory specimen by BRYANT with probe [id number] 00:21:46 Test Item Value Reference Range Interpretation Comments SARS-CoV-2 (COVID-19) RNA Not detected Not-Detected [Presence] in Respiratory specimen by BRYANT with probe detection (test code = 67998-5) [facility]-CoV-[facility] (COVID-19) RNA [Presence] in Respiratory specimen by BRYANT with probe [id number] 03:36:52 Test Item Value Reference Range Interpretation Comments SARS-CoV-2 (COVID-19) RNA Not detected Not-Detected [Presence] in Respiratory specimen by BRYANT with probe detection (test code = 68678-7) [facility]
[2022-05-16 19:08] LABS: Absolute Lymphocytes (CBC) 0.9 K/uL (0.7-4.9); Hematocrit 28.4 % (39.6-49.0); Lymphocytes % 15.1 % (15.3-44.8); MCV 85.9 fL (80-100); MPV 7.4 fL (7.6-11.3); RBC Red Blood Cell Count 3.31 M/uL (4.33-5.43)
[2022-05-16] MEDS ORDERED: ONDANSETRON 4 MG/2 ML VIAL ONE (19:31)
[2022-05-16] MEDS ORDERED: FAMOTIDINE 20 MG/2 ML VIAL IV ONE (19:31)
[2022-05-16 19:33] LABS: Albumin 2.6 g/dL (3.4-5.0); Bilirubin Total 0.5 mg/dL (0.2-1.0); Potassium 3.5 mmol/L (3.5-5.1); Protein, Total 6.4 g/dL (6.4-8.2)
--- NOTE | 2022-05-16 22:03 | RAD REPORT ---
EXAM DESCRIPTION: CT - Abdomen Pelvis Wo Contrast - 05/16/2022 9:43 pm CLINICAL HISTORY: Abdominal pain. abdominal pain, vomiting COMPARISON: [facility] Protocol dated 08/29/2018; Chest Single View dated 06/12/2017 TECHNIQUE: CT imaging of the abdomen and pelvis was performed without contrast. Solid organ and vasc ular assessment is limited due to lack of IV contrast. All CT scans are performed using dose optimization technique as appropriate and may include automated exposure control or mA/KV adjustment according to patient size. FINDINGS: The lower lung cutler are clear. The liver, spleen, pancreas, adrenal glands are within normal limits for a limited non-contrast exami nation.Both kidneys are moderately atrophic with multiple cysts. Dilatation of the transverse duodenum is seen measuring up to 6 cm in dimension. Mild free fluid is p resent in the abdomen. No free air is seen. No abscess present. The appendix is normal. Moderate lumbosacral degenerative changes. IMPRESSION: There is distention of the duodenal C-loop transverse duodenum measuring up 6 cm. This m ay indicate a mild developing partial mechanical obstruction in the region of the distal duodenum/pro ximal jejunum. Mild free fluid is seen in the abdomen. Follow-up nonemergent assessment of the small intestine with pill camera may be considered. A limited non-contrast examination was performed as detailed.
--- NOTE | 2022-05-16 23:36 | ER ---
Nurse's Notes [facility] Name: Jeffery Sneed Age: 76 yrs Sex: Male : 1945 Arrival Date: 05/16/2022 Time: 17:25 Bed 15 Private MD: Diagnosis: Partial Small Bowel Obstruction Presentation: 05/16 17:43 Chief complaint: Patient states: epigastric pain and intermittent vomiting x4 months. kb3 Pt had an EGD in Dr Haq's office yesterday and was told to have a CT done due to a mass behind the esophagus. No orders were received from GI office so pt checked into ER for CT to be completed. Coronavirus screen: Vaccine status: Patient reports receiving the 2nd dose of the covid vaccine. Client denies travel out of the [place] in the last 14 days. Ebola Screen: Patient negative for fever greater than or equal to 101.5 degrees Fahrenheit, and additional compatible Ebola Virus Disease symptoms Patient denies exposure to infectious person. Patient denies travel to an Ebola-affected area in the 21 days before illness onset. No symptoms or risks identified at this time. Initial Sepsis Screen: Does the patient meet any 2 criteria? No. Patient's initial sepsis screen is negative. Does the patient have a suspected source of infection? No. Patient's initial sepsis screen is negative. Risk Assessment: Do you want to hurt yourself or someone else? Patient reports no desire to harm self or others. Onset of symptoms is unknown. 17:43 Method Of Arrival: Ambulatory kb3 17:43 Acuity: MAHESH 3 kb3 Triage Assessment: 17:45 General: Appears in no apparent distress. Behavior is calm, cooperative. Pain: kb3 Complains of pain in epigastric area, right upper quadrant and left upper quadrant Pain does not radiate. Pain currently is 6 out of 10 on a pain scale. at worst was 10 out of 10 on a pain scale. GI: Reports upper abdominal pain, epigastric pain, intolerance of food, nausea. Historical: - Allergies: 17:45 NKA; kb3 - PMHx: 17:45 Dialysis; Glaucoma; Hyperlipidemia; Hypertension; NIDDM-diet controlled; kb3 - PSHx: 17:45 PD catheter placed and subsequently removed; Dialysis fistula R forearm; kb3 - Immunization history:: Adult Immunizations up to date, Client reports receiving the 2nd dose of the Covid vaccine. - Social history:: Smoking status: Patient denies any tobacco usage or history of. Screenin:46 Abuse screen: Denies threats or abuse. Denies injuries from another. Nutritional db screening: No deficits noted. Tuberculosis screening: No symptoms or risk factors identified. Fall Risk No secondary diagnosis (0 pts). No IV (0 pts). Ambulatory Aid- None/Bed Rest/Nurse Assist (0 pts). Gait- Normal/Bed Rest/Wheelchair (0 pts) Mental Status- Oriented to own ability (0 pts). Total De Guzman Fall Scale indicates No Risk (0-24 pts). 05/17 00:36 [facility] ED Fall Risk Assessment (Adult) History of falling in the last 3 months, ke1 including since admission No falls in past 3 months (0 pts) Confusion or Disorientation No (0 pts) Intoxicated or Sedated No (0 pts) Impaired Gait No (0 pts) Mobility Assist Device Used No (0 pt) Altered Elimination No (0 pt) Score/Fall Risk Level 0 - 2 = Low Risk. Humpty Dumpty Scale Fall Assessment Tool (age< 18yrs) Age 13 years and above (1 pt) Gender Male (2 pts) Diagnosis Other diagnosis (1 pt) Cognitive Impairments Oriented to own ability (1 pt) Environmental Factors Outpatient area (1 pt) Response to Surgery/Sedation/Anesthesia More than 48 hours/ None (1 pt) Medication Usage Other medications/ None (1 pt) Fall Risk Score/ Level Low Fall Risk: </= 11 points. Assessment: 05/16 18:00 General: Notes from pt's procedure state that pt will be sent to ER for further kb3 evaluation as EGD was suspicious for SBO. Luis Angel ABREU notified. 18:44 Reassessment: Patient appears in no apparent distress at this time. No changes from db previously documented assessment. Patient and/or family updated on plan of care and expected duration. Pain level reassessed. Patient is alert, oriented x 3, equal unlabored respirations, skin warm/dry/pink. dialysis patient that has abdominal pain with nausea vomiting and weight loss x 8 months. Neuro: No deficits noted. Level of Consciousness is awake, alert, obeys commands, Moves all extremities. Speech is normal. Respiratory: No deficits noted. GI: Bowel sounds present X 4 quads. Abd is soft Abdomen is tender to palpation X 4 quads. 22:00 Reassessment: Patient and/or family updated on plan of care and expected duration. Pain ke1 level reassessed. Patient is alert, oriented x 3, equal unlabored respirations, skin warm/dry/pink. Patient denies pain at this time. 05/17 01:04 Reassessment: report given to 4th floor. ke1 Vital Signs: 05/16 17:43 BP 149 / 80; Pulse 74; Resp 20; Temp 98.4; Pulse Ox 100% ; Weight 66.22 kg; Height 5 kb3 ft. 5 in. (165.10 cm); Pain 6/10; 18:46 BP 166 / 78; Pulse 75; Resp 16; Pulse Ox 99% on R/A; db 19:08 BP 158 / 70; Pulse 72; Resp 17; Temp 98.2; Pulse Ox 100% ; Pain 0/10; ke1 05/17 00:35 BP 193 / 85; Pulse 74; Resp 17; Temp 98.1; Pulse Ox 100% ; Pain 0/10; ke1 05/16 17:43 Body Mass Index 24.30 (66.22 kg, 165.10 cm) kb3 ED Course: 05/16 17:25 Patient arrived in ED. mr 17:28 Luis Angel Pires PA is PHCP. cp 17:28 Amanuel Truong MD is Attending Physician. cp 17:45 Triage completed. kb3 17:45 Arm band placed on left wrist. kb3 18:44 Светлана Miller, RN is Primary Nurse. db 19:00 Inserted saline lock: 20 gauge in left antecubital area, using aseptic technique. Blood db collected. 20:30 Bed in low position. ke1 21:05 Primary Nurse role handed off by Светлана Miller, RN wm 21:45 Abdomen In Process Unspecified. EDMS 21:59 Heather Alcaraz, JD is Primary Nurse. ke1 23:35 Luis Barreto MD is Hospitalizing Provider. cp 23:45 SARS RAPID Sent. ke1 05/17 00:23 No provider procedures requiring assistance completed. ke1 00:37 Patient admitted, IV remains in place. ke1 Administered Medications: 05/16 19:40 Drug: Zofran (Ondansetron) 4 mg Route: IVP; Site: left antecubital; ke1 20:30 Follow up: Response: Marked relief of symptoms ke1 19:40 Drug: Pepcid (famotidine) 20 mg Route: IVP; Site: left antecubital; ke1 20:30 Follow up: Response: Marked relief of symptoms ke1 05/17 00:37 Drug: hydrALAZINE 10 mg Route: IVP; Site: left antecubital; ke1 00:38 Follow up: Response: Other; Other medication administered at transfer ke1 Medication: 00:23 VIS not applicable for this client. ke1 Outcome: 05/16 23:35 Decision to Hospitalize by Provider. cp 05/17 00:37 Admitted to Med/surg accompanied by tech. ke1 Condition: good Instructed on the need for admit. 01:35 Patient left the ED. ke1 Signatures: Dispatcher [employer] EDMS Karyn Jara mr Luis Angel Pires PA PA cp Kaity Ponce Kouassi, RN RN ke1 Mikaela Medina RN RN kb3 Светлана Miller, RN RN db Corrections: (The following items were deleted from the chart) 05/16 17:48 17:45 PMHx: IDDM; kb3 kb3 19:21 19:20 General: Notes from pt's procedure state that pt will be sent to ER for further kb3 evaluation as EGD was suspicious for SBO. kb3 19:21 18:00 General: Notes from pt's procedure state that pt will be sent to ER for further kb3 evaluation as EGD was suspicious for SBO. kb3
--- NOTE | 2022-05-16 23:36 | EDPHYS ---
Physician Documentation [facility] Name: Jeffery Sneed Age: 76 yrs Sex: Male : 1945 Arrival Date: 05/16/2022 Time: 17:25 Bed 15 Private MD: ED Physician Amanuel Truong HPI: 05/16 18:45 This 76 yrs old Black Male presents to ER via Ambulatory with complaints of Abdominal cp Pain. 18:45 The patient presents with abdominal pain intermittent vomiting. Onset: The cp symptoms/episode began/occurred for months. 18:45 Patient reports he was referred to ED for CT abdomen/pelvis by DR Haq who cp performed upper endoscopy yesterday. Review of upper endoscopy report indicated concern for small bowel obstruction. Patient reports intermittent vomiting, weight loss, intolerance of food for months. Historical: - Allergies: 17:45 NKA; kb3 - PMHx: 17:45 Dialysis; Glaucoma; Hyperlipidemia; Hypertension; NIDDM-diet controlled; kb3 - PSHx: 17:45 PD catheter placed and subsequently removed; Dialysis fistula R forearm; kb3 - Immunization history:: Adult Immunizations up to date, Client reports receiving the 2nd dose of the Covid vaccine. - Social history:: Smoking status: Patient denies any tobacco usage or history of. ROS: 18:55 Eyes: Negative for injury, pain, redness, and discharge. cp 18:55 Constitutional: Positive for poor PO intake, Negative for body aches, chills, fever. 18:55 ENT: Negative for drainage from ear(s), ear pain, sore throat, difficulty swallowing, difficulty handling secretions. 18:55 Cardiovascular: Negative for chest pain, palpitations. 18:55 Respiratory: Negative for cough, shortness of breath, wheezing. 18:55 Abdomen/GI: Positive for abdominal pain, nausea and vomiting, anorexia, Negative for diarrhea, constipation, hematemesis, black/tarry stool, rectal bleeding. 18:55 Neuro: Negative for altered mental status, dizziness, headache, weakness. 18:55 All other systems are negative. Exam: 19:00 Constitutional: The patient appears in no acute distress, alert, awake, comfortable, cp non-diaphoretic, non-toxic, well developed, well nourished. 19:00 Head/Face: Normocephalic, atraumatic. cp 19:00 Eyes: Periorbital structures: appear normal, Conjunctiva: normal, no exudate, no injection, Sclera: no appreciated abnormality, Lids and lashes: appear normal, bilaterally. 19:00 ENT: External ear(s): are unremarkable, Nose: is normal, Mouth: Lips: moist, Oral mucosa: moist, Posterior pharynx: Airway: no evidence of obstruction, patent. 19:00 Chest/axilla: Inspection: normal. 19:00 Cardiovascular: Rate: normal, Edema: is not appreciated, JVD: is not appreciated. 19:00 Respiratory: the patient does not display signs of respiratory distress, Respirations: normal, no use of accessory muscles, no retractions, labored breathing, is not present, Breath sounds: are clear throughout, no decreased breath sounds, no stridor, no wheezing. 19:00 Abdomen/GI: Inspection: abdomen appears normal, Bowel sounds: active, all quadrants, Palpation: soft, in all quadrants, mild abdominal tenderness, in all quadrants. 19:00 Back: pain, is absent, ROM is painless. 19:00 Skin: no rash present. 19:00 Neuro: Orientation: to person, place \T\ time. Mentation: is normal, Motor: moves all fours, strength is normal, Sensation: is normal. Vital Signs: 17:43 BP 149 / 80; Pulse 74; Resp 20; Temp 98.4; Pulse Ox 100% ; Weight 66.22 kg; Height 5 kb3 ft. 5 in. (165.10 cm); Pain 6/10; 18:46 BP 166 / 78; Pulse 75; Resp 16; Pulse Ox 99% on R/A; db 19:08 BP 158 / 70; Pulse 72; Resp 17; Temp 98.2; Pulse Ox 100% ; Pain 0/10; ke1 05/17 00:35 BP 193 / 85; Pulse 74; Resp 17; Temp 98.1; Pulse Ox 100% ; Pain 0/10; ke1 05/16 17:43 Body Mass Index 24.30 (66.22 kg, 165.10 cm) kb3 MDM: 05/16 17:51 Patient medically screened. cp 19:00 Differential diagnosis: bowel obstruction, non-specific abd pain, ileus. cp 22:15 Data reviewed: vital signs, nurses notes, lab test result(s), radiologic studies, CT cp scan, I have discussed the patient's presentation/case with the attending Emergency Department Physician; and as a result, I will admit patient. 23:30 Physician consultation: Jordan Bahena MD was called at 23:25, was contacted at 23:25, regarding consult, patient's condition, would like admission per Dr. Luis Barreto MD. 23:35 Physician consultation: Samantha Jacobs PA-C was contacted at 23:35, regarding admission, cp to the telemetry unit. patient's condition. 05/16 18:42 Order name: CBC with Diff; Complete Time: 19:12 cp 05/16 19:12 Interpretation: Normal except: RBC 3.31; HGB 9.2; HCT 28.4; RDW 16.0; MPV 7.4; EVERETTE% cp 76.8; LYM% 15.1. 05/16 18:42 Order name: CMP; Complete Time: 19:34 cp 05/16 19:34 Interpretation: Normal except: BUN 21; CRE 4.18; GFR 14; CA 8.2; ALB 2.6; GLOB 3.8; A/G cp 0.7. 05/16 18:42 Order name: Lipase; Complete Time: 19:34 cp 05/16 23:40 Order name: SARS RAPID; Complete Time: 00:06 ke1 05/16 18:42 Order name: IV Saline Lock; Complete Time: 19:05 cp 05/16 18:42 Order name: Labs collected and sent; Complete Time: 19:05 cp 05/16 19:08 Order name: Abdomen ; Complete Time: 22:05 EDMS 05/16 22:06 Interpretation: Report reviewed. 05/16 23:02 Order name: NPO; Complete Time: 23:41 cp Administered Medications: 19:40 Drug: Zofran (Ondansetron) 4 mg Route: IVP; Site: left antecubital; ke1 20:30 Follow up: Response: Marked relief of symptoms ke1 19:40 Drug: Pepcid (famotidine) 20 mg Route: IVP; Site: left antecubital; ke1 20:30 Follow up: Response: Marked relief of symptoms ke1 05/17 00:37 Drug: hydrALAZINE 10 mg Route: IVP; Site: left antecubital; ke1 00:38 Follow up: Response: Other; Other medication administered at transfer ke1 Disposition Summary: 05/16/22 23:35 Hospitalization Ordered Hospitalization Status: Inpatient Admission cp Provider: Luis Barreto cp Location: Telemetry/MedSurg (Inpatient) cp Condition: Stable cp Problem: new cp Symptoms: are unchanged cp Bed/Room Type: Standard cp Room Assignment: 423(05/17/22 00:12) mw Diagnosis - Partial Small Bowel Obstruction cp Forms: - Medication Reconciliation Form cp - SBAR form cp Addendum: 05/21/2022 07:11 Co-signature as Attending Physician, Amanuel Truong MD I agree with the assessment and r t plan of care. Signatures: Dispatcher [employer] EDMS Elsa Mansfield RN RN Luis Angel Ramey PA PA cp Ebrottie, Kouassi, RN RN ke1 Mikaela Medina RN RN kb3 Samantha Jacobs PA-C PA-C sb4 Amanuel Truong MD MD rt Corrections: (The following items were deleted from the chart) 05/16 17:48 17:45 PMHx: IDDM; kb3 kb3 19:07 19:06 Abdomen Pelvis Wo Con+CT.RAD.BRZ ordered. EDWY EDMS 19:08 18:46 Abdomen Pelvis W Con+CT.RAD.BRZ ordered. EDWY EDWY 05/17 00:12 05/16 23:35 cp 05/18 00:05 05/17 19:00 Constitutional: Positive for poor PO intake, Negative for body aches, cp chills, fever, cp 05/18 00:05 05/17 19:00 Cardiovascular: Negative for chest pain, palpitations, cp cp 05/18 00:05 05/17 19:00 Respiratory: Negative for cough, shortness of breath, wheezing, cp cp 05/18 00:05 05/17 19:00 Abdomen/GI: Positive for abdominal pain, nausea and vomiting, anorexia, cp Negative for diarrhea, constipation, hematemesis, black/tarry stool, rectal bleeding, cp 05/18 00:05 05/17 19:00 Eyes: Negative for injury, pain, redness, and discharge, cp cp 05/18 00:05 05/17 19:00 ENT: Negative for drainage from ear(s), ear pain, sore throat, difficulty cp swallowing, difficulty handling secretions, cp 05/18 00:05/17 19:00 Neuro: Negative for altered mental status, dizziness, headache, weakness, cpcp 05/18 00:05/17 19:00 All other systems are negative, cp cp
[2022-05-16 23:59] LABS: SARS-CoV-2 Antigen Rapid Res Negative (Negative)
--- NOTE | 2022-05-17 00:11 | P.HP ---
Certification for Inpatient Patient admitted to: Inpatient With expected LOS: <2 Midnights Patient will require the following post-hospital care: None Practitioner: I am a practitioner with admitting privileges, knowledge of patient current condition, hospital course, and medical plan of care. Services: Services provided to patient in accordance with Admission requirements found in Title 42 Section 412.3 of the Code of Federal Regulations Patient History Date of Service: 05/17/22 Reason for admission: SBO History of Present Illness: Patient is a 76-year-old male with past medical history of hypertension, ESRD on HD Thursday who presented to the ED after being sent by Dr. Gonzalez. Patient had an EGD done today and was sent over because there was concern for obstruction. He is only complaining of mild abdominal pain. He is passing gas. He denies any vomiting. CT showed "distention of the duodenal C- loop transverse duodenum measuring up 6 cm. This may indicate a mild developing partial mechanical obstruction in the region of the distal duodenum/proximal jejunum. Mild free fluid is seen in the abdomen." No significant lab abnormalities. General surgery was contacted and has agreed to consult. Patient is admitted for further evaluation and treatment. Allergies No Known Allergies Allergy (Verified 08/15/15 09:01) Home medications list reviewed: Yes Home Medications: Amlodipine Besylate 10 mg PO DAILY 08/29/18 Ascorbic Acid [Vitamin C] 500 mg PO DAILY 08/29/18 Aspirin 81 mg PO DAILY 08/29/18 Atorvastatin Calcium 20 mg PO BEDTIME 08/29/18 Calcium Carbonate [Calcium] 2 tab PO DAILY 08/29/18 Cholecalciferol (Vitamin D3) [Vitamin D3] 3,000 unit PO DAILY 08/29/18 Ferric Citrate [Auryxia] 210 mg PO SEECOM 08/29/18 Ferrous Sulfate [Iron] 325 mg PO DAILY 08/29/18 Furosemide 80 mg PO TID 08/29/18 Insulin Aspart [Novolog Penfill] 10 unit SQ BREAKFAST & LUNCH 08/29/18 Insulin Aspart [Novolog Penfill] 15 units SQ DAILY AT SUPPER 08/29/18 Insulin Detemir [Levemir] 10 units SQ BREAKFAST 08/29/18 Insulin Detemir [Levemir] 50 units SQ BEDTIME 08/29/18 Metoprolol Succinate [Toprol Xl*] 25 mg PO DAILY 08/29/18 calcitrioL [Calcitriol] 0.5 mcg PO SEECOM 08/29/18 lisinopriL [Lisinopril] 20 mg PO DAILY 08/29/18 Cefuroxime Axetil [Cefuroxime] 500 mg PO BID #24 tab 09/01/18 - Past Medical/Surgical History Diabetic: Yes -: HTN -: Hyperlipidemia -: ESRD on HD MWF -: Glaucoma Psychosocial/ Personal History: Patient is . - Family History Mother -: Hypertension, Diabetes - Social History Smoking Status: Never smoker Alcohol use: No CD- Drugs: No Caffeine use: Yes Place of Residence: Home Review of Systems Gastrointestinal: Abdominal Pain Physical Examination - Vital Signs Temperature: 98.2 F Blood Pressure: 158/70 Pulse: 72 Respirations: 17 Pulse Ox (%): 100 (room air) - Physical Exam General: Alert, In no apparent distress HEENT: Atraumatic, PERRLA, EOMI, Sclerae nonicteric Neck: Supple, 2+ carotid pulse no bruit, No LAD, Without JVD or thyroid abnorm ality Respiratory: Clear to auscultation bilaterally, Normal air movement Cardiovascular: Regular rate/rhythm, Normal S1 S2 Gastrointestinal: Soft and benign, Non-distended Musculoskeletal: No tenderness Integumentary: No rashes Neurological: Normal speech, Normal strength at 5/5 x4 extr, Normal tone, Normal affect - Studies Laboratory Data (last 24 hrs) 05/16/22 19:00: Sodium 137, Potassium 3.5, BUN 21 H, Creatinine 4.18 H, Glucose 93, Total Bilirubin 0.5, AST 34, ALT 16, Alkaline Phosphatase 65, Lipase 109 05/16/22 19:00: WBC 6.10, Hgb 9.2 L, Hct 28.4 L, Plt Count 179 Assessment and Plan - Problems (Diagnosis) (1) Partial small bowel obstruction Current Visit: Yes Status: Acute (2) Chronic kidney disease Current Visit: Yes Status: Chronic Qualifiers: Chronic kidney disease stage: on chronic dialysis Qualified Code(s): N18.6 - End stage renal disease; Z99.2 - Dependence on renal dialysis (3) Hypertension Current Visit: Yes Status: Chronic Qualifiers: Hypertension type: primary hypertension Qualified Code(s): I10 - Essential (primary) hypertension (4) Anemia Current Visit: Yes Status: Acute Qualifiers: Anemia type: due to chronic kidney disease Chronic kidney disease stage: on chronic dialysis Qualified Code(s): N18.6 - End stage renal disease; D63.1 - Anemia in chronic kidney disease; Z99.2 - Dependence on renal dialysis - Plan Patient is admitted for further management of partial small bowel obstruction. NPO. Very gentle IV hydration as patient is on dialysis. General surgery consulted. Pain medications and antiemetic as needed. Patient denies any episodes of vomiting, no need for NG tube at this time. Received hemodialysis today. Is not due for another session until Thursday. Dr. Veras is his integrated campaign manager. Monitor and replete electrolytes per protocol. Reconcile continue home medications. SCDs for VTE prophylaxis Full code Discharge Plan: Home Plan to discharge in: 48 Hours - Advance Directives Does patient have a Living Will: Yes Does patient have a Durable POA for Healthcare: Yes - Code Status/Comfort Care Code Status Assessed: Yes Code Status: Full Code Physician Review: Patient Assessed, Agree with Above Assessment and Plan Critical Care: No Time Spent Managing Pts Care (In Minutes): 50
[2022-05-17] MEDS ORDERED: HYDRALAZINE HCL 20 MG/ML VIAL ONE (00:34)
[2022-05-17] MEDS ORDERED: NA CHLORIDE 0.9% 1,000 ML IV SCH (01:37)
[2022-05-17] MEDS ORDERED: ACETAMINOPHEN 500 MG TAB PO PRN (01:37)
[2022-05-17 02:34] VITALS: BMI 24.3
[2022-05-17] MEDS: ONDANSETRON 4 MG/2 ML VIAL IV PRN ×2 (05:36→12:37)
[2022-05-17] MEDS: INSULIN -REGULAR HUMAN 50 UNIT/0.5 ML ML SQ SCH ×3 (06:00→16:27)
[2022-05-17 07:12] LABS: Magnesium 1.7 mg/dL (1.6-2.4); Phosphorus 2.6 mg/dL (2.5-4.9)
[2022-05-17 07:15] LABS: Potassium 2.9 mmol/L (3.5-5.1)
[2022-05-17] MEDS ORDERED: MAGNESIUM SULFATE 1 gm IVPB 1 GM/100 ML BAG IV ONE (09:00)
[2022-05-17] MEDS: KCL 20 MEQ/100 mL IVPB 20 MEQ/100 ML BAG IV SCH ×3 (09:11→14:23)
[2022-05-17 11:01] VITALS: O2SAT 98
[2022-05-17] MEDS ORDERED: METOCLOPRAMIDE 10 MG/2mL INJ IV SCH (16:00)
[2022-05-17] MEDS ORDERED: D50W 25 GM/50 ML SYRINGE IV ONE (16:05)
[2022-05-17] MEDS: D10W 250 ML IV PRN ×2 (16:25→22:51)
[2022-05-17] MEDS ORDERED: ONDANSETRON 4 MG/2 ML VIAL IV PRN (16:48)
--- NOTE | 2022-05-17 16:58 | P.PN ---
Subjective Date of Service: 05/17/22 Subjective: No new changes, No C/O voiced, Improving Patient's imaging studies showed a partial small bowel obstruction. Patient with positive flatus. Recent EGD showed gastric retention. We will continue with antiemetics at this time. Consult nephrology for hemodialysis as well. Review of Systems 10-point ROS is otherwise unremarkable Physical Examination - Vital Signs Temperature: 97.8 F Blood Pressure: 190/81 Pulse: 82 Respirations: 19 Pulse Ox (%): 98 - Physical Exam General: Alert, In no apparent distress, Oriented x3 Respiratory: Diminished, Crackles/rales Cardiovascular: Regular rate/rhythm, Normal S1 S2, No murmurs Gastrointestinal: Normal bowel sounds, Soft and benign, Non-distended, No tenderness, No rebound, No guarding Musculoskeletal: No clubbing, No swelling, No tenderness Neurological: Sensation intact, Cranial nerves 3-12 intact - Studies Laboratory Data (last 24 hrs) 05/16/22 19:00: Sodium 137, Potassium 3.5, BUN 21 H, Creatinine 4.18 H, Glucose 93, Total Bilirubin 0.5, AST 34, ALT 16, Alkaline Phosphatase 65, Lipase 109 05/16/22 19:00: WBC 6.10, Hgb 9.2 L, Hct 28.4 L, Plt Count 179 Medications List Reviewed: Yes Assessment & Plan - Problems (Diagnosis) (1) Partial small bowel obstruction Current Visit: Yes Status: Acute (2) Hypertension Current Visit: Yes Status: Chronic Qualifiers: Hypertension type: primary hypertension Qualified Code(s): I10 - Essential (primary) hypertension (3) Diabetes mellitus Onset Date: 08/13/15 Current Visit: No Status: Acute (4) ESRD on peritoneal dialysis Current Visit: No Status: Acute (5) Nausea & vomiting Current Visit: Yes Status: Acute (6) Gastroparesis Current Visit: Yes Status: Acute - Plan PLAN: 1. Hep-Lock IV 2. Surgery consultation 3. Continue with medication for gastroparesis 4. Adjust Reglan dosing 5. Antiemetics 6. Monitor blood sugars closely 7. Monitor electrolytes 8. GI DVT prophylaxis Discharge Plan: Home Plan to discharge in: Greater than 2 days - Advance Directives Does patient have a Living Will: Yes Does patient have a Durable POA for Healthcare: Yes - Code Status/Comfort Care Code Status: Full Code Physician Review: Patient Assessed, Agree with Above Assessment and Plan Critical Care: No Time Spent Managing PTS Care (In Minutes): 35
[2022-05-17] MEDS ORDERED: METOPROLOL XL 25 MG TAB PO SCH (20:42)
[2022-05-17] MEDS ORDERED: LOSARTAN POTASSIUM 50 MG TABLET PO SCH (20:42)
[2022-05-17] MEDS ORDERED: ATORVASTATIN 80 MG TAB PO SCH (21:00)
[2022-05-17] MEDS: AMLODIPINE 10 MG TAB PO SCH (21:21)
[2022-05-17] MEDS: clonazePAM 0.5 MG TAB PO SCH (21:23)
[2022-05-17] MEDS ORDERED: HYDRALAZINE HCL 20 MG/ML VIAL IV PRN (22:11)
[2022-05-18] MEDS: METOCLOPRAMIDE 10 MG/2mL INJ IV SCH ×3 (00:25→12:04)
[2022-05-18 05:24] LABS: Absolute Lymphocytes (CBC) 0.9 K/uL (0.7-4.9); Hematocrit 27.7 % (39.6-49.0); Lymphocytes % 18.8 % (15.3-44.8); MCV 86.8 fL (80-100); MPV 7.6 fL (7.6-11.3); RBC Red Blood Cell Count 3.19 M/uL (4.33-5.43)
[2022-05-18 06:00] LABS: Magnesium 1.9 mg/dL (1.6-2.4); Phosphorus 3.3 mg/dL (2.5-4.9); Potassium 3.3 mmol/L (3.5-5.1); Thyroid Stimulating Hormone 3.98 uIU/mL (0.358-3.740)
[2022-05-18] MEDS ORDERED: METOPROLOL XL 25 MG TAB PO SCH (06:00)
[2022-05-18] MEDS: INSULIN -REGULAR HUMAN 50 UNIT/0.5 ML ML SQ SCH ×3 (06:00→12:00)
--- NOTE | 2022-05-18 07:30 | RAD REPORT ---
EXAM DESCRIPTION: RAD - Abdomen W Erect - 05/18/2022 5:56 am CLINICAL HISTORY: SBO COMPARISON: Abdomen Pelvis Wo Contrast dated 05/16/2022 TECHNIQUE: Supine and upright views of the abdomen were obtained. FINDINGS: No free air or pneumatosis. Antegrade movement is seen in the bowel. The oral contrast adm inistered for the May 16 CT study has reached the rectum. No extravasation of contrast. Stomach is partially decompressed. Dilated duodenum or proximal small bowel is still evident. The May 16 study showed a focal abnormality at the ligament of Treitz as the likely site of partial obstruction . IMPRESSION: Continued dilatation of the duodenum/proximal most jejunum. Antegrade movement of the bowel with oral contrast from the May 16 CT study reaching the distal rectum.
[2022-05-18] MEDS: clonazePAM 0.5 MG TAB PO SCH (08:48)
[2022-05-18] MEDS: AMLODIPINE 10 MG TAB PO SCH (08:48)
[2022-05-18] MEDS ORDERED: LOSARTAN POTASSIUM 50 MG TABLET PO SCH (09:00)
--- NOTE | 2022-05-18 10:19 | P.PN ---
Date of Service: 05/18/22 Had a large bowel movement today. Anticipate discharge home as he is doing much better according to the . Reglan has helped him quite a bit.
[2022-05-18 12:34] VITALS: BP 181/83; TEMP 97.5
--- NOTE | 2022-05-24 21:43 | P.DS ---
Discharge Date: 05/18/22 Disposition: ROUTINE DISCHARGE Discharge Condition: GOOD Reason for Admission: SBO - Problems (1) Partial small bowel obstruction Status: Acute (2) Hypertension Status: Chronic Qualifiers: Hypertension type: primary hypertension Qualified Code(s): I10 - Essential (primary) hypertension (3) Diabetes mellitus Onset Date: 08/13/15 Status: Acute (4) ESRD on peritoneal dialysis Status: Acute (5) Nausea & vomiting Status: Acute (6) Gastroparesis Status: Acute Brief History of Present Illness: Patient is a 76-year-old male with past medical history of hypertension, ESRD on HD Thursday who presented to the ED after being sent by Dr. Eastons. Patient had an EGD done today and was sent over because there was concern for obstruction. He is only complaining of mild abdominal pain. He is passing gas. He denies any vomiting. CT showed "distention of the duodenal C- loop transverse duodenum measuring up 6 cm. This may indicate a mild developing partial mechanical obstruction in the region of the distal duodenum/proximal jejunum. Mild free fluid is seen in the abdomen." No significant lab abnormalities. General surgery was contacted and has agreed to consult. Patient is admitted for further evaluation and treatment. Hospital Course: Patient was scheduled for hemodialysis in the morning. He had a large bowel movement and he feels much better. He has been given some anxiolytics that is also helping him. I will continue these at this time. He also needs to follow up with Gastroenterology for gastroparesis. Continue with Reglan-low dose reglan. He is doing much better and at this time, he is stable for discharge home with outpatient follow-up. Follow-up with nephrology for dialysis in the morning. Probably with Gastroenterology for further GI workup. Patient stable for discharge. Vital Signs/Physical Exam: Temp Pulse Resp BP Pulse Ox 97.5 F 70 18 181/83 H 97 05/18/22 12:00 05/18/22 12:00 05/18/22 12:00 05/18/22 12:00 05/18/22 12:00 General: Alert, In no apparent distress, Oriented x3 Gastrointestinal: Soft and benign, Non-distended, No tenderness, No rebound, No guarding Laboratory Data at Discharge: WBC 4.70 K/uL (4.3-10.9) 05/18/22 04:12 Hgb 8.7 g/dL (13.6-17.9) L 05/18/22 04:12 Hct 27.7 % (39.6-49.0) L 05/18/22 04:12 Plt Count 229 K/uL (152-406) 05/18/22 04:12 Sodium 136 mmol/L (136-145) 05/18/22 04:12 Potassium 3.3 mmol/L (3.5-5.1) L 05/18/22 04:12 BUN 33 mg/dL (7-18) H 05/18/22 04:12 Creatinine 6.11 mg/dL (0.70-1.30) H* 05/18/22 04:12 Glucose 80 mg/dL (74-106) 05/18/22 04:12 Phosphorus 3.3 mg/dL (2.5-4.9) 05/18/22 04:12 Magnesium 1.9 mg/dL (1.6-2.4) 05/18/22 04:12 Total Bilirubin 0.5 mg/dL (0.2-1.0) 05/16/22 19:00 AST 34 U/L (15-37) 05/16/22 19:00 ALT 16 U/L (16-61) 05/16/22 19:00 Alkaline Phosphatase 65 U/L (45-117) 05/16/22 19:00 Triglycerides 64 mg/dL (<150) 05/18/22 04:12 Cholesterol 96 mg/dL (<200) 05/18/22 04:12 HDL Cholesterol 64 mg/dL (40-60) H 05/18/22 04:12 Cholesterol/HDL Ratio 1.50 05/18/22 04:12 Lipase 109 U/L (73-393) 05/16/22 19:00 Home Medications: Amlodipine Besylate 10 mg PO DAILY 08/29/18 Ascorbic Acid [Vitamin C] 500 mg PO DAILY 08/29/18 Aspirin 81 mg PO DAILY 08/29/18 Cholecalciferol (Vitamin D3) [Vitamin D3] 3,000 unit PO DAILY 08/29/18 Ferric Citrate [Auryxia] 210 mg PO SEECOM 08/29/18 Metoprolol Succinate [Toprol Xl*] 25 mg PO DAILY 08/29/18 Atorvastatin Calcium [Lipitor] 80 mg PO BEDTIME 05/17/22 Losartan Potassium 50 mg PO DAILY 05/17/22 Metoclopramide HCl 5 mg PO AC #90 tab 05/18/22 clonazePAM [Clonazepam] 0.5 mg PO BID #60 tab 05/18/22 New Medications: clonazePAM [Clonazepam] 0.5 mg PO BID #60 tab Metoclopramide HCl 5 mg PO AC #90 tab Physician Discharge Instructions: -DC IV and DC home -Follow-up with PCP in 1 to 2 weeks -Follow-up with GI in 1 to 2 weeks -Follow-up with Nephrology for HD in AM -Please call Dr. Barreto at [phone] if any questions regarding hospital stay -Please call nursing station at [phone] if any nursing or medication questions -Return to the emergency room if symptoms worsen Diet: Renal Activity: Fall precautions Time spent managing pt's care (in minutes): 35
== END 2022-05-18 13:46 | disposition home or self-care (01) | DRG 388 ==
LOC: ER 17:19 → 4TH 05-17 00:08
PROVIDERS: ADMIT Hospitalist; ATTEND Hospitalist
DX: K56.600 Partial intestinal obstruction, unspecified as to cause (principal); N18.6 End stage renal disease; I12.0 Hypertensive chronic kidney disease with stage 5 chronic kidney disease or end stage renal disease; E11.43 Type 2 diabetes mellitus with diabetic autonomic (poly)neuropathy; E78.5 Hyperlipidemia, unspecified; K31.84 Gastroparesis; Z99.2 Dependence on renal dialysis; Z79.82 Long term (current) use of aspirin; Z79.4 Long term (current) use of insulin; Z79.899 Other long term (current) drug therapy; Z20.822 Contact with and (suspected) exposure to COVID-19
CPT/HCPCS: 36415; 74019; 74176; 80048; 80053; 80061; 82947; 83036; 83690; 83735; 84100; 84132; 84439; 84443; 85025; 87811; 96374; 96375; 99285; J0360; J2405; J2765; J3475; J3480; J7030